=== PATIENT | male | born 1940 | race Caucasian/White ===

== ENCOUNTER 2018-11-03 11:30 | Observation (INO) | payer OTHER ==
--- OUTSIDE RECORDS SUMMARY | 2018-11-03 11:32 | XMS REPORT | Continuity of Care Document ---
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 Allergies, Adverse Reactions, Alerts Substance Category Reaction Severity Reaction Status Date Comments Source type Reported Immunizations Immunization Date Given Site Status Last Updated Comments Source Results Order Results Value Reference Date Interpretation Comments Source Name Range CHEM eGFR 74 08/09 Result Comment: The eGFR is calculated using the CKD -EPI formula. In most young, healthy individuals the eGFR will be >90 mL/min/ 1.73m2. The eGFR declines with age. An eGFR of 60-89 may be normal in PANEL mL/min/1.73m /2015 some populations, particularly the elderly, for whom the CKD-EPI formula has not been extensively validated. Use of the eGFR is not recommended in the following populations: Greater 2 Heights Individuals with unstable creatinine concentrations, including patients and those with serious co-morbid conditions. Patients with extremes in muscle mass or diet. The data above are obtained from the National Kidney Disease Education Program (NKDEP) which additionally recommends that when the eGFR is used in patients with extremes of body mass index for purposes of drug dosing, the eGFR should be multiplied by the estimated BMI. CHEM POC 1.0 mg/dL 0.5 - 1.4 08/09 PANEL Creatinine /2015 [facility] Abdomen/P Abdomen/Pel CT ABDOMEN AND PELVIS WITH AND WITHOUT CONTRAST. - hayley vis w/wo IV /2016 - Greater w/wo IV contrast CT [place] contrast CT INDICATION: Hematuria, dysuria. Read by: Twin Espinosa MD Dictated Date/time: 08/09/15 07:30 Electronically Signed by: Twin Espinosa MD 08/09/15 07:39 FINAL REPORT Axial images with sagittal and coronal reconstructions were obtained following intestinal contrast and prior to and following nonionic venous contrast as requested, Omnipaque 100 cc. The lung bases are clear. There is fatty infiltration of the liver. A small enhancing right lobe hepatic lesion is consistent with hemangioma. The gallbladder and common duct and spleen appear normal. No renal mass, calculus, hydronephrosis or perinephric stranding is noted. There is a tiny right renal cortical cyst and there are small left parapelvic cysts. The adrenals and pancreas appear normal. There is slight circumferential mural thickening of the distal esophagus and there is a possible small hiatal hernia. Extensive diverticular changes involve the sigmoid and there is mild constipation. There is circumferential mural thickening of the undistended urinary bladder. The prostate is not enlarged. No adenopathy or ascites is seen. Minor atherosclerosis and moderate spondylosis are noted. IMPRESSION: 1. Small volume bladder wall thickening. 2. No upper urinary tract pathology. 3. Fatty liver with probable small right lobe hemangioma. 4. Mural thickening of the distal esophagus possible small hiatal hernia. 5. Sigmoid diverticulosis and constipation. SL: 12 Brain Brain w/wo MR BRAIN WITHOUT AND WITH CONTRAST 05/13 - w/wo contrast /2014 - contrast MRI HISTORY: F03.90 Unspecified dementia without behavioral disturbance [facility] MRI COMPARISON: None Read by: Luciano Gupta MD Dictated Date/time: 05/13/15 15:45 Electronically Signed by: Luciano Gupta MD 05/13/15 15:47 FINAL REPORT FINDINGS: Axial T1-weighted images reveal no evidence of subacute hemorrhage. There is no evidence of intracranial mass or shift of midline structures. Axial FLAIR images show minimal periventricular an d subcortical white matter changes consistent with small vessel ischemic disease.. Axial diffusion weighted images reveal no recent infarct. Axial Gradient echo images show reveal no evidence of prior hemorrhage. Axial T2 images show normal flow-voids in the major vascular structures. There is prominence of ventricles and sulci in a fashion consistent with generalized cerebral atrophy. The paranasal sinuses and mastoid air cells are clear. Postcontrast views include axial, coronal and sagittal sequences with T1- weighting and reveal no evidence of enhancing lesion or vascular malformation. IMPRESSION: 1. Mild generalized cerebral atrophy and chronic small vessel ischemic change. 2. No definite acute abnormality identified. SL: 12 Vital Signs Vital Sign Value Date Comments Source BMI Calculated 25.88 06/24/2015 [facility] Height 167.64 cm 06/24/2015 [facility] Weight 72.727 06/24/2015 [facility] Encounters Location Location Encounter Encounter Reason Attending ADM DC Status Source Details Type Number For Provider Date Date Visit [facility] [id number] Maurice 01/01 01/31 Thony Turcios /2013 [facility] Outpatient [id number] Bryant 05/13 05/14 Thony Robles /2014 [facility] Outpatient [id number] Ty 06/24 06/25 Thony Wise /2014 [facility] Outpatient [id number] Gabriela 08/08 08/09 Thony Hook /[address] [facility] [place] [place] Outpatient [id number] GABRIELA 09/[address] [facility] EDMUND /2016 Thony Procedures Procedure Code Date Perfomer Comments Source
--- OUTSIDE RECORDS SUMMARY | 2018-11-03 11:32 | XMS REPORT ---
:1940 [facility] [address] [place] [address] [place] [id number] Care Team Providers Name Role Phone Unavailable Unavailable Unavailable Problems This patient has no known problems. Allergies, Adverse Reactions, Alerts This patient has no known allergies or adverse reactions. Medications This patient has no known medications.
[2018-11-03 12:01] LABS: Absolute Lymphocytes (CBC) 0.9 K/uL (0.7-4.9); Absolute Monocytes 0.6 K/uL (0.1-1.3); Absolute Neutrophil 3.5 K/uL (1.8-8.0); Basophils % 0.6 % (0-1.3); Eosinophils % 2.4 % (0-4.4); Hematocrit 34.2 % (39.6-49.0); Lymphocytes % 17.5 % (15.3-44.8); MPV 7.9 fL (7.6-11.3); RBC Red Blood Cell Count 3.92 M/uL (4.33-5.43)
[2018-11-03 12:03] LABS: Protime INR 1.02
[2018-11-03 12:21] LABS: ALT/SGPT 18 U/L (12-78); AST/SGOT 13 U/L (15-37); Albumin 3.8 g/dL (3.4-5.0); Alkaline Phosphatase 91 U/L (45-117); BUN Blood Urea Nitrogen 22 mg/dL (7-18); Bicarbonate 28 mmol/L (21-32); Bilirubin Direct 0.1 mg/dL (0-0.2); Bilirubin Total 0.5 mg/dL (0.2-1.0); Glucose Level 140 mg/dL (74-106); NT PRO-BNP 334 pg/mL (<450); Sodium Level 140 mmol/L (136-145); Troponin (Emerg Dept Use Only) < 0.02 ng/mL (0.0-0.045)
--- NOTE | 2018-11-03 12:48 | RAD REPORT ---
EXAM DESCRIPTION: CT - Head Brain Wo Cont - 11/03/2018 12:36 pm CLINICAL HISTORY: Syncope COMPARISON: None TECHNIQUE: Computed axial tomography of the head was obtained. IV contrast was not requested. All CT scans are performed using dose optimization technique as appropriate and may include automated exposure control or mA/KV adjustment according to patient size. FINDINGS: An intracranial bleed is not seen . The ventricles are normal in caliber. No extra-axial fluid collection is noted. Diffuse cerebral atrophy is present Fluid within the sinuses/ mastoids is not seen. IMPRESSION: No acute intracranial abnormality is seen. If patient's symptoms persist MRI of the bra in would be recommended.
--- NOTE | 2018-11-03 13:30 | RAD REPORT ---
EXAM DESCRIPTION: RAD - Chest Single View - 11/03/2018 1:20 pm CLINICAL HISTORY: syncope Chest pain. COMPARISON: No comparisons FINDINGS: Portable technique limits examination quality. The lungs are grossly clear. The heart is upper limit normal in size. No displaced fractures. IMPRESSION: No acute intrathoracic process suspected.
--- NOTE | 2018-11-03 14:51 | RAD REPORT ---
EXAM DESCRIPTION: MRI - Brain Wo Cont - 11/03/2018 2:42 pm CLINICAL HISTORY: weakness, syncope Headache, drowsiness, syncope COMPARISON: Head Brain Wo Cont dated 11/03/2018; Brain Wo Cont dated 06/07/2017 TECHNIQUE: Multi-sequence, multiplanar MR imaging of the brain was performed without contrast. FINDINGS: No intracranial hemorrhage, hydrocephalus or extra-axial fluid collections.A prominent noel bal brain atrophy pattern is seen. Periventricular T2 and FLAIR hyperintensity is noted, unchanged fr om prior study and likely chronic microvascular ischemia. No edema or shift of midline structures. No findings to suspect brain mass. DWI is negative for acute CVA. Midline structures are normally formed. Mastoid air cells and paranasal sinuses are clear. IMPRESSION: Negative for acute CVA or other acute intracranial abnormality. Prominent global brain atrophy is identified.
--- NOTE | 2018-11-03 15:17 | EDPHYS ---
Physician Documentation [facility] Name: Gabriel Castillo Age: 78 yrs Sex: Male : 1940 Arrival Date: 11/03/2018 Time: 11:33 Bed 2 Private MD: ED Physician Cachorro Astudillo HPI: 11/03 11:43 This 78 yrs old Male presents to ER via EMS with complaints of Near Syncope. jmm 11:43 The patient has experienced syncope, collapsed. Onset: The symptoms/episode jmm began/occurred acutely, at 10:30. Duration: This was a single episode. This is a 78 year old male that presents to the ED after a syncopal episode which occurred at approx 1030 am. Patient denies chest pain, denies weakness. Family states the patient is at baseline. Patient had a similar episode last year and was diagnosed with anemia and dehydration. Family states they have not administered iron supplements due to GI effects. . Historical: - Allergies: 11:42 No Known Allergies; sg - Home Meds: 11:42 hydrochlorothiazide 50 mg Oral tab 1 tab once daily [Active]; amlodipine 5 mg tab 1 tab sg once daily [Active]; lisinopril 40 mg Oral tab 1 tab once daily [Active]; donepezil 23 mg oral tab 1 tab once daily [Active]; aspirin 81 mg Oral chew 1 tab once daily [Active]; pantoprazole 40 mg oral TbEC 1 tab once daily [Active]; metformin 500 mg Oral Tb24 1 tab once daily [Active]; atorvastatin 20 mg oral tab 1 tab once daily [Active]; - PMHx: 11:42 Parkinsons; Dementia; sg - Immunization history:: Adult Immunizations up to date. - Social history:: Smoking status: Patient/guardian denies using tobacco. - Ebola Screening: : Patient negative for fever greater than or equal to 101.5 degrees Fahrenheit, and additional compatible Ebola Virus Disease symptoms Patient denies exposure to infectious person Patient denies travel to an Ebola-affected area in the 21 days before illness onset No symptoms or risks identified at this time. ROS: 11:43 Constitutional: Negative for fever, chills, and weight loss, Cardiovascular: Negative jm for chest pain, palpitations, and edema, Respiratory: Negative for shortness of breath, cough, wheezing, and pleuritic chest pain. 11:43 Neuro: Positive for syncope. 11:43 All other systems are negative. Exam: 11:43 Constitutional: This is a well developed, well nourished patient who is awake, alert, jmm and in no acute distress. Head/Face: atraumatic. Eyes: EOMI, no conjunctival erythema appreciated ENT: Moist Mucus Membranes Neck: Trachea midline, Supple Chest/axilla: Normal chest wall appearance and motion. Cardiovascular: Regular rate and rhythm. No edema appreciated Respiratory: Normal respirations, no respiratory distress appreciated Abdomen/GI: Non distended, soft Back: Normal ROM Skin: General appearance color normal 11:43 Neuro: Orientation: is normal, Mentation: is normal, Memory: is normal, Abnormal movements: resting tremor, is located in the right arm and left arm. 11:43 Psych: Behavior/mood is pleasant, cooperative. Vital Signs: 11:35 BP 115 / 66; Pulse 81 MON; Resp 14; Pulse Ox 100% on R/A; iw 12:01 BP 112 / 73; Pulse 64; Resp 15; Pulse Ox 100% on R/A; sg 14:00 BP 108 / 70; Pulse 53; Resp 16 S; Temp 97.8(TE); Pulse Ox 98% on R/A; Weight 71.21 kg; iw Height 5 ft. 6 in. (167.64 cm); Pain 0/10; 17:21 BP 100 / 62; Pulse 62; Resp 16 S; Pulse Ox 98% on R/A; sg 14:00 Body Mass Index 25.34 (71.21 kg, 167.64 cm) iw MDM: 11:43 Patient medically screened. [facility] 15:15 Data reviewed: vital signs, nurses notes. Counseling: I had a detailed discussion with [facility] the patient and/or guardian regarding: the historical points, exam findings, and any diagnostic results supporting the discharge/admit diagnosis, lab results, radiology results, the need for further work-up and treatment in the hospital. ED course: I discussed the patient with Dr. Mariee whom will discuss the patient with Dr. Brice for admission. . 04 11:43 Order name: Basic Metabolic Panel [facility] 11/03 11:43 Order name: CBC with Diff; Complete Time: 13:04 [facility] 11/03 11:43 Order name: LFT's; Complete Time: 13:04 [facility] 11/03 11:43 Order name: Magnesium; Complete Time: 13:04 [facility] 11/03 11:43 Order name: NT PRO-BNP; Complete Time: 13:04 [facility] 11/03 11:43 Order name: PT-INR; Complete Time: 13:04 [facility] 11/03 11:43 Order name: Troponin (emerg Dept Use Only); Complete Time: 13:04 [facility] 11/03 11:43 Order name: XRAY Chest (1 view); Complete Time: 13:31 [facility] 11/03 11:44 Order name: Basic Metabolic Panel; Complete Time: 13:04 [facility] 11/03 11:59 Order name: CT Head Brain wo Cont; Complete Time: 13:04 [facility] 11/03 13:20 Order name: MRI - Brain Wo Cont; Complete Time: 14:55 [facility] 11/03 16:43 Order name: US; Complete Time: 16:44 [facility] 11/03 11:43 Order name: EKG; Complete Time: 11:44 [facility] 11/03 11:43 Order name: Cardiac monitoring; Complete Time: 11:58 [facility] 11/03 11:43 Order name: EKG - Nurse/Tech; Complete Time: 14:07 [facility] 11/03 11:43 Order name: IV Saline Lock; Complete Time: 11:59 [facility] 11/03 11:43 Order name: Labs collected and sent; Complete Time: 11:59 [facility] 11/03 11:43 Order name: O2 Per Protocol; Complete Time: 11:58 [facility] 11/03 11:43 Order name: O2 Sat Monitoring; Complete Time: 11:58 [facility] 11/03 15:16 Order name: EKG - Nurse/Tech; Complete Time: 15:44 [facility] 11/03 15:24 Order name: CONS Physician Consult [facility] 11/03 15:24 Order name: Heart Healthy EDMT Administered Medications: 15:50 Drug: NS 0.9% 500 ml Route: IV; Rate: bolus; Site: right antecubital; sg 17:54 Drug: Xarelto 20 mg Route: PO; iw Disposition: 19:07 Co-signature as Attending Physician, Cachorro Astudillo MD. rn Disposition: 11/03/18 15:16 Hospitalization ordered by Lucille Brice for Observation. Preliminary diagnosis are Syncope and collapse, Unspecified atrial fibrillation, Dehydration. - Bed requested for Telemetry/MedSurg (observation). - Status is Observation. hb - Condition is Stable. - Problem is new. - Symptoms have improved. UTI on Admission? No Signatures: Dispatcher [employer] EDGavi Nunes RN Sina Schwartz, RN RN Vladimir Seaman PA PA [facility] Mary Tellez RN RN iw Nieto, Roman, MD MD rn Baxter, Heather, RN RN Corrections: (The following items were deleted from the chart) 18:00 15:16 Hospitalization Ordered by Lucille Brice MD for Observation. Preliminary dw diagnosis is Syncope and collapse; Unspecified atrial fibrillation; Dehydration. Bed requested for Telemetry/MedSurg (observation). Status is Observation. Condition is Stable. Problem is new. Symptoms have improved. UTI on Admission? No. [facility] 18:42 18:00 11/03/2018 15:16 Hospitalization Ordered by Lucille Brice MD for Observation. hb Preliminary diagnosis is Syncope and collapse; Unspecified atrial fibrillation; Dehydration. Bed requested for Telemetry/MedSurg (observation). Status is Observation. Condition is Stable. Problem is new. Symptoms have improved. UTI on Admission? No. dw
--- NOTE | 2018-11-03 15:17 | ER ---
Nurse's Notes [facility] Name: Gabriel Castillo Age: 78 yrs Sex: Male : 1940 Arrival Date: 11/03/2018 Time: 11:33 Bed 2 Private MD: Diagnosis: Syncope and collapse;Unspecified atrial fibrillation;Dehydration Presentation: 11/03 11:33 Presenting complaint: EMS states: pt was at a day stay respite center, when staff sg members saw him slump forward in a chair while maintaining an upright position, pt appeared unresponsive with eyes opened, no LOC no Trauma, no falls, no hx of seizure like activity. 11:33 Method Of Arrival: EMS: [facility] iw 11:33 Acuity: DAVID 3 iw 11:35 Transition of care: patient was not received from another setting of care. Onset of sg symptoms was November 03, 2018. Risk Assessment: Do you want to hurt yourself or someone else? Patient reports no desire to harm self or others. Initial Sepsis Screen: Does the patient meet any 2 criteria? No. Patient's initial sepsis screen is negative. Does the patient have a suspected source of infection? No. Patient's initial sepsis screen is negative. Care prior to arrival: IV initiated. 22 GA, in the right antecubital area, Glucose check: 160. Historical: - Allergies: 11:42 No Known Allergies; sg - Home Meds: 11:42 hydrochlorothiazide 50 mg Oral tab 1 tab once daily [Active]; amlodipine 5 mg tab 1 tab sg once daily [Active]; lisinopril 40 mg Oral tab 1 tab once daily [Active]; donepezil 23 mg oral tab 1 tab once daily [Active]; aspirin 81 mg Oral chew 1 tab once daily [Active]; pantoprazole 40 mg oral TbEC 1 tab once daily [Active]; metformin 500 mg Oral Tb24 1 tab once daily [Active]; atorvastatin 20 mg oral tab 1 tab once daily [Active]; - PMHx: 11:42 Parkinsons; Dementia; sg - Immunization history:: Adult Immunizations up to date. - Social history:: Smoking status: Patient/guardian denies using tobacco. - Ebola Screening: : Patient negative for fever greater than or equal to 101.5 degrees Fahrenheit, and additional compatible Ebola Virus Disease symptoms Patient denies exposure to infectious person Patient denies travel to an Ebola-affected area in the 21 days before illness onset No symptoms or risks identified at this time. Screenin:45 Abuse screen: Denies threats or abuse. Denies injuries from another. Nutritional sg screening: No deficits noted. Tuberculosis screening: No symptoms or risk factors identified. Fall Risk No fall in past 12 months (0 pts). Secondary diagnosis (15 points) dementia, Gait- Impaired (20 pts.). Mental Status- Overestimates/Forgets Limitations (15 pts.). Total Garcia Fall Scale indicates High Risk Score (45 or more points). Fall prevention measures have been instituted. Side Rails Up X 2 Frequent Obs/Assessments Occuring Family Present and informed to notify staff if the need to leave the bedside. Assessment: 11:43 General: Appears in no apparent distress. comfortable, well groomed, well developed, sg well nourished, Behavior is calm, cooperative, appropriate for age. Pain: Denies pain. Neuro: Level of Consciousness is awake, alert, obeys commands, Oriented to person, Speech Pathology Assistant are equal bilaterally Speech is normal, Facial symmetry appears normal, Pupils are constricted. Cardiovascular: Capillary refill is sluggish in bilateral fingers Chest pain is denied. Respiratory: Airway is patent Respiratory effort is even, unlabored, Respiratory pattern is regular, symmetrical. GI: Abdomen is round non-distended. : No signs and/or symptoms were reported regarding the genitourinary system. EENT: No signs and/or symptoms were reported regarding the EENT system. Derm: Skin is intact, is fragile, is thin, Skin is dry, Skin is dusky, Skin temperature is cool. Musculoskeletal: Circulation, motion, and sensation intact. Range of motion: intact in all extremities. 13:00 Reassessment: Patient appears in no apparent distress at this time. Patient and/or sg family updated on plan of care and expected duration. Pain level reassessed. pt family at bedside at this time, awaiting results, awaiting new orders for CT/MRI, pt family stated undertsanding. 14:00 Reassessment: Patient appears in no apparent distress at this time. Patient and/or sg family updated on plan of care and expected duration. Pain level reassessed. awaiting results for radiology, pt family stated understanding Patient states symptoms have not improved. 15:00 Reassessment: Patient appears in no apparent distress at this time. Patient and/or sg family updated on plan of care and expected duration. Pain level reassessed. pt family at bedside, no new orders received at this time, pt has not provided a urine specimen, pt brief remains clean and dry. 15:10 Reassessment: Patient appears in no apparent distress at this time. bedside monitor sg indicates a EKG reading of 35 bpm, with pause, Thomas RICHMOND notified, a repeat EKG has been ordered, awaiting EKG at this time. 16:00 Reassessment: Patient appears in no apparent distress at this time. Patient and/or sg family updated on plan of care and expected duration. Pain level reassessed. awaiting a bed assignment at this time,pt family at bedside, no new orders received at this time, pt has not provided a urine specimen, pt brief remains clean and dry. 17:00 Reassessment: pt family at bedside, no new orders received at this time, pt has not sg provided a urine specimen, pt brief remains clean and dry. 18:00 Reassessment: Patient appears in no apparent distress at this time. Patient and/or sg family updated on plan of care and expected duration. Pain level reassessed. pt family remains at bedside, attempt to call report to Bonita OLSEN for room 419. Vital Signs: 11:35 BP 115 / 66; Pulse 81 MON; Resp 14; Pulse Ox 100% on R/A; iw 12:01 BP 112 / 73; Pulse 64; Resp 15; Pulse Ox 100% on R/A; sg 14:00 BP 108 / 70; Pulse 53; Resp 16 S; Temp 97.8(TE); Pulse Ox 98% on R/A; Weight 71.21 kg; iw Height 5 ft. 6 in. (167.64 cm); Pain 0/10; 17:21 BP 100 / 62; Pulse 62; Resp 16 S; Pulse Ox 98% on R/A; sg 14:00 Body Mass Index 25.34 (71.21 kg, 167.64 cm) ED Course: 11:33 Patient arrived in ED. iw 11:33 Vladimir Robison PA is PHCP. [facility] 11:33 Cachorro Astudillo MD is Attending Physician. [facility] 11:35 Triage completed. iw 11:37 Sina Yanez, PRETTY is Primary Nurse. sg 11:37 Arm band placed on. sg 11:43 No provider procedures requiring assistance completed. sg 11:43 Maintain EMS IV. Dressing intact. Site clean \T\ dry. Gauge \T\ site: 22 G RAC. IV is sg patent, is intact, with fluids infusing freely, with good blood return. 11:45 Patient has correct armband on for positive identification. Bed in low position. Call sg light in reach. Side rails up X2. Pulse ox on. NIBP on. 11:54 EKG done, by manufacturing technology analyst. reviewed by Vladimir RICHMOND. sm3 12:35 CT Head Brain wo Cont In Process Unspecified. EDMS 13:19 XRAY Chest (1 view) In Process Unspecified. EDMS 14:27 Patient moved to MRI via wheelchair. em2 14:43 MRI - Brain Wo Cont In Process Unspecified. EDMS 14:53 MRI completed. Patient tolerated well. Patient moved back from MRI. em2 15:16 Lucille Brice MD is Hospitalizing Provider. [facility] 15:31 Repeat ekg was done. 3 18:31 Patient admitted, IV remains in place. intact, No redness/swelling at site. sg Administered Medications: 15:50 Drug: NS 0.9% 500 ml Route: IV; Rate: bolus; Site: right antecubital; sg 17:54 Drug: Xarelto 20 mg Route: PO; iw Outcome: 15:16 Decision to Hospitalize by Provider. [facility] 18:31 Admitted to Tele accompanied by tech, family with patient, via stretcher, room 419, sg with chart, Report called to Bonita OLSEN 18:31 Condition: stable 18:31 Discharge instructions given to family, Instructed on the need for admit, Demonstrated understanding of instructions. 18:42 Patient left the ED. hb Signatures: Dispatcher [employer] EDMS Sina Yanez RN RN sg Mickail, Joel, PA PA jmm Williams, Irene, RN RN Charles Miller em2 Leeanna Tidwell RN RN Divine Miller sm3 Corrections: (The following items were deleted from the chart) 12:01 11:33 Presenting complaint: EMS states: pt was at a day stay respite center, when staff sg members saw him slump forward in a chair while maintaining an upright position, pt appeared unresponsive with eyes opened, no LOC no Trauma, no falls, no hx of seizure like activity iw 14:02 14:00 BP 108 / 70; Pulse 53bpm; Resp 16bpm; Spontaneous; Pulse Ox 98% RA; Pain 0/10; iw iw
[2018-11-03] MEDS ORDERED: NA CHLORIDE 0.9% 500 ML ONE (16:05)
--- NOTE | 2018-11-03 16:43 | RAD REPORT ---
EXAM DESCRIPTION: USCarotid Artery Bilateral11/03/2018 4:33 pm CLINICAL HISTORY: Syncope COMPARISON: None FINDINGS: The velocity of the right internal carotid artery equals 54 cm/sec. The right ICA/CCA rati o 0.7 The velocity of the left internal carotid artery equals 61 cm/sec. The left ICA/CCA ratio 0.9 Mild plaque is present within the carotid arteries. The vertebral arteries demonstrate antegrade flow IMPRESSION: Mild plaque within the carotid arteries without evidence of a hemodynamically significan t stenosis NASCET criteria used. Mild 0-49% stenosis Moderate 50-69% stenosis Severe 70-99% stenosis
--- NOTE | 2018-11-03 17:15 | EKG ---
Test Date: 2018-11-03 Test Time: 15:27:08 Administrative Services Coordinator: BUSHRA MEASUREMENT RESULTS: Intervals: Rate: 61 TX: QRSD: 86 QT: 426 QTc: 428 [place]: P: TX: QRS: -15 T: -1 INTERPRETIVE STATEMENTS: Atrial fibrillation Abnormal ECG Compared to ECG 11/03/2018 11:50:32 No significant changes Electronically Signed On 11-03-18 17:14:37 CDT by Claudio Claudio
--- NOTE | 2018-11-03 17:15 | EKG ---
Test Date: 2018-11-03 Test Time: 11:50:32 Data Integration Architect: ANEL MEASUREMENT RESULTS: Intervals: Rate: 70 IL: QRSD: 82 QT: 420 QTc: 453 [place]: P: IL: QRS: -14 T: 2 INTERPRETIVE STATEMENTS: Atrial fibrillation Abnormal ECG No previous ECG available for comparison Electronically Signed On 11-03-18 17:13:28 CDT by Claudio Claudio
[2018-11-03] MEDS ORDERED: RIVAROXABAN 20 MG TABLET PO ONE (18:00)
[2018-11-03] MEDS ORDERED: ONDANSETRON 4 MG/2 ML VIAL IV PRN (19:39)
--- NOTE | 2018-11-03 22:54 | CON ---
History Of Present Illness: Mr. Castillo was sent from the Alzheimer's unit to the hospital. He slump ed over and he had tonic-clonic activity, tongue-biting, confusion and the people's witnessed this we re quite certain that this is seizure. He had a similar episode in around first of the year and was seen in [place] ER. Apparently, he has had atrial fibrillation come and go, but he is not on any an ticoagulants. Mr. Castillo has very severe dementia. A brain MRI shows atrophy, but no strokes. Elec trocardiograms show atrial fib. A carotid artery ultrasound shows mild plaque with no significant st enosis. Medications: We do not have a list of his outpatient medications. We think they may include amlodip ine, hydrochlorothiazide, lisinopril, donepezil, aspirin, Protonix, metformin, and atorvastatin. Past Medical History: We understand he has a history of Parkinson's disease and dementia. Physical Examination: General: He is noncommunicative. He makes eye contact and cannot answer any questions or seemingly understand. HEART: Irregularly irregular that is going about 70 beats per minute. LUNGS: Clear. ABDOMEN: Soft. EXTREMITIES: Distal pulses are normal. Impression: The patient probably had a seizure. I am not sure if the focus was an old stroke or not . MRI does not show it. He is certainly at risk for having strokes with atrial fib and no anticoagu lation. I would recommend that we anticoagulate him. I would not recommend we try and revert his rh ythm to sinus and keep the rate controlled. It seems to be controlled without any major effort and Marquez Lo decide whether his spell might have been a seizure or something else altogether. We will mo nitor his heart rhythm and see if gets bradycardic sometimes, it could be when he switches from atria l fibrillation to sinus rhythm. He has pauses that make him fall. Thank you very much for your kind referral of Mr. Castillo. I will follow him with you. CHIQUITA/SANDRA Voice ID: [id number] Report ID: [id number]
[2018-11-03 23:06] VITALS: BMI 25.3
[2018-11-04 06:12] LABS: Absolute Lymphocytes (CBC) 1.2 K/uL (0.7-4.9); Absolute Monocytes 0.6 K/uL (0.1-1.3); Absolute Neutrophil 2.9 K/uL (1.8-8.0); Basophils % 0.7 % (0-1.3); Eosinophils % 2.9 % (0-4.4); Hematocrit 31.5 % (39.6-49.0); Lymphocytes % 24.2 % (15.3-44.8); MPV 7.9 fL (7.6-11.3); RBC Red Blood Cell Count 3.66 M/uL (4.33-5.43)
[2018-11-04 06:28] LABS: Albumin 3.4 g/dL (3.4-5.0); Bilirubin Total 0.5 mg/dL (0.2-1.0); Magnesium 2.1 mg/dL (1.8-2.4); Phosphorus 3.2 mg/dL (2.5-4.9); Potassium 3.8 mmol/L (3.5-5.1); Protein, Total 6.2 g/dL (6.4-8.2)
[2018-11-04] MEDS ORDERED: POTASSIUM 25 MEQ EFFERV TAB PO ONE (07:23)
[2018-11-04] MEDS ORDERED: PNEUMOCOCCAL VACCINE 0.5 ML IMVAC ONE (08:00)
--- NOTE | 2018-11-04 08:08 | P.HP ---
Certification for Inpatient Patient admitted to: Observation With expected LOS: <2 Midnights Patient will require the following post-hospital care: None Practitioner: I am a practitioner with admitting privileges, knowledge of patient current condition, hospital course, and medical plan of care. Services: Services provided to patient in accordance with Admission requirements found in Title 42 Section 412.3 of the Code of Federal Regulations Patient History Date of Service: 11/03/18 History of Present Illness: The 78-year-old gentleman who appear to have it generalized tonic clonic seizure. This is the 2nd event he had this past year according to his . In the emergency room he was found to have atrial fibrillation. Concern initially was that he had a stroke and an MRI was performed. This came back negative. He lives in an Alzheimer's unit because of advanced Alzheimer's dementia. Patient tends to sleep quite a bit according to his . Will get an EEG as well as evaluation by his neurologist, Dr. Lo. Anticipate discharge back to the Alzheimer's unit in the next 24-48 hr. Allergies No Known Allergies Allergy (Unverified 11/03/18 15:51) Home Medications: Amlodipine Besylate 5 mg PO DAILY 11/03/18 Aspirin 81 mg PO DAILY 11/03/18 Atorvastatin Calcium [Lipitor*] 20 mg PO BEDTIME 11/03/18 Donepezil HCl 10 mg PO BID 11/03/18 Lisinopril 40 mg PO DAILY 11/03/18 Memantine HCl 10 mg PO BID 11/03/18 Metformin HCl 500 mg PO BID 11/03/18 PARoxetine HCl [Paxil*] 10 mg PO DAILY 11/03/18 Pantoprazole Sodium 40 mg PO DAILY 11/03/18 Tamsulosin HCl 0.4 mg PO DAILY 11/03/18 glipiZIDE [Glucotrol*] 5 mg PO DAILY 11/03/18 hydroCHLOROthiazide [Hydrochlorothiazide] 50 mg PO DAILY 11/03/18 - Past Medical/Surgical History Has patient received pneumonia vaccine in the past: No Diabetic: Yes -: HTN -: dementia -: alzheimers -: hyperlipidemia -: GERD -: BPH -: prostate ca Past Surgical History: Unable to obtain - Family History Mother History Unknown: Yes Notes: in car accident when patient was young Father History Unknown: Yes Notes: in car accident when patient was young Brother History Unknown: Yes - Social History Smoking Status: Former smoker Alcohol use: Yes CD- Drugs: No Caffeine use: Yes Place of Residence: Home Review of Systems 10-point ROS is otherwise unremarkable Physical Examination - Vital Signs Temperature: 98.0 F Blood Pressure: 110/61 Pulse: 70 Respirations: 16 Pulse Ox (%): 98 - Physical Exam General: Alert, In no apparent distress, Oriented x3 HEENT: Atraumatic, PERRLA, Mucous membr. moist/pink, EOMI, Sclerae nonicteric Neck: Supple, 2+ carotid pulse no bruit, No LAD, Without JVD or thyroid abnormality Respiratory: Clear to auscultation bilaterally, Normal air movement Cardiovascular: Regular rate/rhythm, Normal S1 S2, No murmurs Gastrointestinal: Normal bowel sounds, Soft and benign, Non-distended, No tenderness Musculoskeletal: No clubbing, No swelling, No tenderness Integumentary: No rashes Neurological: Normal gait, Normal speech, Normal strength at 5/5 x4 extr, Normal tone, Sensation intact, Cranial nerves 3-12 intact, Normal affect Lymphatics: No axilla or inguinal lymphadenopathy - Studies Laboratory Data (last 24 hrs) 11/03/18 11:36: PT 12.0, INR 1.02 11/03/18 11:36: WBC 5.1, Hgb 11.4 L, Hct 34.2 L, Plt Count 156 11/03/18 11:36: Sodium 140, Potassium 4.0, BUN 22 H, Creatinine 1.21, Glucose 140 H, Magnesium 2.0, Total Bilirubin 0.5, AST 13 L, ALT 18, Alkaline Phosphatase 91 Assessment & Plan - Problems (Diagnosis) (1) Alzheimer's dementia Current Visit: Yes Status: Acute (2) Generalized tonic-clonic seizure Current Visit: Yes Status: Acute (3) Atrial fibrillation Current Visit: Yes Status: Acute - Plan Plan: 1. EEG and neurology consultation 2. Start Keppra 3. Appreciate Cardiology input for atrial fibrillation recommendation. Continue anti coagulation 4. GI and DVT prophylaxis Discharge Plan: Intermediate Plan to discharge in: Greater than 2 days - Advance Directives Does patient have a Living Will: No Does patient have a Durable POA for Healthcare: No - Code Status/Comfort Care Code Status Assessed: Yes Code Status: Full Code Critical Care: No Time Spent Managing PTS Care (In Minutes): 40
[2018-11-04] MEDS ORDERED: levETIRAcetam 500 MG TAB PO SCH (09:00)
--- NOTE | 2018-11-04 14:04 | P.PN ---
Subjective Date of Service: 11/04/18 Subjective: Tolerating diet, Improving, Working w/ PT, Doing well, Other (No Seizure activity since last night. Denies CP, SOB or any other c/o) Review of Systems 10-point ROS is otherwise unremarkable Physical Examination - Vital Signs Temperature: 98.0 F Blood Pressure: 110/61 Pulse: 79 Respirations: 18 Pulse Ox (%): 98 - Physical Exam General: Alert, In no apparent distress, Other (Pill roiling Tremor Noted ) Respiratory: Normal air movement, Expiratory wheezes Cardiovascular: Regular rate/rhythm, Normal S1 S2 Gastrointestinal: Normal bowel sounds, No tenderness Musculoskeletal: No tenderness Integumentary: No rashes Neurological: Normal speech, Abnormal tone, Abnormal affect, Dementia Lymphatics: No axilla or inguinal lymphadenopathy - Studies Medications List Reviewed: Yes Assessment And Plan - Current Problems (Diagnosis) (1) Generalized tonic-clonic seizure Current Visit: Yes Status: Acute Plan: Pt presenting with Syncopal episode, most likely Seizure like activity -Currently started on Keppra 500mg Daily -Neurology consulted. awaiting reccs -Brain MRI, Carotid Doppler and Head CT negative -EEG pending at this time -F.u with Reccs (2) Atrial fibrillation Current Visit: Yes Status: Acute Plan: New onset Atrial Fibrillation -Cardiology consulted. appreciated Reccs -Anticoagulation with Xarelto -No Antiarrhythmics at this time recc (3) Alzheimer's dementia Current Visit: Yes Status: Chronic Qualifiers: Alzheimer's disease onset: late-onset Dementia behavioral disturbance: without behavioral disturbance Qualified Code(s): G30.1 - Alzheimer's disease with late onset; F02.80 - Dementia in other diseases classified elsewhere without behavioral disturbance (4) HTN (hypertension) Current Visit: Yes Status: Chronic Qualifiers: Hypertension type: essential hypertension Qualified Code(s): I10 - Essential (primary) hypertension (5) Diabetes Current Visit: Yes Status: Chronic Qualifiers: Diabetes mellitus type: type 2 Diabetes mellitus halfway insulin use: without buttermilk drier operator use Diabetes mellitus complication status: without complication Qualified Code(s): E11.9 - Type 2 diabetes mellitus without complications (6) Hyperlipidemia Current Visit: Yes Status: Chronic Qualifiers: Hyperlipidemia type: mixed hyperlipidemia Qualified Code(s): E78.2 - Mixed hyperlipidemia - Plan Pending clinical Improvement. Awaiting EEG and Neurology consultation at this time. Continue with Keprra for now Discharge Plan: Home Plan to discharge in: Greater than 2 days - Code Status/Comfort Care Code Status Assessed: Yes Critical Care: No
[2018-11-04] MEDS ORDERED: RIVAROXABAN 20 MG TABLET PO SCH (17:00)
[2018-11-04] MEDS: levETIRAcetam 500 MG/5 ML OSYR PO SCH ×2 (20:37→21:00)
[2018-11-04 20:38] VITALS: BP 90/60; TEMP 98
[2018-11-04] MEDS ORDERED: DONEPEZIL HCL 5 MG TAB PO SCH (21:00)
[2018-11-04] MEDS ORDERED: HOME MED 1 EA UNK (Donepezil Hcl [Donepezil Hcl] 10 MG) PO SCH (21:00)
[2018-11-04] MEDS ORDERED: levETIRAcetam 500 MG/5 ML OSYR PO SCH (21:00)
[2018-11-04] MEDS ORDERED: MEMANTINE HCL 10 MG TABLET PO SCH (21:00)
[2018-11-04] MEDS ORDERED: ATORVASTATIN 20 MG TAB PO SCH (21:00)
[2018-11-04 21:50] VITALS: O2SAT 98
--- NOTE | 2018-11-05 02:25 | CON ---
Date of Consultation: 11/04/2018 Reason: Possible seizure. History Of Present Illness: A 78-year-old gentleman with advanced Alzheimer's disease. He actually lives with his . He was at a gathering place, which is a local organization for patients with de mentia. It was noticed that he slumped over and had some twitching and jerking. The does not r eally describe tonic or colonic activity. He was confused, but he is very confused at baseline, brou ght to the emergency department, was in atrial fibrillation, which may be chronic. He was admitted t o the [facility] given the atrial fibrillation and the possible seizure. Brain MRI did not demonstrate a new stroke. Doppler did not demonstrate any stenosis. EEG did not actually demonstrate any epile ptiform abnormalities. Several episodes of jerking were not associated with any changes in the EEG. EKG still demonstrates Afib. He is on Xarelto and Keppra has been added to his regimen as well. Co nsultation was requested. Past Medical History: Advanced Alzheimer's disease, hypertension, hyperlipidemia, depression. Medications: Norvasc, aspirin, Lipitor, Aricept, Keppra 500 twice daily, lisinopril, Namenda 10 twic e daily, Paxil has been added by his primary care physician, Dr. Atkinson. He is on Xarelto 20, Flomax. Allergies: NONE. Social History: Drinks on occasion. Does not smoke. Requires assistance with all activities of hnana ly living. Family History: Noncontributory. Review of Systems: General: Chronically ill. Eyes: Negative. Ears, Nose, and Throat: No dysphagia. Cardiovascular: Atrial fibrillation, hypertension. Pulmonary: Negative. GI: Negative. : Negative. Musculoskeletal: Negative. Neurologic: As noted. Psychiatric: Negative. Endocrine: Negative. Hematologic: On Xarelto. Physical Examination: Vital Signs: 97.9, 56, 18, 91/51. General: He is an elderly gentleman, lying in bed, arousable, confused, difficulty even following si mple commands or completing a sentence. Neurologic: Pupils reactive. Ocular motion full. Noriega full. Face symmetric. Tongue midline. S oft palate elevates bilaterally. Extremity strength greater than 4+ throughout. He has resting trem or bilaterally, right greater than left, with cogwheeling and rigidity. Sensation intact to painful stimuli. Reflexes 1/4. Toes are downgoing. Cerebellar exam demonstrates no ataxia. Gait not teste d. Pertinent Laboratory Data: As noted. EKG, QTc 428. Impression: Syncope episodes not highly convincing for seizure, although he has had 2 events this ye ar and could potentially be related to some type of bradyarrhythmia as well. Plan: I would decrease the Keppra to 500 and let him go home with his . He can follow up in the clinic in 1-2 weeks. Thank you for the consult. LE Voice ID: [id number] Report ID: [id number]
[2018-11-05] MEDS ORDERED: PANTOPRAZOLE 40MG TABLET PO SCH (07:30)
[2018-11-05] MEDS ORDERED: HOME MED 1 EA UNK (Lisinopril [Lisinopril] 40 MG) PO SCH (09:00)
[2018-11-05] MEDS ORDERED: hydroCHLOROthiazide 25 MG TAB PO SCH (09:00)
[2018-11-05] MEDS ORDERED: LISINOPRIL 20 MG TAB PO SCH (09:00)
[2018-11-05] MEDS ORDERED: TAMSULOSIN 0.4 MG SR CAP PO SCH (09:00)
[2018-11-05] MEDS ORDERED: ASPIRIN 81 MG CHEWABLE TABLET PO SCH (09:00)
[2018-11-05] MEDS ORDERED: AMLODIPINE 5 MG TAB PO SCH (09:00)
[2018-11-05] MEDS ORDERED: PARoxetine HCl 10 MG TAB PO SCH (09:00)
[2018-11-05] MEDS ORDERED: HYDROCHLOROTHIAZIDE 50 MG PO SCH (09:00)
--- NOTE | 2018-11-07 08:34 | ECHO ---
HEIGHT: 5 ft 6 in WEIGHT: 157 lb 0 oz DATE OF STUDY: 11/04/[address]: Lucille Brice MD 2-DIMENSIONAL: YES M.MODE: YES DOPPLER: YES COLOR FLOW: YES TDS: NO PORTABLE: NO DEFINITY: NO BUBBLE STUDY: NO DIAGNOSIS: SYNCOPAL EPISODE CARDIAC HISTORY: CATHERIZATION: NO SURGERY: NO PROSTHETIC VALVE: NO PACEMAKER: NO MEASUREMENTS (cm) DIASTOLIC (NORMALS) SYSTOLIC (NORMALS) IVSd 1.0 (0.6-1.2) LA Diam 4.1 (1.9-4.0) LVEF 73% LVIDd 4.8 (3.5-5.7) LVIDs 2.8 (2.0-3.5) %FS 42% LVPWd 1.0 (0.6-1.2) Ao Diam 3.3 (2.0-3.7) 2 DIMENSIONAL ASSESSMENT: RIGHT ATRIUM: DILATED LEFT ATRIUM: DILATED RIGHT VENTRICLE: DILATED LEFT VENTRICLE: NORMAL TRICUSPID VALVE: NORMAL MITRAL VALVE: NORMAL PULMONIC VALVE: NORMAL AORTIC VALVE: NORMAL PERICARDIAL EFFUSION: NONE AORTIC ROOT: NORMAL LEFT VENTRICULAR WALL MOTION: NORMAL DOPPLER/COLOR FLOW: MILD TO MODERATE AORTIC AND TRICUSPID REGURGITATION. COMMENTS: MILD TO MODERATE AORTIC AND TRICUSPID REGURGITATION. NORMAL LEFT VENTRICULAR EJECTION FRACTION. MILD RIGHT ATRIAL ENLARGEMENT AND RIGHT VENTRICULAR ENLARGEMENT. TECHNOLOGIST: Kya RIZVI
--- NOTE | 2018-11-09 08:53 | EEG ---
CHART: [id number] TEST ID#: [id number] DATE OF STUDY: 11/04/2018 THE EEG WAS RECORDED PORTABLE IN THE PATIENTS ROOM ON A 17 CHANNEL MACHINE. ELECTRODES WERE APPLIED IN THE USUAL MANNER USING THE INTERNATIONAL 10-20 SYSTEM. THE WAKING BACKGROUND RHYTHM IN THIS RECORD CONSISTS OF POORLY DEVELOPED AND POORLY ORGANIZED WAVES OF UP TO 8 HZ., MAXIMAL IN THE POSTERIOR HEAD REGIONS WHICH ATTENUATE NORMALLY WITH EYE OPENING. ADMIXED AND SUPERIMPOSED SLOW WAVES OF 4-6 HZ ARE NOTED IN A SHIFTING DISTRIBUTION. SEVERAL JERKS ARE NOT ASSOCIATED WITH ANY SEGMENT IN THE ONGOING ELECTROENCEPHALOGRAM RECORD. THERE ARE NO FOCAL OR LATERALIZING FEATURES. NO EPILEPTIFORM ACTIVITY APPEARS. SLEEP DID NOT OCCUR. HYPERVENTILATION WAS NOT PERFORMED. PHOTIC STIMULATION PRODUCED POOR DRIVING BILATERALLY. IMPRESSION: ABNORMAL EEG BECAUSE OF GENERALIZED AND EXCRSSIVE SLOWING OF THE BACKGROUND. THE ABOVE SUGGESTS DIFFUSE CEREBRAL DYSFUNCTION.
== END 2018-11-04 22:35 | disposition home or self-care (01) ==
LOC: ER 11:30 → ERHOLD 15:24 → 4TH 18:36
PROVIDERS: ADMIT Family Medicine; ATTEND Hospitalist
DX: G40.89 Other seizures (principal); G30.9 Alzheimer's disease, unspecified; F02.81 Dementia in other diseases classified elsewhere, unspecified severity, with behavioral disturbance; I48.91 Unspecified atrial fibrillation; C61 Malignant neoplasm of prostate; E78.5 Hyperlipidemia, unspecified; K21.9 Gastro-esophageal reflux disease without esophagitis; Z87.891 Personal history of nicotine dependence
CPT/HCPCS: 93005 ×2; 93306; 95819; 85025 ×2; 80048; 36415; 83735 ×2; 84100; 85610; 82962 ×4; 80076; 84484; 80053; 83880; 70450; 71045; 93880; 70551; 97165; 99285; G0378 ×2; 90670

== ENCOUNTER 2019-07-28 17:00 | Inpatient (IN) | payer OTHER ==
--- OUTSIDE RECORDS SUMMARY | 2019-07-28 17:02 | XMS REPORT ---
:1940 [facility] Address [address] [place] [address] [place] [id number] Care Team Providers Name Role Phone Unavailable Unavailable Unavailable Problems This patient has no known problems. Allergies, Adverse Reactions, Alerts This patient has no known allergies or adverse reactions. Medications This patient has no known medications.
[2019-07-28] MEDS ORDERED: NA CHLORIDE 0.9% 1,000 ML ONE ×2 (18:43→23:28)
--- NOTE | 2019-07-28 19:04 | RAD REPORT ---
EXAM DESCRIPTION: Joe Single View07/28/2019 6:53 pm CLINICAL HISTORY: cough COMPARISON: none FINDINGS: The lungs appear clear of acute infiltrate. The heart is borderline enlarged IMPRESSION: No acute abnormalities displayed
--- NOTE | 2019-07-28 19:07 | RAD REPORT ---
EXAM DESCRIPTION: CT - Head Brain Wo Cont - 07/28/2019 6:55 pm CLINICAL HISTORY: Alteration of awareness/confusion COMPARISON: October 2018 TECHNIQUE: Computed axial tomography of the head was obtained. IV contrast was not requested. All CT scans are performed using dose optimization technique as appropriate and may include automated exposure control or mA/KV adjustment according to patient size. FINDINGS: An intracranial bleed is not seen . The ventricles are normal in caliber. No extra-axial fluid collection is noted. Diffuse cerebral atrophy. Fluid within the sinuses/ mastoids is not seen. IMPRESSION: No acute intracranial abnormality is seen.
[2019-07-28 20:20] LABS: Absolute Lymphocytes (CBC) 0.3 K/uL (0.7-4.9); Basophils % 0.2 % (0-1.3); Hematocrit 24.6 % (39.6-49.0); Lymphocytes % 7.9 % (15.3-44.8); MPV 7.5 fL (7.6-11.3); RBC Red Blood Cell Count 2.94 M/uL (4.33-5.43)
[2019-07-28 20:26] LABS: Protime INR 1.15
[2019-07-28 20:39] LABS: Urine Appearance CLOUDY; Urine Bilirubin NEGATIVE (NEG); Urine Blood 3+ (NEG); Urine Color DK YELLOW; Urine Glucose NEGATIVE (NEG); Urine Protein 1+ (NEG); Urine pH 6.5 (5.0-7.0)
[2019-07-28 20:42] LABS: ALT/SGPT 19 U/L (12-78); AST/SGOT 12 U/L (15-37); Albumin 3.3 g/dL (3.4-5.0); Alkaline Phosphatase 102 U/L (45-117); BUN Blood Urea Nitrogen 19 mg/dL (7-18); Bicarbonate 27 mmol/L (21-32); Bilirubin Direct 0.2 mg/dL (0-0.2); Bilirubin Total 0.7 mg/dL (0.2-1.0); CKMB Creatine Kinase MB < 1.0 ng/mL (0.3-3.6); Creatine Phosphokinase 123 U/L (39-308); Glucose Level 99 mg/dL (74-106); Lipase 143 U/L (73-393); Potassium 3.9 mmol/L (3.5-5.1); Protein, Total 6.5 g/dL (6.4-8.2); Sodium Level 140 mmol/L (136-145); Troponin (Emerg Dept Use Only) < 0.02 ng/mL (0.0-0.045)
[2019-07-28 20:43] LABS: Urine White Blood Cell Casts OK
[2019-07-28 20:44] LABS: Blood Morphology Comment NOT SEEN (NOT SEEN); Platelet Estimate DECR
[2019-07-28] MEDS ORDERED: ACETAMINOPHEN 650MG/RECT SUPP PR ONE (20:54)
[2019-07-28] MEDS ORDERED: ACETAMINOPHEN 325 MG/SUPP PR ONE (20:55)
[2019-07-28 20:57] LABS: Urine RBC TNTC /HPF (NONE SEEN)
[2019-07-28 20:58] LABS: Urine Amorphous Sediment 2+ /HPF (NONE SEEN); Urine Bacteria 20-50 /HPF (NONE SEEN); Urine Culture Reflex Order REFLEXED
[2019-07-28 20:59] LABS: Urine Coarse Granular Casts 0-5 /LPF (NONE SEEN); Urine Mucus 4+ /HPF (NONE SEEN)
[2019-07-28] MEDS ORDERED: DIPHENHYDRAMINE 50 MG/ML VIAL ONE (22:29)
--- NOTE | 2019-07-28 22:29 | ER ---
Nurse's Notes [facility] Name: Gabriel Castillo Age: 79 yrs Sex: Male : 1940 Arrival Date: 07/28/2019 Time: 17:02 Bed 7 Private MD: Twin Atkinson E Diagnosis: Urinary tract infection, site not specified;Altered mental status, unspecified;Fever, unspecified Presentation: 07/28 17:11 Presenting complaint: states: Cough and fever that began this morning. Transition ss of care: patient was not received from another setting of care. Onset of symptoms was July 28, 2019. Risk Assessment: Do you want to hurt yourself or someone else? Patient reports no desire to harm self or others. Initial Sepsis Screen: Does the patient meet any 2 criteria? Altered Mental Status. Does the patient have a suspected source of infection? No. Patient's initial sepsis screen is negative. Care prior to arrival: None. 17:11 Method Of Arrival: Wheelchair ss 17:11 Acuity: DAVID 3 ss Triage Assessment: 17:15 General: Appears in no apparent distress. uncomfortable, Behavior is cooperative, bp appropriate for age, anxious. Pain: Denies pain. EENT: No deficits noted. Neuro: Level of Consciousness is awake, alert, PT TREMULOUS. Cardiovascular: No deficits noted. Respiratory: No deficits noted. GI: No signs and/or symptoms were reported involving the gastrointestinal system. : No signs and/or symptoms were reported regarding the genitourinary system. Derm: No deficits noted. Musculoskeletal: No deficits noted. Historical: - Allergies: 17:12 No Known Allergies; ss - PMHx: 17:12 Dementia; Parkinsons; High Cholesterol; Hypertension; tremors; Diabetes - NIDDM; ss - Immunization history:: Adult Immunizations up to date. - Social history:: Smoking status: Patient/guardian denies using tobacco. - Ebola Screening: : Patient denies exposure to infectious person Patient denies travel to an Ebola-affected area in the 21 days before illness onset. Screenin:22 Abuse screen: Denies threats or abuse. Denies injuries from another. Nutritional bp screening: No deficits noted. Tuberculosis screening: No symptoms or risk factors identified. Fall Risk No fall in past 12 months (0 pts). Secondary diagnosis (15 points) PARKINSON'S. Assessment: 17:15 General: SEE TRIAGE NOTE. bp 18:09 Reassessment: PT PENDING EVAL, VS STABLE. bp 18:40 Reassessment: XRAY AT B/S. bp 18:49 Reassessment: PT TO CT. bp 22:00 General: Appears in no apparent distress. Behavior is calm. Pain: Unable to use pain vc scale. Patient is disoriented. Patient is unresponsive. Neuro: Level of Consciousness is awake, confused, Oriented to person. Cardiovascular: Capillary refill < 3 seconds. Respiratory: Airway is patent Respiratory effort is even. GI: Abd is soft and non tender. : Urine is cloudy, orange in color. EENT: No deficits noted. Derm: scratches noted to scrotum and buttocks. Musculoskeletal: Range of motion: limited in all extremities. 22:12 Reassessment: Patient to CT via stretcher. vc 22:25 Reassessment: Patient back from CT, manometer technician states patient looks like he is breaking vc out with hives, provider notified, new orders as follows, Benadryl 25 mg IVP times one dose now. VORB. 23:00 Reassessment: Patient and/or family updated on plan of care and expected duration. Pain vc level reassessed. 07/29 00:00 Reassessment: Patient is laying with his eyes closed. No grimacing or moaning. Family vc no longer at bedside. 00:48 Reassessment: Attempted to call report to 4th floor, will try back. vc 01:19 Reassessment: Report given to PRETTY Ybarra. vc Vital Signs: 07/28 17:12 BP 114 / 50; Pulse 86; Resp 20; Temp 100.2(TE); Pulse Ox 98% ; Weight 64.86 kg; Height ss 5 ft. 6 in. (167.64 cm); 18:09 BP 106 / 54; Pulse 68; Resp 15; Pulse Ox 97% ; bp 18:48 BP 109 / 55; Pulse 80; Resp 19; Pulse Ox 100% ; bp 19:30 BP 117 / 50; Pulse 69; Resp 18; Pulse Ox 100% on R/A; vc 20:30 BP 110 / 51; Pulse 88; Resp 17; Temp 102.2(A); Pulse Ox 100% on R/A; vc 20:38 Temp 102.2(A); aj1 21:30 BP 112 / 54; Pulse 72; Resp 15; Pulse Ox 100% on R/A; vc 22:00 BP ??? / 0; vc 22:30 BP 101 / 57; Pulse 61; Resp 18; Pulse Ox 99% on R/A; vc 22:37 Temp 100.7(A); vc 07/29 00:15 BP 101 / 50; Pulse 61; Resp 16; Pulse Ox 99% on R/A; vc 01:00 BP 91 / 59; Pulse 65; Resp 18; Pulse Ox 98% on R/A; vc 07/28 17:12 Body Mass Index 23.08 (64.86 kg, 167.64 cm) ss ED Course: 07/28 17:02 Patient arrived in ED. mr 17:02 Twin Atkinson MD is Private Physician. mr 17:11 Triage completed. ss 17:12 Arm band placed on right wrist. ss 17:14 Mounika Wilkerson, RN is Primary Nurse. ph 17:22 Patient has correct armband on for positive identification. Bed in low position. Call bp light in reach. Side rails up X2. 17:32 EKG done, by ED staff. jb1 18:03 Portillo Lamar NP is PHCP. pm1 18:03 Genaro Briggs MD is Attending Physician. pm1 18:49 Nish Dimas, PRETTY is Primary Nurse. bp 18:59 CT Head Brain wo Cont In Process Unspecified. EDMS 18:59 Chest Single View XRAY In Process Unspecified. EDMS 20:30 Missed attempt(s): 20 gauge Bleeding controlled, band aid applied, catheter tip intact. oe 21:20 Radiology exam delayed due to IV insertion attempt and/or patient not having vm2 appropriate IV at this time. 21:56 Inserted saline lock: 20 gauge in right forearm, using aseptic technique. oe 22:28 China Nunez MD is Hospitalizing Provider. pm1 22:35 CT Abd/Pelvis - IV Contrast Only In Process Unspecified. EDMS 07/29 01:03 Patient admitted, IV remains in place. vc 01:03 No provider procedures requiring assistance completed. vc Administered Medications: 07/28 20:30 Drug: NS 0.9% 1000 ml Route: IV; Rate: 1000 ml; Site: left forearm; vc 22:00 Follow up: Response: No adverse reaction; IV Status: Completed infusion vc 20:50 CANCELLED (Physician Discretion): Tylenol 1000 mg PO once pm1 20:58 Drug: Tylenol Suppository 325 mg {Note: temp 102.2.} Route: [place]; vc 22:00 Follow up: BP ??? / 0; Response: No adverse reaction; Temperature is decreased vc 20:59 Drug: Tylenol Suppository 650 mg Route: [place]; vc 22:00 Follow up: Response: No adverse reaction; Temperature is decreased vc 22:25 Drug: Benadryl 25 mg Route: IVP; Site: right forearm; vc 23:47 Follow up: Response: No adverse reaction; Marked relief of symptoms vc 23:00 Drug: NS 0.9% 1000 ml Route: IV; Rate: 100 ml/hr; Site: right forearm; vc 23:25 Drug: Rocephin 1 grams Route: IV; Rate: calculated rate; Site: right forearm; vc 23:48 Follow up: Response: No adverse reaction vc 23:49 Follow up: Response: No adverse reaction; IV Status: Completed infusion vc Outcome: 22:28 Decision to Hospitalize by Provider. pm1 07/29 01:03 Admitted to Tele vc Condition: good Instructed on the need for admit. 01:42 Patient left the ED. fc Signatures: Dispatcher [employer] EDGabe Negro jb1 Flaquita Diaz RN RN 1 Sheila Barton mr RenaldoJesusita RN RN Roseline Ruelas RN RN Mounika Wilkerson RN RN Portillo Lamar, THALIA SCRAP DROP OPERATOR 1 Navin Bowling [facility] Nish Dimas RN RN bp Calcote, Vanessa, RN RN vc Corrections: (The following items were deleted from the chart) 07/28 18:50 18:49 Reassessment: XRAY AT B/S bp bp
--- NOTE | 2019-07-28 22:30 | EDPHYS ---
Physician Documentation [facility] Name: Gabriel Castillo Age: 79 yrs Sex: Male : 1940 Arrival Date: 07/28/2019 Time: 17:02 Bed 7 Private MD: Twin Atkinson E ED Physician Genaro Briggs HPI: 07/28 19:43 This 79 yrs old Male presents to ER via Wheelchair with complaints of Fever, pm1 Altered Mental Status. 19:43 The patient reports fever, not measured (subjective). Onset: The symptoms/episode pm1 began/occurred around noon, lunch time. Modifying factors: there are no obvious modifying factors. Associated signs and symptoms: Pertinent positives: cough, that is dry, Pertinent negatives: diarrhea, vomiting. Severity of symptoms: in the emergency department the symptoms are unchanged. The patient has not experienced similar symptoms in the past. Patient with a history of dementia and Parkinson's disease. Onset of cough and subjective fever this AM. Around lunch time, noon, the patient started acting more altered than his baseline dementia per family. Historical: - Allergies: 17:12 No Known Allergies; ss - PMHx: 17:12 Dementia; Parkinsons; High Cholesterol; Hypertension; tremors; Diabetes - NIDDM; ss - Immunization history:: Adult Immunizations up to date. - Social history:: Smoking status: Patient/guardian denies using tobacco. - Ebola Screening: : Patient denies exposure to infectious person Patient denies travel to an Ebola-affected area in the 21 days before illness onset. ROS: 21:11 Eyes: Negative for injury, pain, redness, and discharge, ENT: Negative for injury, pm1 pain, and discharge, Neck: Negative for injury, pain, and swelling, Cardiovascular: Negative for chest pain, palpitations, and edema. 21:11 Abdomen/GI: Negative for abdominal pain, nausea, vomiting, diarrhea, and constipation, Back: Negative for injury and pain, MS/Extremity: Negative for injury and deformity, Skin: Negative for injury, rash, and discoloration. 21:11 Constitutional: Positive for fever, poor PO intake. 21:11 Respiratory: Positive for cough, Negative for wheezing. 21:11 Neuro: Positive for altered mental status, baseline tremor. 21:11 Unable to obtain ROS due to altered mental status, baseline dementia, history obtained from family. Exam: 21:11 Head/Face: Normocephalic, atraumatic. Eyes: Pupils equal round and reactive to light, pm1 extra-ocular motions intact. Lids and lashes normal. Conjunctiva and sclera are non-icteric and not injected. Cornea within normal limits. Periorbital areas with no swelling, redness, or edema. ENT: Nares patent. No nasal discharge, no septal abnormalities noted. Tympanic membranes are normal and external auditory canals are clear. Oropharynx with no redness, swelling, or masses, exudates, or evidence of obstruction, uvula midline. Mucous membranes moist. Neck: Trachea midline, no thyromegaly or masses palpated, and no cervical lymphadenopathy. Supple, full range of motion without nuchal rigidity, or vertebral point tenderness. No Meningismus. Chest/axilla: Normal chest wall appearance and motion. Nontender with no deformity. No lesions are appreciated. Cardiovascular: Regular rate and rhythm with a normal S1 and S2. No gallops, murmurs, or rubs. Normal PMI, no JVD. No pulse deficits. Respiratory: Lungs have equal breath sounds bilaterally, clear to auscultation and percussion. No rales, rhonchi or wheezes noted. No increased work of breathing, no retractions or nasal flaring. Abdomen/GI: Soft, non-tender, with normal bowel sounds. No distension or tympany. No guarding or rebound. No evidence of tenderness throughout. Back: No spinal tenderness. No costovertebral tenderness. Full range of motion. Skin: Warm, dry with normal turgor. Normal color with no rashes, no lesions, and no evidence of cellulitis. MS/ Extremity: Pulses equal, no cyanosis. Neurovascular intact. Full, normal range of motion. 21:11 Constitutional: The patient appears awake, non-diaphoretic, non-toxic, well developed, well hydrated, well groomed, well nourished. 21:11 Neuro: Orientation: unable to test, the patient has a history of dementia, Motor: moves all fours. Vital Signs: 17:12 BP 114 / 50; Pulse 86; Resp 20; Temp 100.2(TE); Pulse Ox 98% ; Weight 64.86 kg; Height ss 5 ft. 6 in. (167.64 cm); 18:09 BP 106 / 54; Pulse 68; Resp 15; Pulse Ox 97% ; bp 18:48 BP 109 / 55; Pulse 80; Resp 19; Pulse Ox 100% ; bp 19:30 BP 117 / 50; Pulse 69; Resp 18; Pulse Ox 100% on R/A; vc 20:30 BP 110 / 51; Pulse 88; Resp 17; Temp 102.2(A); Pulse Ox 100% on R/A; vc 20:38 Temp 102.2(A); aj1 21:30 BP 112 / 54; Pulse 72; Resp 15; Pulse Ox 100% on R/A; vc 22:00 BP ??? / 0; vc 22:30 BP 101 / 57; Pulse 61; Resp 18; Pulse Ox 99% on R/A; vc 22:37 Temp 100.7(A); vc 07/29 00:15 BP 101 / 50; Pulse 61; Resp 16; Pulse Ox 99% on R/A; vc 01:00 BP 91 / 59; Pulse 65; Resp 18; Pulse Ox 98% on R/A; vc 07/28 17:12 Body Mass Index 23.08 (64.86 kg, 167.64 cm) ss MDM: 07/28 18:15 Patient medically screened. pm1 21:14 Data reviewed: vital signs. Data interpreted: Pulse oximetry: on room air is 100 %. pm1 Interpretation: normal. Counseling: I had a detailed discussion with the patient and/or guardian regarding: the historical points, exam findings, and any diagnostic results supporting the discharge/admit diagnosis, lab results, radiology results, the need for further work-up and treatment in the hospital. 07/28 18:35 Order name: Flu; Complete Time: 20:40 pm1 07/28 18:35 Order name: Basic Metabolic Panel; Complete Time: 20:46 pm1 07/28 18:35 Order name: Blood Culture Adult (2) pm1 07/28 18:35 Order name: CBC with Diff; Complete Time: 20:46 pm1 07/28 18:35 Order name: Ckmb; Complete Time: 20:46 pm1 07/28 18:35 Order name: CPK; Complete Time: 20:46 pm1 07/28 18:35 Order name: Lactate; Complete Time: 20:40 pm1 07/28 18:35 Order name: LFT's; Complete Time: 20:46 pm1 07/28 18:35 Order name: Lipase; Complete Time: 20:46 pm1 07/28 18:35 Order name: Procalcitonin; Complete Time: 20:59 pm1 07/28 18:35 Order name: Protime (+inr); Complete Time: 20:34 pm1 07/28 18:35 Order name: Ptt, Activated; Complete Time: 20:34 pm1 07/28 18:35 Order name: Troponin (emerg Dept Use Only); Complete Time: 20:46 pm1 07/28 18:35 Order name: CT Head Brain wo Cont; Complete Time: 19:25 pm1 07/28 18:35 Order name: Chest Single View XRAY; Complete Time: 19:25 pm1 07/28 18:35 Order name: Strep; Complete Time: 20:40 pm1 07/28 20:33 Order name: Urinalysis W/Microscopic; Complete Time: 21:03 EDMS 07/28 20:44 Order name: CBC Smear Scan; Complete Time: 20:46 EDMS 07/28 20:47 Order name: Throat Culture EDMS 07/28 21:00 Order name: Urine Culture EDMS 07/28 21:06 Order name: CT Abd/Pelvis - IV Contrast Only pm1 07/28 18:35 Order name: Accucheck; Complete Time: 22:29 pm1 07/28 18:35 Order name: Cardiac monitoring; Complete Time: 18:36 pm07/28 18:35 Order name: EKG - Nurse/Tech; Complete Time: 18:36 pm07/28 18:35 Order name: IV Saline Lock - Large Bore; Complete Time: 20:13 pm07/28 18:35 Order name: Labs collected and sent; Complete Time: 20:13 pm07/28 18:35 Order name: O2 Per Protocol; Complete Time: 18:36 pm07/28 18:35 Order name: O2 Sat Monitoring; Complete Time: 18:36 pm07/28 18:35 Order name: Urine Dipstick-Ancillary (obtain specimen); Complete Time: 22:29 pm1 07/28 18:35 Order name: Straight Cath - Urine; Complete Time: 20:23 pm1 Administered Medications: 20:30 Drug: NS 0.9% 1000 ml Route: IV; Rate: 1000 ml; Site: left forearm; vc 22:00 Follow up: Response: No adverse reaction; IV Status: Completed infusion vc 20:50 CANCELLED (Physician Discretion): Tylenol 1000 mg PO once pm1 20:58 Drug: Tylenol Suppository 325 mg {Note: temp 102.2.} Route: [place]; vc 22:00 Follow up: BP ??? / 0; Response: No adverse reaction; Temperature is decreased vc 20:59 Drug: Tylenol Suppository 650 mg Route: [place]; vc 22:00 Follow up: Response: No adverse reaction; Temperature is decreased vc 22:25 Drug: Benadryl 25 mg Route: IVP; Site: right forearm; vc 23:47 Follow up: Response: No adverse reaction; Marked relief of symptoms vc 23:00 Drug: NS 0.9% 1000 ml Route: IV; Rate: 100 ml/hr; Site: right forearm; vc 23:25 Drug: Rocephin 1 grams Route: IV; Rate: calculated rate; Site: right forearm; vc 23:48 Follow up: Response: No adverse reaction vc 23:49 Follow up: Response: No adverse reaction; IV Status: Completed infusion vc Disposition: 07/28/19 22:28 Hospitalization ordered by China Nunez for Inpatient Admission. Preliminary diagnosis are Urinary tract infection, site not specified, Altered mental status, unspecified, Fever, unspecified. - Bed requested for Telemetry/MedSurg (Inpatient). - Status is Inpatient Admission. fc - Condition is Stable. - Problem is new. - Symptoms have improved. UTI on Admission? Yes Addendum: 07/31/2019 06:46 Co-signature as Attending Physician, Genaro Briggs MD I agree with the assessment and k dr plan of care. Signatures: Dispatcher [employer] EDMS Genaro Briggs MD MD [facility] Jesusita Macario RN RN fc Smirch, Shelby, RN RN ss Portillo Lamar NP OIL SPRAYER pm1 Janet Mittal RN RN vc Corrections: (The following items were deleted from the chart) 07/28 20:33 18:37 UA MICROSCOPIC+U.LAB.BRZ ordered. EDMS EDMS 20:33 20:24 URINALYSIS+U.LAB.BRZ ordered. EDMS EDMS 20:50 20:41 Tylenol 1000 mg PO once ordered. pm1 pm1 07/29 00:21 07/28 22:28 Hospitalization Ordered by China Nunez MD for Inpatient Admission. fc Preliminary diagnosis is Urinary tract infection, site not specified; Altered mental status, unspecified; Fever, unspecified. Bed requested for Telemetry/MedSurg (Inpatient). Status is Inpatient Admission. Condition is Stable. Problem is new. Symptoms have improved. UTI on Admission? Yes. pm1 07/29 01:42 00:21 07/28/2019 22:28 Hospitalization Ordered by China Nunez MD for Inpatient fc Admission. Preliminary diagnosis is Urinary tract infection, site not specified; Altered mental status, unspecified; Fever, unspecified. Bed requested for Telemetry/MedSurg (Inpatient). Status is Inpatient Admission. Condition is Stable. Problem is new. Symptoms have improved. UTI on Admission? Yes. fc
[2019-07-28] MEDS ORDERED: CEFTRIAXONE/SWI 1gm 1 GM/10 ML SYR ONE (23:28)
[2019-07-29] MEDS ORDERED: MORPHINE 2 MG/ML SYR IV PRN (00:13)
[2019-07-29] MEDS ORDERED: ONDANSETRON 4 MG/2 ML VIAL IV PRN (00:13)
[2019-07-29] MEDS: NA CHLORIDE 0.9% 1,000 ML IV SCH ×3 (01:58→21:21)
[2019-07-29 02:03] VITALS: BMI 25.7
[2019-07-29 06:20] LABS: Absolute Lymphocytes (CBC) 0.5 K/uL (0.7-4.9); Basophils % 0.3 % (0-1.3); Hematocrit 24.3 % (39.6-49.0); Lymphocytes % 13.8 % (15.3-44.8); MPV 7.6 fL (7.6-11.3); RBC Red Blood Cell Count 2.89 M/uL (4.33-5.43)
--- NOTE | 2019-07-29 07:38 | P.HP ---
Certification for Inpatient Patient admitted to: Observation With expected LOS: <2 Midnights Patient will require the following post-hospital care: None Practitioner: I am a practitioner with admitting privileges, knowledge of patient current condition, hospital course, and medical plan of care. Services: Services provided to patient in accordance with Admission requirements found in Title 42 Section 412.3 of the Code of Federal Regulations Patient History Date of Service: 07/29/19 Reason for admission: UTI and toxic encephalopathy History of Present Illness: Patient is a 79-year-old gentleman who came to the hospital with confusion. Patient has a history of dementia and Parkinson's disease. Patient also has prior prostate cancer history. Patient was not acting like himself. According to the he has been congested and running fevers. He was more confused than he normally is. He able to interact with them someone appropriately, but today this was not happening so she brought him into the hospital. In the ER, he was found have a UTI. Patient is admitted for observation. Allergies iodine Allergy (Verified 07/29/19 02:15) Hives/Rash Home Medications: Amlodipine Besylate 5 mg PO DAILY 11/03/18 Aspirin 81 mg PO DAILY 11/03/18 Atorvastatin Calcium [Lipitor*] 20 mg PO BEDTIME 11/03/18 Donepezil HCl 10 mg PO BID 11/03/18 Memantine HCl 10 mg PO BID 11/03/18 Metformin HCl 500 mg PO DAILY 11/03/18 PARoxetine HCl [Paxil*] 10 mg PO DAILY 11/03/18 Pantoprazole Sodium 40 mg PO DAILY 11/03/18 Tamsulosin HCl 0.4 mg PO DAILY 11/03/18 glipiZIDE [Glucotrol*] 5 mg PO DAILY 11/03/18 hydroCHLOROthiazide [Hydrochlorothiazide] 50 mg PO DAILY 11/03/18 lisinopriL [Lisinopril] 40 mg PO DAILY 11/03/18 - Past Medical/Surgical History Diabetic: Yes -: HTN -: dementia -: alzheimers -: hyperlipidemia -: GERD -: BPH -: prostate ca Past Surgical History: Unable to obtain - Family History Mother Notes: in car accident when patient was young Father Notes: in car accident when patient was young - Social History Smoking Status: Never smoker Alcohol use: Yes CD- Drugs: No Caffeine use: Yes Place of Residence: Home Review of Systems 10-point ROS is otherwise unremarkable Physical Examination - Vital Signs Temperature: 99.2 F Blood Pressure: 125/66 Pulse: 61 Respirations: 17 Pulse Ox (%): 97 - Physical Exam General: Demented HEENT: Atraumatic, Normocephalic Neck: Supple, 2+ carotid pulse no bruit, JVD not distended, No Thyromegaly Respiratory: Clear to auscultation bilaterally, Normal air movement Cardiovascular: Regular rate/rhythm, Normal S1 S2 Gastrointestinal: Soft and benign, Non-distended, No tenderness, No masses, No rebound, No guarding - Studies Laboratory Data (last 24 hrs) 07/28/19 19:59: PT 13.5 H, INR 1.15, APTT 25.8 07/28/19 19:59: WBC 3.4 L, Hgb 8.1 L, Hct 24.6 L, Plt Count 119 L 07/28/19 19:59: Sodium 140, Potassium 3.9, BUN 19 H, Creatinine 1.46 H, Glucose 99, Total Bilirubin 0.7, AST 12 L, ALT 19, Alkaline Phosphatase 102, Lipase 143 Microbiology Data (last 24 hrs): 07/28/19 19:54 Nasopharnyx Influenza Type A Antigen Screen - Final 07/28/19 19:54 Nasopharnyx Influenza Type B Antigen Screen - Final 07/28/19 19:54 Throat Group A Streptococcus Rapid Screen - Final Assessment & Plan - Problems (Diagnosis) (1) UTI (urinary tract infection) Current Visit: Yes Status: Acute (2) Toxic encephalopathy Current Visit: Yes Status: Acute (3) Atrial fibrillation Current Visit: No Status: Acute (4) Generalized tonic-clonic seizure Current Visit: No Status: Acute (5) Alzheimer's dementia Current Visit: No Status: Chronic Qualifiers: (6) Diabetes Current Visit: No Status: Chronic Qualifiers: (7) HTN (hypertension) Current Visit: No Status: Chronic Qualifiers: Hypertension type: essential hypertension (8) Hyperlipidemia Current Visit: No Status: Chronic Qualifiers: - Plan Plan: 1. IV antibiotics and IV hydration 2. Monitor neuro status 3. Monitor electrolytes and hemodynamics 4. Pain control 5. Continue with medication for dementia 6. GI and DVT prophylaxis Discharge Plan: Home Plan to discharge in: 48 Hours - Advance Directives Does patient have a Living Will: No Does patient have a Durable POA for Healthcare: No - Code Status/Comfort Care Code Status Assessed: Yes Code Status: Full Code Critical Care: No Time Spent Managing PTS Care (In Minutes): 45
[2019-07-29] MEDS: ACETAMINOPHEN 500 MG TAB PO PRN (09:00)
[2019-07-29] MEDS: CEFTRIAXONE/SWI 1gm 1 GM/10 ML SYR IV SCH ×2 (09:00→21:42)
[2019-07-29] MEDS: MEMANTINE HCL 10 MG TABLET PO SCH ×2 (09:01→21:53)
[2019-07-29] MEDS: PARoxetine HCl 10 MG TAB PO SCH (09:01)
[2019-07-29] MEDS: ASPIRIN 81 MG CHEWABLE TABLET PO SCH (09:01)
[2019-07-29] MEDS: DONEPEZIL HCL 5 MG TAB PO SCH ×2 (09:02→21:53)
[2019-07-29] MEDS: TAMSULOSIN 0.4 MG SR CAP PO SCH (09:04)
--- NOTE | 2019-07-29 14:52 | EKG ---
Test Date: 2019-07-28 Test Time: 17:21:24 Logging Shovel Operator: PURVI MEASUREMENT RESULTS: Intervals: Rate: 71 [place]: 170 QRSD: 80 QT: 408 QTc: 443 [place]: P: 69 [place]: 170 QRS: 13 T: 31 INTERPRETIVE STATEMENTS: Normal sinus rhythm Normal ECG Compared to ECG 11/03/2018 15:27:08 Atrial fibrillation no longer present Electronically Signed On 07-29-19 14:50:25 CERTIFIED MASTER SAFE TECHNICIAN by Maxwell Meza
[2019-07-29] MEDS ORDERED: VANCOMYCIN 1 GM in NA CHLORIDE 0.9% 250 ML IVPB SCH (16:00)
[2019-07-29] MEDS ORDERED: ACETAMINOPHEN 650MG/RECT SUPP PR ONE (16:23)
[2019-07-29] MEDS: ALBUTEROL 2.5 MG/3 ML NEB SOL NEB SCH ×2 (16:30→21:58)
[2019-07-29] MEDS: VANCOMYCIN 1.25 GM in NA CHLORIDE 0.9% 250 ML IVPB SCH (16:30)
[2019-07-29] MEDS: IPRATROPIUM BROM 0.5MG/2.5ML NEB SCH ×2 (16:30→21:58)
[2019-07-29] MEDS: ATORVASTATIN 20 MG TAB PO SCH (21:42)
[2019-07-29] MEDS: levETIRAcetam 500 MG TAB PO SCH (21:53)
[2019-07-30] MEDS: ALBUTEROL 2.5 MG/3 ML NEB SOL NEB SCH ×4 (03:00→19:35)
[2019-07-30] MEDS: IPRATROPIUM BROM 0.5MG/2.5ML NEB SCH ×4 (03:00→19:35)
[2019-07-30 06:34] LABS: Absolute Lymphocytes (CBC) 0.1 K/uL (0.7-4.9); Basophils % 0.1 % (0-1.3); Lymphocytes % 3.5 % (15.3-44.8); MPV 7.6 fL (7.6-11.3); RBC Red Blood Cell Count 2.84 M/uL (4.33-5.43)
[2019-07-30 06:54] LABS: Albumin 2.7 g/dL (3.4-5.0); Bilirubin Total 0.5 mg/dL (0.2-1.0); Potassium 3.7 mmol/L (3.5-5.1); Protein, Total 5.7 g/dL (6.4-8.2)
[2019-07-30] MEDS: NA CHLORIDE 0.9% 1,000 ML IV SCH ×2 (07:00→14:33)
[2019-07-30 07:42] LABS: Blood Morphology Comment NOT SEEN (NOT SEEN); Platelet Estimate ADEQ; Urine White Blood Cell Casts OK
[2019-07-30] MEDS: ACETAMINOPHEN 500 MG TAB PO PRN (07:45)
[2019-07-30] MEDS ORDERED: HYDROCHLOROTHIAZIDE 50 MG PO SCH (09:00)
[2019-07-30] MEDS ORDERED: HOME MED 1 EA UNK (Lisinopril [Lisinopril] 40 MG) PO SCH (09:00)
[2019-07-30] MEDS ORDERED: lisinopriL 20 MG TAB PO SCH (09:00)
[2019-07-30] MEDS: CEFTRIAXONE/SWI 1gm 1 GM/10 ML SYR IV SCH ×2 (09:18→21:49)
[2019-07-30] MEDS: TAMSULOSIN 0.4 MG SR CAP PO SCH (09:20)
[2019-07-30] MEDS: ASPIRIN 81 MG CHEWABLE TABLET PO SCH (09:20)
[2019-07-30] MEDS: PARoxetine HCl 10 MG TAB PO SCH (09:20)
[2019-07-30] MEDS: DONEPEZIL HCL 5 MG TAB PO SCH ×2 (09:21→21:49)
[2019-07-30] MEDS: AMLODIPINE 5 MG TAB PO SCH (09:21)
[2019-07-30] MEDS: MEMANTINE HCL 10 MG TABLET PO SCH ×2 (09:21→21:49)
[2019-07-30] MEDS: hydroCHLOROthiazide 25 MG TAB PO SCH (09:24)
[2019-07-30] MEDS: glipiZIDE 5 MG TAB PO SCH (09:27)
--- NOTE | 2019-07-30 11:39 | RAD REPORT ---
EXAM DESCRIPTION: RAD - Chest Single View - 07/29/2019 10:48 pm CLINICAL HISTORY: shortness of breath, O2 support Chest pain. COMPARISON: Chest Single View dated 07/28/2019; Chest Single View dated 11/03/2018 FINDINGS: Portable technique limits examination quality. Mild interstitial pulmonary edema is seen. The heart is mildly enlarged in size. No displaced fractur es. IMPRESSION: Mild CHF versus volume overload pattern.
[2019-07-30] MEDS ORDERED: PIPER/TAZO/NS 3.375gm 3.375 GM/100 ML BAG IVPB SCH (13:00)
--- NOTE | 2019-07-30 13:01 | PN ---
History Of Present Illness: Currently, patient lying in bed. He continued to be shaky due to his Parkinson's. He had low-grade temperature this morning. at the bedside. She decided to change his code status to a do not resuscitate. Review of Systems: Otherwise unobtainable from the patient. Physical Examination: Vital Signs: Currently, blood pressure is 115/53, respiratory rate 22, pulse 89 , temperature 101.8. General: Patient is alert but confused. Does not look in any distress. He is with significant tremor. HEENT: Atraumatic, normocephalic. PERRLA. Oral mucosa is moist. Neck: Supple. No JVD. No bruits. Chest: Clear to auscultation. Good air entry. Heart: Regular rate and rhythm. S1, S2 normal. No gallop or murmur. Abdomen: Soft, nontender. No masses. No hepatosplenomegaly. Positive bowel sounds. Extremities: No clubbing, no cyanosis, or edema. Neuro: Deferred. Patient is not able to follow commands. He has significant tremor. Laboratory Data: CBC showed normal except white blood cells 3.5, hemoglobin 7.8 , platelets at 115, left shift, neutrophil of 87.2. Chemistry was normal except for chloride 108, BUN of 19, GFR of 54, calcium 7.7, lactic acid 2.6, Precal at 2.88. Chest x-ray repeated today is pending. Assessment And Plan: 1. A 79-year-old with bacteremia. Blood culture showed gram-positive cocci in clusters, 1/2 bottles. Patient already covered with vancomycin yesterday. He continue to have a low-grade temperature. If he spikes again, I will probably add Zosyn to his antibiotic. He is also on ceftriaxone. Againone of blood cultures only grew G+ cocci, so there is a possibility this is contamination, but at the same time, I am worried because the patient continued to have fever as well as he had elevated lactic acid as well as procalcitonin, so if he spikes fever this afternoon, I will add Zosyn to his antibiotic. 2. Urosepsis. Urine culture showed klebsiella, which is sensitive to ceftriaxone. Continue patient on ceftriaxone as before. 3. Renal insufficiency, much better today. Continue IV fluids. 4. Anemia. We will check stool occult blood. I will check the iron profile. I will repeat H and H at noon. If continued to go down, will transfuse the patient 1 unit of blood. 5. Parkinson disease, stable. 6. Dementia, severe at baseline. Patient on Namenda as well as Aricept. 7. BPH. Patient on Flomax. 8. Diabetes mellitus. Continue glipizide. Glucose in the range of 99 to 136. 9. Hypertension. Patient on lisinopril, well controlled. 10. Deep vein thrombosis prophylaxis. I will start him on Lovenox. 11. Code status changed to DNR, DNI. Patient has severe dementia. MT/MODL Voice ID: [id number] Report ID: [id number] CRISSY
[2019-07-30] MEDS: PIPER/TAZO/NS 3.375gm 3.375 GM/100 ML BAG IVPB SCH ×2 (14:33→15:54)
[2019-07-30] MEDS ORDERED: ENOXAPARIN 30 MG/0.3 ML SQ SCH (17:00)
[2019-07-30] MEDS ORDERED: NA CHLORIDE 0.9% 250 ML ONE ×2 (17:13→22:37)
[2019-07-30] MEDS ORDERED: ALBUMIN HUMAN 25% 100 ML IV ONE (19:41)
--- NOTE | 2019-07-30 21:27 | RAD REPORT ---
EXAM DESCRIPTION: RAD - Chest Single View - 07/30/2019 9:22 pm CLINICAL HISTORY: crackles Chest pain. COMPARISON: Chest Single View dated 07/29/2019; Chest Single View dated 07/28/2019; Chest Single View da teodoro 11/03/2018 FINDINGS: Portable technique limits examination quality. Mild interstitial pulmonary edema seen. Small pleural effusions. The heart is moderately enlarged. No displaced fractures. IMPRESSION: Mild CHF.
[2019-07-30] MEDS: ATORVASTATIN 20 MG TAB PO SCH (21:49)
[2019-07-30] MEDS: levETIRAcetam 500 MG TAB PO SCH (21:49)
[2019-07-30 21:56] LABS: Ferritin 46.1 ng/mL (26-388)
[2019-07-31] MEDS: ALBUTEROL 2.5 MG/3 ML NEB SOL NEB SCH ×4 (01:53→19:30)
[2019-07-31] MEDS: IPRATROPIUM BROM 0.5MG/2.5ML NEB SCH ×4 (01:53→19:30)
[2019-07-31] MEDS: PIPER/TAZO/NS 3.375gm 3.375 GM/100 ML BAG IVPB SCH ×2 (02:40→08:00)
[2019-07-31 05:00] LABS: Absolute Lymphocytes (CBC) 0.4 K/uL (0.7-4.9); Basophils % 0.2 % (0-1.3); Hematocrit 26.2 % (39.6-49.0); Lymphocytes % 10.7 % (15.3-44.8); MPV 7.7 fL (7.6-11.3)
[2019-07-31 05:01] LABS: Protime INR 1.19
[2019-07-31 05:16] LABS: Magnesium 2.1 mg/dL (1.8-2.4); Phosphorus 2.9 mg/dL (2.5-4.9); Thyroid Stimulating Hormone 2.65 uIU/mL (0.360-3.740)
[2019-07-31] MEDS: VANCOMYCIN 1.25 GM in NA CHLORIDE 0.9% 250 ML IVPB SCH (05:30)
[2019-07-31] MEDS: TAMSULOSIN 0.4 MG SR CAP PO SCH (09:00)
[2019-07-31] MEDS: AMLODIPINE 5 MG TAB PO SCH (09:00)
[2019-07-31] MEDS: hydroCHLOROthiazide 25 MG TAB PO SCH (09:00)
[2019-07-31] MEDS: lisinopriL 20 MG TAB PO SCH (09:00)
[2019-07-31] MEDS: PARoxetine HCl 10 MG TAB PO SCH (09:57)
[2019-07-31] MEDS: DONEPEZIL HCL 5 MG TAB PO SCH ×2 (09:58→21:22)
[2019-07-31] MEDS: glipiZIDE 5 MG TAB PO SCH (09:58)
[2019-07-31] MEDS: CEFTRIAXONE/SWI 1gm 1 GM/10 ML SYR IV SCH (09:58)
[2019-07-31] MEDS: ASPIRIN 81 MG CHEWABLE TABLET PO SCH (09:58)
[2019-07-31] MEDS: MEMANTINE HCL 10 MG TABLET PO SCH ×2 (09:58→21:22)
[2019-07-31] MEDS ORDERED: KCL 20 MEQ/100 mL IVPB 20 MEQ/100 ML BAG IV SCH (10:00)
[2019-07-31] MEDS ORDERED: NA CHLORIDE 0.9% 1,000 ML IV SCH (10:00)
--- NOTE | 2019-07-31 13:00 | P.PN ---
Subjective Date of Service: 07/31/19 Primary Care Provider: PCP Chief Complaint: UTI and toxic encephalopathy Subjective: Improving Family stated that he is more responsive today. Less altered from yesterday. Patient continues to have mild hypotension. Respiratory status stable at this time. Review of Systems Eyes: Unremarkable ENT: Unremarkable Respiratory: Shortness of Breath Cardiovascular: Unremarkable Gastrointestinal: Unremarkable Musculoskeletal: Unremarkable Integumentary: Unremarkable Neurological: As per HPI Lymphatics: Unremarkable Physical Examination - Vital Signs Temperature: 98.0 F Blood Pressure: 91/45 Pulse: 69 Respirations: 18 Pulse Ox (%): 96 - Physical Exam General: Oriented x2, Cooperative, Other (Responsive to verbal stimulus) HEENT: PERRLA, Mucous membr. moist/pink, EOMI Neck: Supple, 2+ carotid pulse no bruit, JVD not distended Respiratory: Crackles/rales (In bibasilar crackles present), Rhonchi/gurgles ( Mild rhonchi bilaterally present) Cardiovascular: No edema, Normal pulses, Regular rate/rhythm, No gallops, No rubs, No murmurs Capillary refill: <2 Seconds Gastrointestinal: Normal bowel sounds, Hypoactive, Soft and benign, No ascites, No tenderness Musculoskeletal: No clubbing, No swelling, No contractures, No erythema, No tenderness, No warmth Integumentary: No rashes, No breakdown, No significant lesion, No tenderness/ swelling, No erythema, No warmth, No cyanosis Neurological: Normal speech, Normal tone, Sensation intact, Cranial nerves 3-12 intact, Dementia Lymphatics: No axilla or inguinal lymphadenopathy - Studies Microbiology Data (last 24 hrs): 07/28/19 19:34 Blood - Blood Aerobic Blood Culture - Final Staph Hominis 07/28/19 19:34 Blood - Blood Gram Stain - Final 07/28/19 19:34 Blood - Blood Anaerobic Blood Culture - Final Staphylococcus Hominis 07/28/19 19:34 Blood - Blood Gram Stain - Final 07/28/19 19:54 Throat Culture & Sensitivity - Final NORMAL UPPER RESPIRATORY ZEYNEP GROWN. 07/28/19 Unknown Clean Catch Urine [place] Count - Final >100,000 CFU/ML. 07/28/19 Unknown Clean Catch Urine - Final Klebsiella Pneumoniae Medications List Reviewed: Yes Assessment And Plan - Current Problems (Diagnosis) (1) Sepsis Current Visit: Yes Status: Acute Qualifiers: Sepsis type: sepsis due to unspecified organism Sepsis acute organ dysfunction status: with acute organ dysfunction Severe sepsis acute organ dysfunction type: encephalopathy Severe sepsis shock status: with septic shock Qualified Code(s): A41.9 - Sepsis, unspecified organism; R65.21 - Severe sepsis with septic shock; G93.40 - Encephalopathy, unspecified (2) Sepsis associated hypotension Current Visit: Yes Status: Acute (3) Toxic encephalopathy Current Visit: Yes Status: Acute (4) UTI (urinary tract infection) Current Visit: Yes Status: Acute Qualifiers: Urinary tract infection type: acute cystitis Hematuria presence: without hematuria Qualified Code(s): N30.00 - Acute cystitis without hematuria (5) Alzheimer's dementia Current Visit: No Status: Chronic Qualifiers: (6) Diabetes Current Visit: No Status: Chronic Qualifiers: - Plan Patient has mild fluid volume overload status. Will restrict oral fluids to 1500 mL per day. Will continue to monitor respiratory status. Patient is on oxygen nasal cannula at this time. Lasix and other blood pressure medicines have been held at this time due to mild hypotension. Antibiotics were adjusted secondary to sensitivity report. Electrolytes and renal function will continue to be monitored. Anemia will be monitored. Will check today at 6:00 p.m. to ensure stabilization of hemoglobin. Infectious Disease has been consulted as well. Patient was taken off of any heparin products secondary to occult blood in stool. Patient was placed on SCDs. Patient expected to be here for another 2-3 days to ensure stabilization as patient does show signs of sepsis with septic shock. Lactate will continue to be trended amongst his other labs. Discharge Plan: Home Plan to discharge in: Greater than 2 days - Code Status/Comfort Care Code Status Assessed: Yes Critical Care: No Time Spent Managing PTS Care (In Minutes): 60
[2019-07-31] MEDS: CEFAZOLIN/SWI 1gm 1 GM/10 ML SYR IV SCH ×2 (13:08→18:06)
--- NOTE | 2019-07-31 13:58 | RAD REPORT ---
EXAM DESCRIPTION: CT - Abdomen Pelvis W Contrast - 07/28/2019 11:03 pm CLINICAL HISTORY: Abdominal pain. UTI. COMPARISON: None. TECHNIQUE: CT scan of the abdomen and pelvis was performed with IV contrast. This exam was performed according to our departmental dose-optimization program, which includes automated exposure control, adjustment of the mA and/or kV according to patient size and/or use of iterative reconstruction techn ique. FINDINGS: The lung bases are clear. No pleural or pericardial effusions. There is a small hiatal her becca. The gallbladder is contracted, limiting evaluation. The liver, spleen, pancreas, adrenal glands, and kidneys are unremarkable without hydronephrosis or urinary stones. Diffuse inflammatory strandin g surrounding the urinary bladder. There are scattered colonic diverticula without surrounding inflammatory changes. No small bowel obst ruction. The appendix is normal. No intraperitoneal free fluid or free air is seen. The aorta is norm al caliber and contains atherosclerotic calcifications. No acute bony findings are seen. There is no body wall hernia. IMPRESSION: 1. Findings consistent with acute cystitis. Correlate with urinalysis. 2. No hydronephrosis or obstructing urinary stones are seen. Electronically signed by: Patrick Guillory MD 07/28/2019 10:50 PM LABORATORY TECHNOLOGY TEACHER Due to temporary technical issues with the PACS/Fluency reporting system, reports are being signed by the in house radiologist as a courtesy to ensure prompt reporting. The interpreting radiologist is f ully responsible for the content of the report.
[2019-07-31] MEDS ORDERED: KCL 10 MEQ/100 ML IVPB 10 MEQ/100 ML BAG IV ONE (17:36)
--- NOTE | 2019-07-31 18:33 | CON ---
History Of Present Illness: Patient is a 79-year-old male coming in with confusion, fever and not ab le to eat. Patient lives with his . He has significant history of dementia, Parkinson disease, and prostate cancer, for which he has received radiation therapy in the past. Patient is not a good historian as unable to communicate at this time. is by the bedside. Most of the history was ob tained through and medical records. Past Medical History: Hypertension, hypercholesteremia, dementia, Parkinson's, history of prostate c ancer, diabetes mellitus, congestive heart failure. Social History: Nonsmoker, nondrinker. Family History: Noncontributory. Medications: Vancomycin and cefazolin. See MAR for other medication. Allergies: IODINE. Review of Systems: Unable to obtain. Physical Examination: General: This is a 79-year-old male, lying in bed, in mild respiratory distress, on nasal cannula ox ygen. Vital Signs: Temperature 98, T-max of 101.8 on admission, pulse 70, respirations 18, blood pressure 91/45. HEENT: Unremarkable. Neck: Supple. Lungs: Basal crackles. Heart: S1 and S2 are regular. Abdomen: Soft, nontender. Bowel sounds present. Extremities: No edema. Laboratory Data: WBC 4, hemoglobin 8.7 post transfusion, platelets are 104. Chemistry shows sodium 104, potassium 3, chloride 106, bicarb 26, BUN 23, creatinine 1.4, GFR is 47, glucose 78. Lactic aci d 3.3, down to 1.4. Procalcitonin is 2.88. Micro data is growing Klebsiella pneumoniae in urine and Staphylococcus hominis in blood, sensitive t o cefazolin. Chest x-ray shows mild interstitial pulmonary edema with small pleural effusions with impression of c ongestive heart failure. Assessment And Plan: A 79-year-old male coming in with altered mental status with bacteremia and uri nary tract infection, currently being treated with vancomycin and cefazolin. We will recommend to co ntinue cefazolin. Repeat blood cultures to be negative and after cultures are negative, to continue antibiotic for 14 days after that. The patient with also diabetic, congestive heart failure, and brian al insufficiency. We will recommend for monitoring for pressure wounds by offloading and using wedge pillows. Also continue respiratory care. Consider transferring patient to long-term acute care. W filippo will follow the patient as needed. NF/MODL Voice ID: [id number] Report ID: [id number]
[2019-07-31] MEDS: levETIRAcetam 500 MG TAB PO SCH (21:22)
[2019-07-31] MEDS: ATORVASTATIN 20 MG TAB PO SCH (21:22)
[2019-08-01] MEDS: CEFAZOLIN/SWI 1gm 1 GM/10 ML SYR IV SCH ×3 (00:37→18:42)
[2019-08-01] MEDS: IPRATROPIUM BROM 0.5MG/2.5ML NEB SCH ×4 (01:30→20:30)
[2019-08-01] MEDS: ALBUTEROL 2.5 MG/3 ML NEB SOL NEB SCH ×4 (01:30→20:30)
[2019-08-01 04:21] LABS: Absolute Lymphocytes (CBC) 0.3 K/uL (0.7-4.9); Basophils % 0.2 % (0-1.3); Hematocrit 25.8 % (39.6-49.0); Lymphocytes % 10.6 % (15.3-44.8); MPV 7.7 fL (7.6-11.3); RBC Red Blood Cell Count 3.18 M/uL (4.33-5.43)
[2019-08-01 04:45] LABS: Potassium 3.3 mmol/L (3.5-5.1)
[2019-08-01] MEDS ORDERED: POTASSIUM 25 MEQ EFFERV TAB PO ONE (05:07)
[2019-08-01 05:16] LABS: Blood Morphology Comment NOTED (NOT SEEN); Ovalocytes 2+; Platelet Estimate DECR; Urine White Blood Cell Casts OK
[2019-08-01] MEDS: glipiZIDE 5 MG TAB PO SCH (08:00)
[2019-08-01] MEDS: lisinopriL 20 MG TAB PO SCH (09:00)
[2019-08-01] MEDS: AMLODIPINE 5 MG TAB PO SCH (09:00)
[2019-08-01] MEDS: DONEPEZIL HCL 5 MG TAB PO SCH ×2 (09:00→20:46)
[2019-08-01] MEDS: hydroCHLOROthiazide 25 MG TAB PO SCH (09:00)
--- NOTE | 2019-08-01 16:43 | EKG ---
Test Date: 2018-07-30 Test Time: 13:18:27 Fur Tinter: URSULA MEASUREMENT RESULTS: Intervals: Rate: 78 FL: QRSD: 76 QT: 390 QTc: 444 [place]: P: FL: QRS: 7 T: -7 INTERPRETIVE STATEMENTS: Atrial fibrillation Nonspecific ST and T wave abnormality, probably digitalis effect Abnormal ECG Cardioserver Error - Incorrect date on EKG This EKG was performed on 07-30-2019 No previous ECG available for comparison Electronically Signed On 08-01-19 16:41:14 SIGNALING DESIGN ENGINEER by Maxwell Meza
--- NOTE | 2019-08-01 17:23 | PN ---
Subjective: Patient is lying in bed, while getting feed by his . Denies any other problems. No new complaints. Objective: Vital Signs: Temperature 99, pulse 86, respirations 18, blood pressure 98/55. Lungs: Basal crackles. Heart: S1, S2. Regular. Abdomen: Soft, nontender. Bowel sounds present. Extremities: No edema. Laboratory Data: Reviewed. Assessment And Plan: Altered mental status, improving; bacteremia; urinary tract infection, secondar y to Klebsiella pneumoniae and Staphylococcus hominis bacteremia. Continue current antibiotic cefazo tonio. We will follow the patient as needed. NF/MODL Voice ID: [id number] Report ID: [id number]
[2019-08-01] MEDS: MEMANTINE HCL 10 MG TABLET PO SCH ×2 (18:09→20:46)
[2019-08-01] MEDS: TAMSULOSIN 0.4 MG SR CAP PO SCH (18:09)
[2019-08-01] MEDS: ASPIRIN 81 MG CHEWABLE TABLET PO SCH (18:09)
[2019-08-01] MEDS: PARoxetine HCl 10 MG TAB PO SCH (18:10)
--- NOTE | 2019-08-01 18:31 | PN ---
Date of Progress Note: 08/01/2019 Subjective: Patient was seen and examined, chart reviewed and case discussed with RN. Family at the bedside. Treatment plan explained. All questions answered. Patient is still confused, however, th at is his baseline, not eating a whole lot. Medications: List reviewed. Code Status: Full. Physical Examination: Vital Signs: Temperature 99, heart rate 86, blood pressure 98/55, respirations 18, O2 saturation 99% on 2 L via nasal cannula. General: Awake, alert, oriented to self only, elderly male, confused, somewhat ill-appearing. CV: S1, S2, irregularly irregular. Peripheral pulses present. Respiratory: Diminished breath sounds at the bases. No wheezing or stridor. No use of accessory mu scles. Gastrointestinal: Abdomen is soft, nontender, nondistended. Positive bowel sounds. Extremities: No clubbing, cyanosis, or edema. Neurologic: Nonfocal. Moves all 4 extremities. Laboratory Data: Sodium 141, potassium 3.3, chloride 108, CO2 of 26, BUN 22, creatinine 1.32, glucos e 64, lactate 1, calcium 7.7. WBC 2.8, H and H 8.7, 25.8, platelets 108, neutrophils 78%. Cultures; urine culture growing out Klebsiella pneumonia. Blood cultures growing out Staphylococcus hominis. Stool occult blood is positive. Assessment And Plan: A 79-year-old male with: 1.Sepsis secondary to urinary tract infection and bacteremia with acute organ dysfunction, encephalo saji and acute kidney injury, improving. Patient is now leukopenic. Lactate is normal. Patient is still somewhat hypotensive. 2.Sepsis associated hypotension. Continue with IV fluids, monitor. 3.Toxic encephalopathy secondary to above. Still not back to baseline. 4.Acute cystitis without hematuria secondary to Klebsiella. Continue with IV antibiotics. 5.Bacteremia secondary to Staphylococcus hominis. Continue with IV antibiotics. Appreciate Dr. Len hudson's input. 6.Alzheimer dementia. 7.Hypokalemia. We will replace and monitor. 8.Diabetes mellitus type 2 with hyperglycemia, non-insulin requiring. We will continue to monitor b lood glucose levels and continue with sliding scale insulin. 9.Acute kidney injury. Creatinine is improving. We will continue to monitor. 10.Atrial fibrillation. No previous documented history of atrial fibrillation, likely has chronic a trial fibrillation that is paroxysmal. Patient is a poor candidate for oral anticoagulation due to h is fall risk and advanced dementia. 11.Essential hypertension, currently hypotensive. Hold blood pressure medications for now. 12.Mixed hyperlipidemia. 13.History of enlarged prostate and prostate cancer. Patient continues to follow up with outpatient Urology to monitor. 14.Deep vein thrombosis prophylaxis addressed. Plan: Likely discharge in the next 24-48 hours depending on clinical response. Follow up with ID re garding antibiotic recommendations. /SANDRA Voice ID: [id number] Report ID: [id number]
[2019-08-01] MEDS: ATORVASTATIN 20 MG TAB PO SCH (20:46)
[2019-08-01] MEDS: levETIRAcetam 500 MG TAB PO SCH (20:46)
[2019-08-02] MEDS: CEFAZOLIN/SWI 1gm 1 GM/10 ML SYR IV SCH ×3 (00:05→16:40)
[2019-08-02] MEDS: ALBUTEROL 2.5 MG/3 ML NEB SOL NEB SCH ×4 (02:00→19:57)
[2019-08-02] MEDS: IPRATROPIUM BROM 0.5MG/2.5ML NEB SCH ×4 (02:00→19:57)
[2019-08-02] MEDS: glipiZIDE 5 MG TAB PO SCH (08:00)
[2019-08-02] MEDS: lisinopriL 20 MG TAB PO SCH (08:18)
[2019-08-02] MEDS: AMLODIPINE 5 MG TAB PO SCH (08:19)
[2019-08-02] MEDS: hydroCHLOROthiazide 25 MG TAB PO SCH (08:20)
[2019-08-02] MEDS: DONEPEZIL HCL 5 MG TAB PO SCH ×2 (08:20→21:55)
[2019-08-02] MEDS: MEMANTINE HCL 10 MG TABLET PO SCH ×2 (08:20→21:55)
[2019-08-02] MEDS ORDERED: NA CHLORIDE 0.9% 1,000 ML ONE (11:31)
[2019-08-02] MEDS ORDERED: propofoL 200 MG/20 ML VIAL IV ONE (11:47)
--- NOTE | 2019-08-02 13:41 | ENDO RPT ---
[address], [address] EGD PROCEDURE REPORT EXAM DATE: 08/02/2019 PATIENT NAME: Gabriel Castillo MR#: [id number] BIRTHDATE: 1940 ATTENDING: [address] STATUS: inpatient EXTENSION SPECIALIST: Jovita Barton RN and Tisha Bartholomew INDICATIONS: The patient is a 79 yr old Male here for an EGD due to anemia, hgb 7.3, heme + stool PROCEDURE PERFORMED: EGD with biopsy MEDICATIONS: Per Anesthesia. TOPICAL ANESTHETIC: none CONSENT: The patient understands the risks and benefits of the procedure and understands that these risks include, but are not limited to: sedation, allergic reaction, infection, perforation and/or bleeding. Alternative means of evaluation and treatment include, among others: physical exam, x-rays, and/or surgical intervention. The patient elects to proceed with this endoscopic procedure. DESCRIPTION OF PROCEDURE: During intra-op preparation period all mechanical medical equipment was checked for proper function. Hand hygiene and appropriate measures for infection prevention was taken. Procedure, possible complications, and alternatives including but not limited to the possibility of bleeding, perforation, tear, infection, sepsis, need for surgery, need for blood transfusion, and anesthesia related complications were explained to the patient. After the risks, benefits and alternatives of the procedure were thoroughly explained, Informed consent was verified, confirmed and timeout was successfully executed by the treatment team. The patient was placed in the left lateral position. The patient was anesthetized with topical anesthesia. Through the anesthetized oropharyngeal area, the scope was passed without any difficulty. The [id number] ([id number]) endoscope was introduced through the mouth and advanced to the third portion of the duodenum. Retroflexed views revealed a large hiatal hernia. The gastroscope was then slowly withdrawn and removed. A large hiatal hernia was found Multiple erosions were found in the body of the stomach. Multiple biopsies were obtained and sent to pathology. An ulcer was found in the body of the stomach. ADVERSE EVENTS: There were no complications. IMPRESSIONS: 1. Large hiatal hernia 2. Multiple (4) linear 4-12 mm erosions in the body of the stomach, along diaphragmatic edge of hiatal hernia -> Amos's erosions 3. 3 mm linear ulcer with dark heme in the body of the stomach, along diaphragmatic edge of hiatal hernia RECOMMENDATIONS: 1. await biopsy results 2. acid suppression therapy REPEAT EXAM: [address] eSigned: [address] 08/02/2019 1:41 PM cc: CPT CODES: ICD9 CODES: PATIENT NAME: Gabriel Castillo MR#: [id number]
[2019-08-02] MEDS: TAMSULOSIN 0.4 MG SR CAP PO SCH (16:40)
[2019-08-02] MEDS: PARoxetine HCl 10 MG TAB PO SCH (16:40)
[2019-08-02] MEDS: ASPIRIN 81 MG CHEWABLE TABLET PO SCH (16:40)
--- NOTE | 2019-08-02 19:29 | PN ---
Date of Progress Note: 08/02/2019 Subjective: The patient seen and examined. Chart reviewed and case discussed with RN. The patient went down for EGD today. at the bedside. Case discussed with Dr. Guerin and Case Management. Treatment plan explained. All questions answered. Medications: List reviewed. Physical Examination: Vital Signs: Temperature 97.1, heart rate 58, blood pressure 106/57, respirations 16, O2 97% on 2 L via nasal cannula. General: Asleep but arousable, elderly male, somewhat ill-appearing, lethargic. CV: S1, S2, irregularly irregular. Peripheral pulses present. Respiratory: Diminished breath sounds at the bases, otherwise moving air well bilateral apices. No wheezing or stridor. Gastrointestinal: Abdomen is soft, nontender, nondistended. Positive bowel sounds. Extremities: No clubbing, cyanosis, or edema. Neurologic: Nonfocal. Laboratory Data: Blood glucose levels ranging between 101 and 107. Cultures, urine culture growing out klebsiella and blood cultures growing out Staph hominis, 3/4 bottles, sensitive to cefazolin. Assessment: A 79-year-old male with. 1. Sepsis secondary to urinary tract infection and bacteremia with acute organ dysfunction. Patient was encephalopathic and has acute kidney injury. Sepsis is improving. Patient is currently leukopenic. We will repeat CBC. Lactate is normalized. Blood pressure is still somewhat on the low side. We will continue to monitor. 2. Hypotension secondary to sepsis with shock, improved with IV fluids. 3. Toxic encephalopathy secondary to above. According to , he is still not back at baseline. I explained to her that this will take some time given his baseline dementia. Patient is, however, answering questions appropriately. Appetite still not back to normal. 4. Acute cystitis without hematuria secondary to klebsiella. We will continue IV antibiotics. 5. Bacteremia secondary to Staphylococcus hominis. Continue with cefazolin. Appreciate Dr. Guerin's input. He recommends 2 weeks of IV antibiotics. 6. Hypokalemia, replace and monitor. 7. Gastric ulcer 3 mm with heme. We will start on IV PPI. Appreciate Dr. Rousseau's input. Patient had EGD today, also found to have Amos's erosions in the body of the stomach and also has large hiatal hernia. 8. Diabetes mellitus type 2 with hyperglycemia, non-insulin requiring. We will monitor blood glucose levels. Continue sliding scale insulin. 9. Acute kidney injury. Creatinine is normalized. We will continue to monitor. Avoid NSAIDs. 10. Atrial fibrillation, chronic. Poor candidate for oral anticoagulation due to fall risk, dementia, and now with heme-positive ulcers found on EGD. Patient also received blood transfusions. 11. Acute anemia secondary to blood loss, status post 2 units of PRBCs secondary to GI bleed. 12. Upper gastrointestinal bleed. Continue PPI. 13. Essential hypertension, currently hypotensive. 14. Mixed hyperlipidemia, stable. 15. History of enlarged prostate and prostate cancer. Continue follow up with Urology as an outpatient. 16. Deep venous thrombosis prophylaxis with SCDs. No chemical anticoagulation due to ulcerations and anemia, GI bleed. 17. Disposition. Refer to halfway facility for long-term IV antibiotics. Obtain PICC line. GLENN Voice ID: [id number] Report ID: [id number] CRISSY
[2019-08-02] MEDS: levETIRAcetam 500 MG TAB PO SCH (21:55)
[2019-08-02] MEDS: ATORVASTATIN 20 MG TAB PO SCH (21:55)
[2019-08-03] MEDS: ALBUTEROL 2.5 MG/3 ML NEB SOL NEB SCH ×4 (01:52→19:40)
[2019-08-03] MEDS: CEFAZOLIN/SWI 1gm 1 GM/10 ML SYR IV SCH ×3 (01:52→16:42)
[2019-08-03] MEDS: IPRATROPIUM BROM 0.5MG/2.5ML NEB SCH ×4 (01:52→19:40)
[2019-08-03 04:36] LABS: Absolute Lymphocytes (CBC) 0.6 K/uL (0.7-4.9); Basophils % 0.4 % (0-1.3); Hematocrit 28.9 % (39.6-49.0); Lymphocytes % 23.7 % (15.3-44.8); MPV 7.2 fL (7.6-11.3); RBC Red Blood Cell Count 3.48 M/uL (4.33-5.43)
[2019-08-03 04:59] LABS: Magnesium 2.3 mg/dL (1.8-2.4); Potassium 4.2 mmol/L (3.5-5.1)
[2019-08-03] MEDS: hydroCHLOROthiazide 25 MG TAB PO SCH (09:00)
[2019-08-03] MEDS: lisinopriL 20 MG TAB PO SCH ×2 (09:00)
[2019-08-03] MEDS: AMLODIPINE 5 MG TAB PO SCH ×2 (09:00)
[2019-08-03] MEDS: TAMSULOSIN 0.4 MG SR CAP PO SCH (09:46)
[2019-08-03] MEDS: PANTOPRAZOLE 40 MG INJ IVP SCH (09:46)
[2019-08-03] MEDS: PARoxetine HCl 10 MG TAB PO SCH (09:47)
[2019-08-03] MEDS: MEMANTINE HCL 10 MG TABLET PO SCH ×2 (09:47→22:48)
[2019-08-03] MEDS: DONEPEZIL HCL 5 MG TAB PO SCH ×2 (09:47→22:48)
[2019-08-03] MEDS: glipiZIDE 5 MG TAB PO SCH (09:47)
[2019-08-03] MEDS: ASPIRIN 81 MG CHEWABLE TABLET PO SCH (09:52)
--- NOTE | 2019-08-03 13:11 | P.PN ---
Subjective Date of Service: 08/03/19 Primary Care Provider: PCP Chief Complaint: UTI and toxic encephalopathy, sepsis, anemia Subjective: Improving (Eating lunch enthusiatically. He feels better.) Review of Systems Unremarkable Physical Examination - Vital Signs Temperature: 97.1 F Blood Pressure: 109/63 Pulse: 65 Respirations: 18 Pulse Ox (%): 98 - Physical Exam General: Alert, In no apparent distress, Oriented x3, Cooperative HEENT: Atraumatic, Normocephalic, PERRLA, EOMI Neck: Supple Respiratory: Normal air movement Cardiovascular: Normal pulses, Regular rate/rhythm Gastrointestinal: Soft and benign, No tenderness, No rebound, No guarding Neurological: Normal speech - Studies Medications List Reviewed: Yes Assessment And Plan - Current Problems (Diagnosis) (1) Anemia Current Visit: Yes Status: Acute (2) Sepsis associated hypotension Current Visit: Yes Status: Acute (3) Toxic encephalopathy Current Visit: Yes Status: Acute (4) UTI (urinary tract infection) Current Visit: Yes Status: Acute Qualifiers: Urinary tract infection type: acute cystitis Hematuria presence: without hematuria Qualified Code(s): N30.00 - Acute cystitis without hematuria (5) Atrial fibrillation Current Visit: No Status: Acute (6) Alzheimer's dementia Current Visit: No Status: Chronic Qualifiers: (7) Diabetes Current Visit: No Status: Chronic Qualifiers: (8) HTN (hypertension) Current Visit: No Status: Chronic Qualifiers: Hypertension type: essential hypertension (9) Hyperlipidemia Current Visit: No Status: Chronic Qualifiers: (10) Gastric erosions Current Visit: Yes Status: Acute - Plan REC: 1) continue PPI bid for 2 months and then to qAM dosing. 2) GI clinic f/u
--- NOTE | 2019-08-03 17:47 | PN ---
Date of Progress Note: 08/03/2019 Subjective: Patient is seen and examined. Chart reviewed and case discussed with RN, Dr. Rousseau, and Dr. Guerin. Patient is doing significantly better, much more awake and alert, tolerating his diet. Had endoscopy done yesterday, found to have ulcers. Medications: List reviewed. Physical Examination: Vital Signs: Temperature 97.3, heart rate 63, blood pressure 131/80, respirations 20, O2 99% on 2 L via nasal cannula. General: Awake, alert, oriented x3, not in any acute distress. Elderly male. CV: S1, S2. Irregularly irregular. Peripheral pulses present. Respiratory: Moving air well bilaterally. No wheezing or stridor. Gastrointestinal: Abdomen is soft, nontender, nondistended. Positive bowel sounds. Extremities: No clubbing, cyanosis, edema. Neurologic: Nonfocal. Laboratory Data: WBC 2.5, H and H 9.6 and 28.9, platelets 104, neutrophils 58% . Sodium 144, potassium 4.2, chloride 110, CO2 30, BUN 14, creatinine 1.05, glucose 105, calcium 8, magnesium 2.3. Urine culture, Klebsiella pneumoniae. Blood cultures, Staph hominis. Assessment: 79-year-old male with: 1. Sepsis secondary to urinary tract infection and bacteremia with acute organ dysfunction, improved, still leukopenic, improving. We will continue with IV antibiotics. 2. Hypotension secondary to sepsis with shock, improved with IV fluids. We will continue to monitor. 3. Toxic encephalopathy secondary to above, now back to baseline. 4. Acute cystitis without hematuria secondary to Klebsiella pneumonia. Continue with IV antibiotics with cefazolin. 5. Bacteremia secondary to Staphylococcus hominis. Continue cefazolin for a total of [address] Guerin's input. 6. Acute blood loss anemia, secondary to gastrointestinal bleed, status post 2 units of PRBCs. 8. Upper gastrointestinal bleed. Continue PPI 9. Gastric ulcer 3 mm with heme. Continue IV PPI. Appreciate Dr. Rousseau's input. 10. Acute kidney injury. Creatinine normalized. We will continue to monitor. No NSAIDs. 11. Diabetes mellitus type 2 with hyperglycemia, non-insulin requiring. We will continue to monitor blood glucose levels. 12. Atrial fibrillation, chronic. Poor candidate for oral anticoagulation due to dementia, ulcers, bleeding, fall risk. We will continue to monitor. Continue with rate control. 13. Large hiatal hernia. 14. Essential hypertension. Blood pressure has been on the low side. Continue to monitor. 15. Mixed hyperlipidemia, stable. 16. Enlarged prostate and history of prostate cancer. Follow up with Urology as outpatient. 17. Deep venous thrombosis prophylaxis. SCDs. No chemical anticoagulation due to bleeding ulcers. Disposition: Transfer to snf facility for long-term IV antibiotics once accepted. Awaiting PICC line placement and referral. GLENN Voice ID: [id number] Report ID: [id number] [email or web address]
[2019-08-03] MEDS: ATORVASTATIN 20 MG TAB PO SCH (22:48)
[2019-08-03] MEDS: levETIRAcetam 500 MG TAB PO SCH (22:48)
[2019-08-04] MEDS: IPRATROPIUM BROM 0.5MG/2.5ML NEB SCH ×4 (02:50→20:30)
[2019-08-04] MEDS: ALBUTEROL 2.5 MG/3 ML NEB SOL NEB SCH ×4 (02:50→20:30)
[2019-08-04] MEDS: PANTOPRAZOLE 40 MG INJ IVP SCH (09:56)
[2019-08-04] MEDS: CEFAZOLIN/SWI 1gm 1 GM/10 ML SYR IV SCH ×3 (09:56→16:27)
[2019-08-04] MEDS: AMLODIPINE 5 MG TAB PO SCH (09:57)
[2019-08-04] MEDS: MEMANTINE HCL 10 MG TABLET PO SCH ×2 (09:57→21:26)
[2019-08-04] MEDS: glipiZIDE 5 MG TAB PO SCH (09:57)
[2019-08-04] MEDS: PARoxetine HCl 10 MG TAB PO SCH (09:57)
[2019-08-04] MEDS: lisinopriL 20 MG TAB PO SCH (09:57)
[2019-08-04] MEDS: ASPIRIN 81 MG CHEWABLE TABLET PO SCH (09:58)
[2019-08-04] MEDS: hydroCHLOROthiazide 25 MG TAB PO SCH (09:58)
[2019-08-04] MEDS: TAMSULOSIN 0.4 MG SR CAP PO SCH (09:58)
[2019-08-04] MEDS: DONEPEZIL HCL 5 MG TAB PO SCH ×2 (09:58→21:26)
[2019-08-04] MEDS: SODIUM CHLORIDE 0.9% 10ML INJ IV PRN (09:59)
--- NOTE | 2019-08-04 12:28 | RAD REPORT ---
EXAM DESCRIPTION: RAD - Chest Single View - 08/04/2019 2:26 am CLINICAL HISTORY: 79 years Male, PICC Placement COMPARISON: None TECHNIQUE: Single portable x-ray view of the chest performed on 08/04/2019 2:20 AM FINDINGS: The lung volumes are low. There is patchy perihilar opacification likely reflecting vascul ar congestion. There is volume loss in the lung bases which may be due to a combination of pleural fl uid, edema and atelectasis. There is no evidence of a pneumothorax. The cardiac silhouette is mildly prominent. The mediastinal contours are normal. No acute osseous abnormality is identified. No focal soft tissue abnormalities are seen. Lines and tubes: The tip of the left upper extremity PICC line catheter projects over the region of the cavoatrial junction. IMPRESSION: 1. Patchy perihilar opacification likely reflecting vascular congestion with bilateral p leural effusions. 2. The tip of the left upper extremity PICC line catheter overlies the region of the cavoatrial junct ion. Electronically signed by: Elly Esposito DO 08/04/2019 2:37 AM REAL ESTATE OFFICE SUPERVISOR Due to temporary technical issues with the PACS/Fluency reporting system, reports are being signed by the in house radiologist as a courtesy to ensure prompt reporting. The interpreting radiologist is f ully responsible for the content of the report.
--- NOTE | 2019-08-04 15:03 | ECHO ---
HEIGHT: 5 ft 6 in WEIGHT: 159 lb 0 oz DATE OF STUDY: 08/04/[address]: Ramón Jenkins MD 2-DIMENSIONAL: YES M.MODE: YES DOPPLER: YES COLOR FLOW: YES TDS: NO PORTABLE: NO DEFINITY: NO BUBBLE STUDY: NO DIAGNOSIS: BACTEREMIA, RULE OUT VEGETATION CARDIAC HISTORY: CATHERIZATION: NO SURGERY: NO PROSTHETIC VALVE: NO PACEMAKER: NO MEASUREMENTS (cm) DIASTOLIC (NORMALS) SYSTOLIC (NORMALS) IVSd 0.9 (0.6-1.2) LA Diam 4.3 (1.9-4.0) LVEF 64% LVIDd 4.8 (3.5-5.7) LVIDs 3.1 (2.0-3.5) %FS 35% LVPWd 1.0 (0.6-1.2) Ao Diam 3.0 (2.0-3.7) 2 DIMENSIONAL ASSESSMENT: RIGHT ATRIUM: DILATED LEFT ATRIUM: DILATED RIGHT VENTRICLE: NORMAL LEFT VENTRICLE: NORMAL TRICUSPID VALVE: NORMAL MITRAL VALVE: NORMAL PULMONIC VALVE: NORMAL AORTIC VALVE: NORMAL PERICARDIAL EFFUSION: NONE AORTIC ROOT: NORMAL LEFT VENTRICULAR WALL MOTION: NORMAL DOPPLER/COLOR FLOW: MILD MITRAL AND TRICUSPID REGURGITATION. ESTIMATED RIGHT VENTRICULAR SYSTOLIC PRESSURE 45 mmHg. MILD PULMONARY HYPERTENSION. COMMENTS: NORMAL LEFT VENTRICULAR EJECTION FRACTION. DILATED LEFT AND RIGHT ATRIUM. MILD MITRAL AND TRICUSPID REGURGITATION. MILD PULMONARY HYPERTENSION. TECHNOLOGIST: Connor NICHOLS
--- NOTE | 2019-08-04 16:39 | PN ---
Subjective: Patient lying in bed. No new acute event this morning. Better today to verbal stimuli. Objective: Vital Signs: Temperature 97.8, pulse 64, respirations 18, blood pressure 120/67. Lungs: Basal crackles. Heart: S1, S2. Regular. Abdomen: Soft, nontender. Bowel sounds present. Extremities: No edema. No wounds noted on the back. Laboratory Data: WBC 2.5, hemoglobin 9.6, platelets 104. Chemistry shows sodium 144, potassium 4.2, chloride 110, bicarb 30, BUN 14, creatinine 1, glucose is 105. Urine culture from 07/28, Klebsiella pneumonia, blood cultures Staph hominis, currently being treated with cefazolin. Assessment And Plan: Pancytopenia in a 79-year-old with urinary tract infection and Staphylococcus h ominis bacteremia. Continue antibiotic cefazolin. Repeat cultures after 2 weeks. We will follow e patient as needed. NF/MODL Voice ID: [id number] Report ID: [id number]
--- NOTE | 2019-08-04 17:18 | PN ---
Date of Progress Note: 08/04/2019 Subjective: Patient seen and examined. Chart reviewed and case discussed with RN. Patient is doing significantly better, tolerating his diet. Family at the bedside. Treatment plan explained. All questions answered. Medications: Reviewed. Physical Examination: Vital Signs: Temperature 97.8, heart rate 64, blood pressure 120/67, respirations 18, O2 99% on 2 L via nasal cannula. General: Awake, alert, oriented x2, not in any acute distress, elderly male. CV: S1, S2. Irregularly irregular. Peripheral pulses present. Respiratory: Moving air well bilaterally. No wheezing or stridor. Gastrointestinal: Abdomen is soft, nontender, nondistended. Positive bowel sounds. Extremities: No clubbing, cyanosis, or edema. Neurologic: Nonfocal. Patient does have tremor. Cultures: Urine culture positive for Klebsiella pneumoniae. Blood cultures positive for Staph hominis. Assessment: 79-year-old male with: 1. Sepsis secondary to urinary tract infection and bacteremia with acute organ dysfunction, improving. 2. Hypotension secondary to sepsis and shock, improved. Continue to monitor. 3. Toxic encephalopathy secondary to above, now back to his baseline. 4. Bacteremia secondary to Staphylococcus hominis. We will continue cefazolin for total of 2 weeks. We will obtain echocardiogram to rule out any sort of vegetation. 5. Acute cystitis without hematuria secondary to Klebsiella pneumoniae. Continue with IV antibiotics. 6. Gastric ulcer 3 mm. Continue with IV PPI. Appreciate GI, Dr. Rousseau's input. 7. Acute blood loss anemia secondary to gastrointestinal bleed, status post 2 units of PRBCs. We will continue to monitor H and H and transfuse as needed. 8. Upper gastrointestinal bleed. Continue PPI, status post scope. 9. Acute kidney injury, normalized. 10. Atrial fibrillation, chronic. Poor candidate for oral anticoagulation due to dementia, ulcers, and fall risk. Continue rate control. 11. Large hiatal hernia. 12. Diabetes mellitus type 2 with hyperglycemia. We will continue with sliding scale insulin. Patient does not require insulin at home. Continue to monitor blood glucose levels. 13. Essential hypertension. Blood pressure still on the low side. We will continue to monitor. Hold medications. 14. Mixed hyperlipidemia, stable. 15. Enlarged prostate with history of prostate cancer. Follow up outpatient with Urology. 16. Deep venous thrombosis prophylaxis. SCDs. No chemical anticoagulation due to bleeding ulcer. Plan: Discharge to SNF once accepted. PICC line has been placed for IV antibiotic therapy. Appreciate Dr. Guerin's input as well. /SANDRA Voice ID: [id number] Report ID: [id number] [email or web address]
[2019-08-04] MEDS: levETIRAcetam 500 MG TAB PO SCH (21:26)
[2019-08-04] MEDS: ATORVASTATIN 20 MG TAB PO SCH (21:26)
[2019-08-05] MEDS: CEFAZOLIN/SWI 1gm 1 GM/10 ML SYR IV SCH ×4 (00:56→23:58)
[2019-08-05] MEDS: ALBUTEROL 2.5 MG/3 ML NEB SOL NEB SCH ×4 (01:20→19:40)
[2019-08-05] MEDS: IPRATROPIUM BROM 0.5MG/2.5ML NEB SCH ×4 (01:20→19:40)
[2019-08-05 06:18] LABS: Absolute Lymphocytes (CBC) 0.6 K/uL (0.7-4.9); Basophils % 0.2 % (0-1.3); Hematocrit 25.7 % (39.6-49.0); Lymphocytes % 18.4 % (15.3-44.8); MPV 7.4 fL (7.6-11.3); RBC Red Blood Cell Count 3.11 M/uL (4.33-5.43)
[2019-08-05 06:30] LABS: Potassium 3.5 mmol/L (3.5-5.1)
[2019-08-05] MEDS: lisinopriL 20 MG TAB PO SCH (08:16)
[2019-08-05] MEDS: DONEPEZIL HCL 5 MG TAB PO SCH ×2 (08:16→21:01)
[2019-08-05] MEDS: glipiZIDE 5 MG TAB PO SCH (08:17)
[2019-08-05] MEDS: AMLODIPINE 5 MG TAB PO SCH (08:17)
[2019-08-05] MEDS: TAMSULOSIN 0.4 MG SR CAP PO SCH (08:18)
[2019-08-05] MEDS: hydroCHLOROthiazide 25 MG TAB PO SCH (08:18)
[2019-08-05] MEDS: ASPIRIN 81 MG CHEWABLE TABLET PO SCH (08:18)
[2019-08-05] MEDS: PANTOPRAZOLE 40 MG INJ IVP SCH (08:18)
[2019-08-05] MEDS: MEMANTINE HCL 10 MG TABLET PO SCH ×2 (08:18→21:01)
[2019-08-05] MEDS: PARoxetine HCl 10 MG TAB PO SCH (08:19)
--- NOTE | 2019-08-05 16:08 | PN ---
Date of Progress Note: 08/05/2019 Subjective: Patient is seen and examined. Chart reviewed and case discussed with RN. Patient is do ing well. No acute events overnight. Medications: List reviewed. Physical Examination: Vital Signs: Temperature 97.5, heart rate 56, blood pressure 135/59, respirations 18, O2 sat 98% on room air. General: Awake, alert, and oriented x2. Elderly male, stable. CV: S1, S2, irregularly irregular. Peripheral pulses present. Respiratory: Moving air well bilaterally. No wheezing or stridor. Gastrointestinal: Abdomen is soft, nontender, nondistended. Positive bowel sounds. Extremities: No clubbing, cyanosis, or edema. Neurologic: Nonfocal. Laboratory Data: Sodium 144, potassium 3.5, chloride 110, CO2 of 30, BUN 22, creatinine 1.11, glucos e 110, calcium 7.6. WBC 3.5, H and H of 8.6 and 25.7, platelets 124, neutrophils 69%. Blood culture s positive for Staphylococcus hominis and urine culture positive for Klebsiella pneumoniae. Echocard iogram, normal left ventricular EF 64%, dilated left and right atrium, mild mitral and tricuspid regu rg, mild pulmonary hypertension. Assessment And Plan: A 79-year-old male with: 1.Sepsis secondary to urinary tract infection and bacteremia with acute organ dysfunction, resolving . 2.Hypertension improved secondary to sepsis and shock. 3.Toxic encephalopathy, now back to baseline. 4.Bacteremia secondary to Staphylococcus hominis. Continue cefazolin for a total of 2 weeks. Echo did not show any abnormal vegetation on valves. 5.Acute cystitis without hematuria secondary to Klebsiella pneumonia. Continue IV antibiotics. 6.Gastric ulcer, 3 mm. Continue PPI. Appreciate GI input. 7.Acute blood loss anemia secondary to gastrointestinal bleed, status post 2 units of PRBCs. Contin ue to monitor and transfuse as needed. 8.Upper gastrointestinal bleed. We will continue PPI, status post EGD. 9.Acute kidney injury, normalized. 10.Atrial fibrillation, chronic, permanent, not a good candidate for anticoagulation. 11.Large hiatal hernia. 12.Diabetes mellitus type 2 with hyperglycemia. We will continue sliding scale insulin. Monitor bl ood glucose levels. 13.Essential hypertension. Blood pressure currently on the low to normal side. Home medications fo r now. 14.Mixed hyperlipidemia, stable. 15.Enlarged prostate. Patient has history of prostate cancer. We will follow up with Urology as ou tpatient. 16.Deep venous thrombosis prophylaxis, SCDs. No chemical anticoagulation due to bleed. Disposition: Discharged to SNF with long-term IV antibiotics once accepted. /SANDRA Voice ID: [id number] Report ID: [id number]
[2019-08-05] MEDS: levETIRAcetam 500 MG TAB PO SCH (21:01)
[2019-08-05] MEDS: ATORVASTATIN 20 MG TAB PO SCH (21:02)
[2019-08-06] MEDS: IPRATROPIUM BROM 0.5MG/2.5ML NEB SCH ×4 (01:15→20:20)
[2019-08-06] MEDS: ALBUTEROL 2.5 MG/3 ML NEB SOL NEB SCH ×4 (01:15→20:20)
[2019-08-06] MEDS: CEFAZOLIN/SWI 1gm 1 GM/10 ML SYR IV SCH ×2 (07:47→16:36)
[2019-08-06] MEDS: AMLODIPINE 5 MG TAB PO SCH (07:48)
[2019-08-06] MEDS: hydroCHLOROthiazide 25 MG TAB PO SCH (07:48)
[2019-08-06] MEDS: DONEPEZIL HCL 5 MG TAB PO SCH ×2 (07:48→20:49)
[2019-08-06] MEDS: ASPIRIN 81 MG CHEWABLE TABLET PO SCH (07:48)
[2019-08-06] MEDS: TAMSULOSIN 0.4 MG SR CAP PO SCH (07:48)
[2019-08-06] MEDS: MEMANTINE HCL 10 MG TABLET PO SCH ×2 (07:49→20:49)
[2019-08-06] MEDS: lisinopriL 20 MG TAB PO SCH (07:49)
[2019-08-06] MEDS: PARoxetine HCl 10 MG TAB PO SCH (07:49)
[2019-08-06] MEDS: glipiZIDE 5 MG TAB PO SCH (07:49)
[2019-08-06] MEDS: PANTOPRAZOLE 40 MG INJ IVP SCH (07:51)
[2019-08-06] MEDS ORDERED: WATER FOR INJ,STERILE 10 ML ONE (07:53)
--- NOTE | 2019-08-06 11:17 | P.PN ---
Subjective Date of Service: 08/06/19 Primary Care Provider: PCP Chief Complaint: UTI and toxic encephalopathy, sepsis, anemia Subjective: Improving (He is without complaint. EGD revealed a large hiatal hernia 5 cm, and Amos erosions and one Amos ulcer at diaphragmatic edge of hiatal hernia.) Review of Systems 10-point ROS is otherwise unremarkable General: Weakness Neurological: Other (dementia) Physical Examination - Vital Signs Temperature: 97.2 F Blood Pressure: 129/68 Pulse: 58 Respirations: 18 Pulse Ox (%): 100 - Physical Exam General: Alert, In no apparent distress, Cooperative HEENT: Atraumatic, Normocephalic, PERRLA, EOMI Neck: Supple Respiratory: Normal air movement Gastrointestinal: Soft and benign, No tenderness, No rebound, No guarding - Studies Medications List Reviewed: Yes Assessment And Plan - Current Problems (Diagnosis) (1) Anemia Current Visit: Yes Status: Acute (2) Sepsis associated hypotension Current Visit: Yes Status: Acute (3) Toxic encephalopathy Current Visit: Yes Status: Acute (4) UTI (urinary tract infection) Current Visit: Yes Status: Acute Qualifiers: Urinary tract infection type: acute cystitis Hematuria presence: without hematuria Qualified Code(s): N30.00 - Acute cystitis without hematuria (5) Atrial fibrillation Current Visit: No Status: Acute (6) Alzheimer's dementia Current Visit: No Status: Chronic Qualifiers: (7) Diabetes Current Visit: No Status: Chronic Qualifiers: (8) HTN (hypertension) Current Visit: No Status: Chronic Qualifiers: Hypertension type: essential hypertension (9) Hyperlipidemia Current Visit: No Status: Chronic Qualifiers: (10) Gastric erosions Current Visit: Yes Status: Acute - Plan REC: 1) continue PPI bid for 2 months and then to qAM dosing. 2) GI clinic f/u
--- NOTE | 2019-08-06 16:11 | PN ---
Date of Progress Note: 08/06/2019 Subjective: Patient is seen and examined. Chart reviewed and case discussed with RN. No acute even ts overnight. Medications: List reviewed. Physical Examination: Vital Signs: Temperature 97.2, heart rate 58, blood pressure 129/68, respirations 18. O2 100% on 2 L via nasal cannula. General: Awake, alert, oriented x2. No acute distress, elderly male. CVS: S1, S2, irregularly irregular. Peripheral pulses present. Respiratory: Somewhat diminished breath sounds on the bases, otherwise no wheezing or stridor. Gastrointestinal: Abdomen is soft, nontender, nondistended. Positive bowel sounds. Extremities: No clubbing, cyanosis, or edema. Neurologic: Nonfocal. The patient does have a resting tremor. Laboratory Data: Sodium 144, potassium 3.5, chloride 110, CO2 of 30. Blood cultures growing out Sta ph hominis and urine culture growing out klebsiella. Assessment: A 79-year-old male with: 1.Sepsis secondary to urinary tract infection and bacteremia with acute organ dysfunction, resolving . 2.Hypotension, improved, was secondary to sepsis and shock. 3.Toxic encephalopathy, now back to baseline. Patient does have dementia. 4.Bacteremia secondary to Staphylococcus hominis. Continue with IV antibiotics for a total of 2 wee ks. 5.Acute cystitis without hematuria secondary to Klebsiella pneumoniae, treated with IV antibiotics. 6.Gastric ulcer, 3 mm. Continue PPI. Appreciate GI input. 7.Acute blood loss anemia secondary to gastrointestinal bleed, status post 2 units of PRBCs. We vince l continue to monitor. Transfuse as needed. 8.Upper gastrointestinal bleed. Continue PPI, status post EGD. 9.Acute kidney injury, normalized. We will continue to monitor. Avoid NSAIDs. 10.Atrial fibrillation, chronic, permanent, not a good candidate for anticoagulation secondary to hi s dementia, fall risk, and recent GI bleed. 11.Large hiatal hernia. 12.Diabetes mellitus type 2 with hyperglycemia. Continue sliding scale insulin and monitor blood gl ucose levels. 13.Essential hypertension, stable. 14.Mixed hyperlipidemia, stable. 15.Enlarged prostate and history of prostate cancer. The patient to follow up with Urology. 16.Alzheimer dementia, moderate. No behavioral disturbance. 17.Essential tremor. 18.Deep venous thrombosis prophylaxis with SCDs. No chemical anticoagulation due to GI bleed. Plan: For transfer to [facility] once accepted for long-term IV antibiotics. /SANDRA Voice ID: [id number] Report ID: [id number]
[2019-08-06] MEDS: ACETAMINOPHEN 500 MG TAB PO PRN (16:42)
--- NOTE | 2019-08-06 16:56 | CON ---
Date of Consultation: 08/02/2019 Reason For Consultation: Anemia with hemoglobin of 7.3 and sepsis. History Of Present Illness: The patient is a 79-year-old male with history of hypertension, diabetes, hyperlipidemia, and also Alzheimer disease. Patient presented to hospital with urinary tr act infection and toxic encephalopathy. Patient found to have a low hemoglobin of 7.3, had a colonos copy in 2019 with the really small colon polyp noted. EGD in 2018 with esophageal stricture and dila tation as per family at outside facility, thought to be possibly a [facility] in [place], [place]. Past Medical History: Significant for diabetes, hypertension, hyperlipidemia, Alzheimer disease, gas tric reflux disease, benign prostatic hypertrophy, prostate cancer and seizure. Medications: Amlodipine, aspirin, Lipitor, benazepril, memantine, metformin, Paxil, Protonix, Tamsul osin, glipizide, hydrochlorothiazide, lisinopril. Allergies: IODINE. Social History: , 1 daughter. No tobacco. No alcohol. Family History: Father , unknown reasons. Mother in a motor vehicle accident. Review of Systems: Patient had worsening mental status, but no hematochezia, hematemesis, coffee-ground emesis, hematuri a, dysuria, polydipsia, chest pain, short of breath, seizure, syncope, muscle aches, joint aches, yoli kaches, lower extremity edema. No nausea, vomiting, fever, chills, night sweats, melena. No depress ion anxiety. Physical Examination: Vital Signs: The patient is 5 foot 6 inch, 159 pounds. BMI of 26 kg/sq m, temperature of 98.4 degre es Fahrenheit, pulse 64, respirations 16, blood pressure 140/66, O2 saturation 100%. General: He is an elderly male, lying in bed, in no acute distress. HEENT: Normocephalic, atraumatic. Anicteric. Pupils are equal, round, and reactive to light. EOMs intact. Oropharynx is clear. Neck: Supple. No masses. Respirations: Clear to auscultation bilaterally. Cardiac: Regular rate and rhythm. Gastrointestinal: Positive bowel sounds. Soft, nontender, nondistended. No hepatosplenomegaly. Extremities: No clubbing, cyanosis, or edema. 2+ pulses. Neuro: Alert, oriented possibly to 1, able to move all extremities. Sensation appears to be intact. Laboratory Data: The patient had a white count yesterday of 2.8, hemoglobin of 8.7, which was down t o 7.3 on the 5th. Hematocrit the next day of 26, MCV of 81, platelet count of a 108, polys of 78%, l ymphocytes 11%, monocytes 11%, PT of 13.9, INR of 1.2. Yesterday patient had sodium 141, potassium 3 .3, chloride 108, bicarb 26, BUN of 22, creatinine of 1.3, glucose 64, calcium is 7.7, TSH of 2.6. I gely on the 5th, the iron saturation of 4.2%, ferritin was normal at 46. Imaging: CT abdomen and pelvis: Findings consistent with acute cystitis, otherwise negative. Impression: 1.Anemia. Hemoglobin 7.3 with heme-positive stool noted as iron saturation noted at 4.6 consistent with iron-deficiency anemia. Colonoscopy in 2019 revealed only a very small polyp as per family, at the GI Center and also had EGD in 2018, revealed esophageal stricture status post dilatation as per robbie weathers. 2.History of sepsis with blood cultures positive for Klebsiella and Staphylococcus hominis. 3.History of hypertension, diabetes, hyperlipidemia, and Alzheimer disease. Recommendation: 1.Continue IV fluids, IV antibiotics. 2.Continue serial H and Hs, and transfuse p.r.n. 3.PPI therapy. 4.EGD. 5.Keep patient n.p.o. CLEMENTINA/SANDRA Voice ID: [id number] Report ID: [id number]
[2019-08-06] MEDS: levETIRAcetam 500 MG TAB PO SCH (20:49)
[2019-08-06] MEDS: ATORVASTATIN 20 MG TAB PO SCH (20:50)
[2019-08-07] MEDS: CEFAZOLIN/SWI 1gm 1 GM/10 ML SYR IV SCH ×3 (01:11→16:02)
[2019-08-07] MEDS: IPRATROPIUM BROM 0.5MG/2.5ML NEB SCH ×4 (02:35→20:13)
[2019-08-07] MEDS: ALBUTEROL 2.5 MG/3 ML NEB SOL NEB SCH ×4 (02:35→20:13)
[2019-08-07] MEDS ORDERED: WATER FOR INJ,STERILE 10 ML ONE (07:23)
[2019-08-07] MEDS: lisinopriL 20 MG TAB PO SCH (08:11)
[2019-08-07] MEDS: PARoxetine HCl 10 MG TAB PO SCH (08:12)
[2019-08-07] MEDS: hydroCHLOROthiazide 25 MG TAB PO SCH (08:12)
[2019-08-07] MEDS: ASPIRIN 81 MG CHEWABLE TABLET PO SCH (08:12)
[2019-08-07] MEDS: AMLODIPINE 5 MG TAB PO SCH (08:12)
[2019-08-07] MEDS: MEMANTINE HCL 10 MG TABLET PO SCH ×2 (08:13→21:03)
[2019-08-07] MEDS: DONEPEZIL HCL 5 MG TAB PO SCH ×2 (08:13→21:03)
[2019-08-07] MEDS: glipiZIDE 5 MG TAB PO SCH (08:13)
[2019-08-07] MEDS: TAMSULOSIN 0.4 MG SR CAP PO SCH (08:13)
[2019-08-07] MEDS: PANTOPRAZOLE 40 MG INJ IVP SCH (08:13)
--- NOTE | 2019-08-07 10:22 | EKG ---
Test Date: 2019-08-07 Test Time: 08:48:24 Single End Sewer: REGINALD MEASUREMENT RESULTS: Intervals: Rate: 65 NM: 166 QRSD: 76 QT: 458 QTc: 476 [place]: P: 87 NM: 166 QRS: 17 T: 30 INTERPRETIVE STATEMENTS: Sinus rhythm with premature atrial complexes Nonspecific ST and T wave abnormality Prolonged QT Abnormal ECG Compared to ECG 08/06/2019 21:13:09 Atrial premature complex(es) now present Prolonged QT interval now present Atrial fibrillation no longer present ST (T wave) deviation still present Electronically Signed On 08-07-19 10:21:38 PRODUCTION QUALITY ANALYST by Claudio Claudio
--- NOTE | 2019-08-07 10:24 | EKG ---
Test Date: 2019-08-06 Test Time: 21:13:09 Hatchery Helper: WANDY MEASUREMENT RESULTS: Intervals: Rate: 56 UT: QRSD: 78 QT: 468 QTc: 451 [place]: P: UT: QRS: -2 T: 22 INTERPRETIVE STATEMENTS: Atrial fibrillation with slow ventricular response Nonspecific ST abnormality, probably digitalis effect Abnormal ECG Compared to ECG 07/30/2019 13:18:27 No significant changes Electronically Signed On 08-07-19 10:23:59 BRAND ENGINEER by Claudio Claudio
--- NOTE | 2019-08-07 11:49 | CON ---
Identification: 79-year-old man. Reason For Consult: AFib. History Of Present Illness: Mr. Castillo is 79. He apparently goes in and out of AFib without any sym ptoms. He was in AFib here. His heart rate was 77. In sinus rhythm right now, his heart rate is 62 . He does not seem to be in any distress when he is in AFib. He is not a candidate for anticoagulat ion. He has severe dementia, bedridden status almost all the time. He is in the hospital for worsen ing dementia due to his sepsis. He is going to intermediate care or fpc bed for IV antibiot ics and after that probably fpc placement will be permanent because of his severe dementia, disability. Physical Examination: General: The patient awakens. He listens to speech, but he does not seem to understand or respond t o speech or gestures. The and daughter as well confirmed that. Lungs: Clear. Heart: Regular rate and rhythm. No gallop or murmur. Abdomen: Soft. Extremities: Trace edema. Plan And Recommendation: Is that we not give any new medications for AFib, neither anticoagulant nor antiarrhythmic drugs. His present medications can be continued. We do not need anything to reduce his heart rate that can be continued. CHIQUITA/SANDRA Voice ID: [id number] Report ID: [id number]
--- NOTE | 2019-08-07 19:13 | PN ---
Subjective: Patient lying in bed, opens eyes spontaneously, not in any distress. Objective: Vital Signs: Temperature 98.6, pulse 59, respirations 18, blood pressure 115/53. Lungs: Clear to auscultation. Heart: S1, S2. Regular. Abdomen: Soft, nontender. Bowel sounds present. Extremities: No edema. Assessment And Plan: Staphylococcus hominis bacteremia, pancytopenia. Continue cefazolin. We will follow patient as needed. NF/MODL Voice ID: [id number] Report ID: [id number]
[2019-08-07] MEDS: levETIRAcetam 500 MG TAB PO SCH (21:03)
[2019-08-07] MEDS: ATORVASTATIN 20 MG TAB PO SCH (21:03)
--- NOTE | 2019-08-08 00:25 | DS ---
Consultants: 1.Dr. Rousseau with GI. 2.Dr. Guerin with Infectious Disease. Procedures: Endoscopy on 08/02/2019. Diagnoses: Large hiatal hernia, multiple linear erosions in the body of the stomach along the diaphr agmatic edge of hiatal hernia, Amos's erosions 3 mm linear ulcer with dark heme in the body of the stomach along the diaphragmatic edge of the hiatal hernia. Recommended to be on acid suppression th erapy. Biopsy specimen shows no Helicobacter pylori organisms, mild chronic inactive gastritis, no e vidence of malignancy. Admitting Diagnoses: 1.Urinary tract infection. 2.Toxic encephalopathy. 3.Atrial fibrillation. 4.Generalized tonic-clonic seizures. 5.Alzheimer dementia. 6.Diabetes. 7.Hypertension. 8.Hyperlipidemia. Discharge Diagnoses: 1.Sepsis secondary to bacteremia and urinary tract infection. 2.Hypotension, improved. 3.Toxic encephalopathy. 4.Bacteremia secondary to Staphylococcus hominis. 5.Acute cystitis without hematuria secondary to Klebsiella pneumonia. 6.Gastric ulcer 3 mm with heme. 7.Acute blood loss anemia secondary to gastrointestinal bleed, status post 2 units of PRBCs. 8.Amos's erosions. 9.Upper gastrointestinal bleed. 10.Large hiatal hernia. 11.Acute kidney injury, normalized. 12.Atrial fibrillation, chronic, permanent. 13.Diabetes mellitus type 2 with hyperglycemia. 14.Essential hypertension. 15.Mixed hyperlipidemia. 16.Enlarged prostate with history of prostate cancer. 17.Alzheimer's dementia, moderate, without behavioral disturbance. 18.Essential tremor. Hospital Course: Patient is an elderly male 79-year-old with complicated past medical history includ ing hypertension, diabetes, dementia, hyperlipidemia, GERD, BPH, history of prostate cancer, comes in with altered mental status and UTI. Patient was started on IV antibiotics. Cultures were obtained. His blood cultures were also positive for Staph hominis. Infectious Disease, Dr. Guerin, was consu lted. Patient was then switched over to cefazolin and he was recommended to have IV antibiotics for 2 weeks. PICC line was placed. Echocardiogram was done to rule out any vegetations due to gram-posi tive bacteremia. Echo was normal. Patient has a history of atrial fibrillation, but is not on any c hronic anticoagulation due to his fall risk, his tremors, and dementia. Patient's mental status impr marlon slowly as his infection got better. Patient was also anemic and required blood transfusions. H is Hemoccult was positive. Therefore, GI was consulted. Dr. Rousseau performed endoscopy as mentioned above. He was found to have ulcer and Amos's erosions and large hiatal hernia. Patient was star teodoro on acid suppression therapy. He will need to be on Protonix b.i.d. for 1 month and then switched to daily. Overall, patient did well. He was then referred to [facility] for long-term IV antibiot ics. He will be discharged to [facility] once accepted. Medications: As per medication reconciliation list. Followup: Follow up with PCP in 2-3 days. Follow up with GI, Dr. Rousseau, in 2 weeks. Follow up wit h Infectious Disease, Dr. Guerin in 2 weeks. Return to ER for worsening condition. Diet: Diabetic. Activity: Fall precautions, ambulate with assist. Patient to also follow up with Urology for his pr ostate cancer and Neurology as scheduled for his dementia and tremors. Physical Examination: General: Awake, alert, and oriented x2, elderly male, not in any acute distress. CV: S1, S2. Irregularly irregular. Respiratory: Moving air well bilaterally. No wheezing or stridor. Gastrointestinal: Abdomen is soft, nontender, nondistended. Positive bowel sounds. Extremities: No clubbing, cyanosis, or edema. Neurologic: Nonfocal. SA/MODL Voice ID: [id number] Report ID: [id number]
[2019-08-08] MEDS: CEFAZOLIN/SWI 1gm 1 GM/10 ML SYR IV SCH ×3 (00:37→16:48)
[2019-08-08] MEDS: ALBUTEROL 2.5 MG/3 ML NEB SOL NEB SCH ×4 (02:18→20:25)
[2019-08-08] MEDS: IPRATROPIUM BROM 0.5MG/2.5ML NEB SCH ×4 (02:18→20:25)
[2019-08-08] MEDS: MEMANTINE HCL 10 MG TABLET PO SCH ×2 (08:47→20:01)
[2019-08-08] MEDS: lisinopriL 20 MG TAB PO SCH (08:47)
[2019-08-08] MEDS: PANTOPRAZOLE 40 MG INJ IVP SCH (08:47)
[2019-08-08] MEDS: PARoxetine HCl 10 MG TAB PO SCH (08:47)
[2019-08-08] MEDS: TAMSULOSIN 0.4 MG SR CAP PO SCH (08:47)
[2019-08-08] MEDS: DONEPEZIL HCL 5 MG TAB PO SCH ×2 (08:49→20:01)
[2019-08-08] MEDS: hydroCHLOROthiazide 25 MG TAB PO SCH (08:49)
[2019-08-08] MEDS: AMLODIPINE 5 MG TAB PO SCH (08:50)
[2019-08-08] MEDS: glipiZIDE 5 MG TAB PO SCH (08:50)
[2019-08-08] MEDS: ASPIRIN 81 MG CHEWABLE TABLET PO SCH (08:50)
--- NOTE | 2019-08-08 13:36 | P.PN ---
Subjective Date of Service: 08/08/19 Primary Care Provider: PCP Chief Complaint: UTI and toxic encephalopathy, sepsis, anemia Family at bedside. Still awaiting placement Physical Examination - Vital Signs Temperature: 97.6 F Blood Pressure: 107/61 Pulse: 82 Respirations: 18 Pulse Ox (%): 96 - Physical Exam General: Demented HEENT: Atraumatic, Normocephalic Neck: Supple, JVD not distended Respiratory: Clear to auscultation bilaterally, Normal air movement Cardiovascular: Regular rate/rhythm, Normal S1 S2 Gastrointestinal: Normal bowel sounds, No tenderness Musculoskeletal: No tenderness Integumentary: No rashes Neurological: Other - Studies Reviewed Medications List Reviewed: Yes Assessment And Plan - Plan 1. Sepsis secondary to urinary tract infection and bacteremia with acute organ dysfunction, resolving. 2. Hypotension, improved, was secondary to sepsis and shock. 3. Toxic encephalopathy, now back to baseline. Patient does have dementia. 4. Bacteremia secondary to Staphylococcus hominis. Continue with IV antibiotics for a total of 2 weeks. 5. Acute cystitis without hematuria secondary to Klebsiella pneumoniae, treated with IV antibiotics. 6. Gastric ulcer, 3 mm. Continue PPI. Appreciate GI input. 7. Acute blood loss anemia secondary to gastrointestinal bleed, status post 2 units of PRBCs. We will continue to monitor. Transfuse as needed. 8. Upper gastrointestinal bleed. Continue PPI, status post EGD. 9. Acute kidney injury, normalized. We will continue to monitor. Avoid NSAIDs. 10. Atrial fibrillation, chronic, permanent, not a good candidate for anticoagulation secondary to his dementia, fall risk, and recent GI bleed. 11. Large hiatal hernia. 12. Diabetes mellitus type 2 with hyperglycemia. Continue sliding scale insulin and monitor blood glucose levels. 13. Essential hypertension, stable. 14. Mixed hyperlipidemia, stable. 15. Enlarged prostate and history of prostate cancer. The patient to follow up with Urology. 16. Alzheimer dementia, moderate. No behavioral disturbance. 17. Essential tremor. 18. Deep venous thrombosis prophylaxis with SCDs. No chemical anticoagulation due to GI bleed. Plan: For transfer to [facility] once accepted for long-term IV antibiotics.
[2019-08-08 13:51] LABS: Absolute Lymphocytes (CBC) 0.5 K/uL (0.7-4.9); Basophils % 0.6 % (0-1.3); Hematocrit 28.8 % (39.6-49.0); MPV 7.2 fL (7.6-11.3); RBC Red Blood Cell Count 3.54 M/uL (4.33-5.43)
--- NOTE | 2019-08-08 14:02 | PN ---
Subjective: Patient lying in bed. by the bedside, opens eyes spontaneously, not in any acute d istress at this point. Objective: Vital Signs: Temperature 97.6, pulse 82, respirations 18, blood pressure 107/61. No kerri nges in examination. Laboratory Data: Shows WBC 3.5, hemoglobin 8.6, platelets 124. No new chemistry available at this t estevan. Assessment And Plan: Patient is currently on cefazolin 1 g q.8 hours for bacteremia and urinary trac t infection. Continue antibiotic and supportive care. Awaiting bed. We will follow the patient as needed. Total course of 2 weeks. We will repeat CBC, BMP, and blood culture. NF/MODL Voice ID: [id number] Report ID: [id number]
[2019-08-08 14:04] LABS: Potassium 4.1 mmol/L (3.5-5.1)
[2019-08-08] MEDS: ATORVASTATIN 20 MG TAB PO SCH (20:00)
[2019-08-08] MEDS: ACETAMINOPHEN 500 MG TAB PO PRN (20:00)
[2019-08-08] MEDS: levETIRAcetam 500 MG TAB PO SCH (20:01)
--- NOTE | 2019-08-08 21:26 | PN ---
Date of Progress Note: 08/08/2019 Mr. Castillo is 79, has been admitted with altered mental status. He has been in and out of atrial fib rillation. He has severe dementia, sepsis which has worsened his dementia. There is a plan to send him to a group home on IV antibiotics. Today he is in sinus rhythm. We do not suggest any beta-bl ocker secondary to his blood pressure and he definitely is not a candidate for anticoagulation. We w ill sign off his case for now. We will be available for questions if the need arises. GINNY/SANDRA Voice ID: [id number] Report ID: [id number]
[2019-08-09] MEDS: CEFAZOLIN/SWI 1gm 1 GM/10 ML SYR IV SCH ×3 (00:42→18:10)
[2019-08-09] MEDS: ALBUTEROL 2.5 MG/3 ML NEB SOL NEB SCH ×4 (01:45→20:25)
[2019-08-09] MEDS: IPRATROPIUM BROM 0.5MG/2.5ML NEB SCH ×4 (01:45→20:25)
[2019-08-09] MEDS: PANTOPRAZOLE 40 MG INJ IVP SCH (08:25)
[2019-08-09] MEDS: hydroCHLOROthiazide 25 MG TAB PO SCH (08:34)
[2019-08-09] MEDS: TAMSULOSIN 0.4 MG SR CAP PO SCH (08:34)
[2019-08-09] MEDS: ASPIRIN 81 MG CHEWABLE TABLET PO SCH (08:34)
[2019-08-09] MEDS: DONEPEZIL HCL 5 MG TAB PO SCH ×2 (08:35→21:31)
[2019-08-09] MEDS: MEMANTINE HCL 10 MG TABLET PO SCH ×2 (08:35→21:31)
[2019-08-09] MEDS: lisinopriL 20 MG TAB PO SCH (08:35)
[2019-08-09] MEDS: AMLODIPINE 5 MG TAB PO SCH (08:35)
[2019-08-09] MEDS: glipiZIDE 5 MG TAB PO SCH (08:35)
[2019-08-09] MEDS: PARoxetine HCl 10 MG TAB PO SCH (08:36)
--- NOTE | 2019-08-09 12:02 | P.PN ---
Subjective Date of Service: 08/09/19 Primary Care Provider: PCP Chief Complaint: UTI and toxic encephalopathy, sepsis, anemia Family at bedside. Still awaiting placement Physical Examination - Vital Signs Temperature: 97.6 F Blood Pressure: 140/69 Pulse: 67 Respirations: 16 Pulse Ox (%): 97 - Physical Exam General: Demented, Confused HEENT: EOMI Neck: Supple, JVD not distended Respiratory: Clear to auscultation bilaterally, Normal air movement Cardiovascular: Regular rate/rhythm, Normal S1 S2 Gastrointestinal: Normal bowel sounds, No tenderness Musculoskeletal: No tenderness Integumentary: No rashes Lymphatics: No axilla or inguinal lymphadenopathy - Studies Medications List Reviewed: Yes Assessment And Plan - Plan 1. Sepsis secondary to urinary tract infection and bacteremia with acute organ dysfunction, resolving. 2. Hypotension, improved, was secondary to sepsis and shock. 3. Toxic encephalopathy, now back to baseline. Patient does have dementia. 4. Bacteremia secondary to Staphylococcus hominis. Continue with IV antibiotics for a total of 2 weeks. End date is 08/13/2019 5. Acute cystitis without hematuria secondary to Klebsiella pneumoniae, treated with IV antibiotics. 6. Gastric ulcer, 3 mm. Continue PPI. Appreciate GI input. 7. Acute blood loss anemia secondary to gastrointestinal bleed, status post 2 units of PRBCs. We will continue to monitor. Transfuse as needed. 8. Upper gastrointestinal bleed. Continue PPI, status post EGD. 9. Acute kidney injury, normalized. We will continue to monitor. Avoid NSAIDs. 10. Atrial fibrillation, chronic, permanent, not a good candidate for anticoagulation secondary to his dementia, fall risk, and recent GI bleed. 11. Large hiatal hernia. 12. Diabetes mellitus type 2 with hyperglycemia. Continue sliding scale insulin and monitor blood glucose levels. 13. Essential hypertension, stable. 14. Mixed hyperlipidemia, stable. 15. Enlarged prostate and history of prostate cancer. The patient to follow up with Urology. 16. Alzheimer dementia, moderate. No behavioral disturbance. 17. Essential tremor. 18. Deep venous thrombosis prophylaxis with SCDs. No chemical anticoagulation due to GI bleed. Plan: For transfer to [facility] once accepted for long-term IV antibiotics.
--- NOTE | 2019-08-09 13:27 | P.PN ---
Subjective Date of Service: 08/10/19 Primary Care Provider: PCP Chief Complaint: UTI and toxic encephalopathy, sepsis, anemia Subjective: Improving (Eating lunch without complaint. Receiving IV antibiotics.) Review of Systems 10-point ROS is otherwise unremarkable General: Weakness (Improved.), Malaise (Improved.) Physical Examination - Vital Signs Temperature: 97.6 F Blood Pressure: 140/69 Pulse: 67 Respirations: 16 Pulse Ox (%): 97 - Physical Exam General: Alert, In no apparent distress, Oriented x2 HEENT: Atraumatic, Normocephalic, PERRLA, EOMI Neck: Supple Respiratory: Normal air movement Cardiovascular: Normal pulses Gastrointestinal: Soft and benign, No tenderness, No rebound, No guarding Neurological: Normal speech, Normal strength at 5/5 x4 extr - Studies Medications List Reviewed: Yes Assessment And Plan - Current Problems (Diagnosis) (1) Anemia Current Visit: Yes Status: Acute (2) Sepsis associated hypotension Current Visit: Yes Status: Acute (3) Toxic encephalopathy Current Visit: Yes Status: Acute (4) UTI (urinary tract infection) Current Visit: Yes Status: Acute Qualifiers: Urinary tract infection type: acute cystitis Hematuria presence: without hematuria Qualified Code(s): N30.00 - Acute cystitis without hematuria (5) Atrial fibrillation Current Visit: No Status: Acute (6) Alzheimer's dementia Current Visit: No Status: Chronic Qualifiers: (7) Diabetes Current Visit: No Status: Chronic Qualifiers: (8) HTN (hypertension) Current Visit: No Status: Chronic Qualifiers: Hypertension type: essential hypertension Qualified Code(s): I10 - Essential (primary) hypertension (9) Hyperlipidemia Current Visit: No Status: Chronic Qualifiers: (10) Gastric erosions Current Visit: Yes Status: Acute - Plan REC: 1) continue PPI bid for 2 months and then to qAM dosing. 2) GI clinic f/u
[2019-08-09] MEDS: SODIUM CHLORIDE 0.9% 10ML INJ IV PRN (18:10)
[2019-08-09] MEDS: levETIRAcetam 500 MG TAB PO SCH (21:31)
[2019-08-09] MEDS: ATORVASTATIN 20 MG TAB PO SCH (21:32)
[2019-08-10] MEDS: CEFAZOLIN/SWI 1gm 1 GM/10 ML SYR IV SCH ×3 (00:17→17:00)
[2019-08-10] MEDS: IPRATROPIUM BROM 0.5MG/2.5ML NEB SCH ×3 (02:03→14:05)
[2019-08-10] MEDS: ALBUTEROL 2.5 MG/3 ML NEB SOL NEB SCH ×3 (02:03→14:05)
[2019-08-10] MEDS: lisinopriL 20 MG TAB PO SCH (09:32)
[2019-08-10] MEDS: PANTOPRAZOLE 40 MG INJ IVP SCH (09:32)
[2019-08-10] MEDS: TAMSULOSIN 0.4 MG SR CAP PO SCH (09:33)
[2019-08-10] MEDS: hydroCHLOROthiazide 25 MG TAB PO SCH (09:33)
[2019-08-10] MEDS: AMLODIPINE 5 MG TAB PO SCH (09:33)
[2019-08-10] MEDS: MEMANTINE HCL 10 MG TABLET PO SCH (09:33)
[2019-08-10] MEDS: ASPIRIN 81 MG CHEWABLE TABLET PO SCH (09:33)
[2019-08-10] MEDS: DONEPEZIL HCL 5 MG TAB PO SCH (09:33)
[2019-08-10] MEDS: PARoxetine HCl 10 MG TAB PO SCH (09:33)
[2019-08-10] MEDS: glipiZIDE 5 MG TAB PO SCH (09:34)
--- NOTE | 2019-08-10 12:29 | P.DS ---
Admission Date: 07/30/19 Discharge Date: 08/11/19 Primary Care Provider: PCP Disposition: TRANSFER TO SNF Discharge Condition: FAIR Reason for Admission: UTI and toxic encephalopathy, sepsis, anemia Procedures: Endoscopy - Problems (1) Sepsis associated hypotension Status: Acute (2) Toxic encephalopathy Status: Acute (3) Anemia Status: Acute (4) Gastric erosions Status: Acute (5) UTI (urinary tract infection) Status: Acute Qualifiers: Urinary tract infection type: acute cystitis Hematuria presence: without hematuria Qualified Code(s): N30.00 - Acute cystitis without hematuria (6) Alzheimer's dementia Status: Chronic Qualifiers: (7) Diabetes Status: Chronic Qualifiers: (8) HTN (hypertension) Status: Chronic Qualifiers: Hypertension type: essential hypertension Qualified Code(s): I10 - Essential (primary) hypertension (9) Hyperlipidemia Status: Chronic Qualifiers: Hospital Course: Mr. Castillo is a 79-year-old gentleman who was brought into the ER for worsened confusion & AMS. Patient has a history of prostate dementia and Parkinson's disease. Initial evaluation in the ER found urinalysis to be strongly positive suggestive of UTI. Urine culture grew Klebsiella pneumonia. Blood culture grew staphyloccocus hominis which the source was likely pressure ulcer. Repeat blood culture showed no growth. He will continue antibiotics, to be completed on 2019. Due to severe sepsis, he had MARY, now resolved. Patient had upper GI bleed while inpatient, received 2 units PRBC. He underwent endoscopy with gastric erosions noted. He has been initiated on ppi and now tolerating po intake. His mental status have improved to baseline. Patient has advanced dementia. He remained hemodynamically stable to dc to SNF and [facility]. Vital Signs/Physical Exam: Temp Pulse Resp BP Pulse Ox 97.6 F 67 16 140/69 97 08/10/19 12:09 08/10/19 12:09 08/10/19 12:09 08/10/19 12:09 08/10/19 12:09 Laboratory Data at Discharge: WBC 5.2 K/uL (4.3-10.9) D 08/08/19 13:40 Hgb 9.5 g/dL (13.6-17.9) L 08/08/19 13:40 Hct 28.8 % (39.6-49.0) L 08/08/19 13:40 Plt Count 194 K/uL (152-406) D 08/08/19 13:40 PT 13.9 SECONDS (9.5-12.5) H 07/31/19 04:35 INR 1.19 07/31/19 04:35 APTT 25.8 SECONDS (24.3-36.9) 07/28/19 19:59 Sodium 139 mmol/L (136-145) 08/08/19 13:40 Potassium 4.1 mmol/L (3.5-5.1) 08/08/19 13:40 BUN 16 mg/dL (7-18) 08/08/19 13:40 Creatinine 1.15 mg/dL (0.55-1.3) 08/08/19 13:40 Glucose 192 mg/dL (74-106) H 08/08/19 13:40 Phosphorus 2.9 mg/dL (2.5-4.9) 07/31/19 04:35 Magnesium 2.3 mg/dL (1.8-2.4) 08/03/19 03:43 Total Bilirubin 0.5 mg/dL (0.2-1.0) 07/30/19 06:13 AST 29 U/L (15-37) 07/30/19 06:13 ALT 18 U/L (12-78) 07/30/19 06:13 Alkaline Phosphatase 73 U/L (45-117) 07/30/19 06:13 Lipase 143 U/L (73-393) 07/28/19 19:59 Home Medications: Amlodipine Besylate 5 mg PO DAILY 11/03/18 Aspirin 81 mg PO DAILY 11/03/18 Atorvastatin Calcium [Lipitor*] 20 mg PO BEDTIME 11/03/18 Donepezil HCl 10 mg PO BID 11/03/18 Memantine HCl 10 mg PO BID 11/03/18 Metformin HCl 500 mg PO DAILY 11/03/18 PARoxetine HCl [Paxil*] 10 mg PO DAILY 11/03/18 Tamsulosin HCl 0.4 mg PO DAILY 11/03/18 glipiZIDE [Glucotrol*] 5 mg PO DAILY 11/03/18 hydroCHLOROthiazide [Hydrochlorothiazide] 50 mg PO DAILY 11/03/18 lisinopriL [Lisinopril] 40 mg PO DAILY 11/03/18 Pantoprazole Sodium 40 mg PO BID #60 tablet. 08/07/19 Cephalexin [Keflex] 500 mg PO Q6HR 3 Days cap 08/10/19 New Medications: Cephalexin [Keflex] 500 mg PO Q6HR 3 Days cap Pantoprazole Sodium 40 mg PO BID #60 tablet. Patient Discharge Instructions: f/up w PCP in 2-3 days. f/up w GI Dr. Rousseau in 2 weeks. f/up w ID Dr. Guerin in 2 weeks. Return to ER for worsening condition Diet: ADA Activity: Fall precautions Followup: Khai Guerin MD [ACTIVE - CAN ADMIT] - 1-2 Weeks (Infectious disease doctor - call to schedule an appointment) Twin Rousseau MD [ASSOCIATE-ACTIVE - CAN ADMIT] - 1-2 Weeks (GI doctor- call to schedule an appointment )
[2019-08-10 16:01] VITALS: O2SAT 94
[2019-08-10 17:33] VITALS: BP 126/85; TEMP 97.8
--- NOTE | 2019-08-10 20:49 | PN ---
Subjective: Patient is lying in bed. No new acute event. Chart reviewed. Objective: Vital Signs: Temperature 97, pulse 80, respirations 16, blood pressure 110/70. Lungs: Clear to auscultation. Heart: S1, S2. Regular. Abdomen: Soft, nontender. Bowel sounds present. Extremities: No edema. Medications: Patient is currently on cefazolin. Assessment And Plan: Bacteremia and urinary tract infection. Currently being treated with cefazolin . Awaiting bed. Continue supportive care and we will follow patient as needed. Pancytopenia has im proved. White count is now 5.2, platelets are 194. We will follow the patient as needed. NF/MODL Voice ID: [id number] Report ID: [id number]
== END 2019-08-10 18:32 | DRG 871 ==
LOC: ER 17:00 → ERHOLD 07-29 00:40 → 4TH 07-29 01:03 → OBSVTOIN 07-30 14:15
PROVIDERS: ADMIT Internal Medicine; ATTEND Hospitalist
PROC: 30233N1 Transfusion of Nonautologous Red Blood Cells into Peripheral Vein, Percutaneous Approach (ICD-10-PCS; 2019-07-30)
PROC: 30233N1 Transfusion of Nonautologous Red Blood Cells into Peripheral Vein, Percutaneous Approach (ICD-10-PCS; 2019-07-30)
PROC: 0DB68ZX Excision of Stomach, Via Natural or Artificial Opening Endoscopic, Diagnostic (ICD-10-PCS; principal; 2019-08-02 10:00)
DX: A41.1 Sepsis due to other specified staphylococcus (principal); R65.21 Severe sepsis with septic shock; G92 Toxic encephalopathy; K25.4 Chronic or unspecified gastric ulcer with hemorrhage; N30.00 Acute cystitis without hematuria; D62 Acute posthemorrhagic anemia; D61.818 Other pancytopenia; B96.1 Klebsiella pneumoniae [K. pneumoniae] as the cause of diseases classified elsewhere; G30.9 Alzheimer's disease, unspecified; F02.80 Dementia in other diseases classified elsewhere, unspecified severity, without behavioral disturbance, psychotic disturbance, mood disturbance, and anxiety; G20 Parkinson's disease; E78.00 Pure hypercholesterolemia, unspecified; Z66 Do not resuscitate; K21.9 Gastro-esophageal reflux disease without esophagitis; I48.91 Unspecified atrial fibrillation; E87.6 Hypokalemia; E78.2 Mixed hyperlipidemia; K44.9 Diaphragmatic hernia without obstruction or gangrene
CPT/HCPCS: 36415; 36430; 70450; 71045; 74177; 80048; 80053; 80076; 80202; 81001; 82274; 82533; 82550; 82553; 82728; 82947; 83540; 83605; 83690; 83735; 84100; 84132; 84145; 84439; 84443; 84466; 84484; 85018; 85025; 85044; 85610; 85730; 86850; 86900; 86901; 87040; 87070; 87077; 87081; 87086; 87088; 87186; 87205; 87804; 88305; 88312; 93005; 93306; 94640; 96361; 96365; 96375; 97161; 97530; 99285; C9113; G0378; J0690; J0696; J1200; J1650; J2543; J2704; J3480; J7030; P9016; P9047; Q9967

== ENCOUNTER 2020-04-17 17:00 | Emergency (ER) | payer OTHER ==
--- OUTSIDE RECORDS SUMMARY | 2020-04-17 17:02 | XMS REPORT | Continuity of Care Document ---
:1940 Author Organization [facility] t Address [address] [place] [address] Care Team Providers Name Role Phone Miladys Attending Clinician Moody Wise Attending Clinician Opal Robles Attending Clinician Tim Turcios Attending Clinician Opal Robles Admitting Clinician Problems Condition Condition Condition Status Onset Resolution Last Treating Co mments Source Name Details Category Date Date Treatment Clinician Date R31.0 Diagnosis Active 2015-08-08 [facility] GROSS 1-08 16:01:00 l HEMATURIA R31.0 00:00: K[place] n GROSS 00 HEMATURIA Active 08/02/2015 [facility] COPD Diagnosis Active 2014-072015-06-24 Mem oria 08-17 17:18:00 l COPD 00:00: [place] 00 Active 06/17/2015 [facility] MEMORY Diagnosis Active 2014-072015-05-13 Mem oria DISTURBANC 0-14 17:45:00 l E MEMORY 00:00: [place] DISTURBANC 00 E Active 05/08/2015 [facility] 185 Diagnosis Active 2014-01-31 Mem oria - 07:34:00 l 185 00:00: [place] 00 Active 01/31/2014 [facility] UNSPECIFIE Diagnosis Active 2015-05-13 Memoria D DEMENTIA 17:45:00 l WITHOUT Thony BEHAVIORAL UNSPECIFIE D DEMENTIA WITHOUT BEHAVIORAL Active [facility] CHRONIC Diagnosis Active 2015-06-24 Me moria OBSTRUCTIV 17:18:00 l E CHRONIC [place] PULMONARY OBSTRUCTIV DISEASE, U E PULMONARY DISEASE, U Active [facility] GROSS Diagnosis Active 2015-08-08 Mem oria HEMATURIA 16:01:00 l GROSS [place] HEMATURIA Active [facility] Allergies, Adverse Reactions, Alerts This patient has no known allergies or adverse reactions. Social History Social Habit Start Date Stop Date Quantity Comments Source Social History 2015-08-09 2015-08-09 [facility] 05:59:00 05:59:00 Medications Ordered Filled Start Stop Current Ordering Indication Dosage Frequency Signature Comments Components Source Medication Medication Date Date Medication? Clinician (SIG) Name Name Guerrero No Notes: Silvia fitch 300 1-15 (Same l 01:00: as:Torie Thony 00 ue 300). Vital Signs Vital Name Observation Time Observation Value Comments Source BMI Calculated 2015-06-24 18:05:00 Silvia Stapleton Height 2015-06-24 18:05:00 167.64 cm Jennifer Bhandari Weight 2015-06-24 18:05:00 [facility] Thony Procedures This patient has no known procedures. Encounters Start End Encounter Admission Attending Care Care Encounter Source Date/Time Date/Time Type Type Clinicians Facility Department ID 2015-08-08 2015-08-08 Outpatient Miladys [facility] [id number] 16:00:00 23:59:00 Johnathan 02 2015-06-24 2015-06-24 Outpatient Frandy [facility] [id number] 11:25:00 23:59:00 Tripp 2015-05-13 2015-05-13 Outpatient Margaret [facility] [id number] 13:45:00 23:59:00 Bryant M 00 2014-01-01 2014-01-30 Outpatient Tam [facility] [id number] 11:31:00 23:59:00 Maurice Dumont Results Test Description Test Time Test Comments Results Result Comments Source CHEM PANEL 2015-08-09 74 [facility] 00:01:00 CHEM PANEL 2015-08-09 1.0 [facility] 00:01:00
--- OUTSIDE RECORDS SUMMARY | 2020-04-17 17:02 | XMS REPORT | Continuity of Care Document ---
:1940 Author Organization [email or web address] Care Team Providers Name Role Phone [email or web address] Unavailable Un available Problems Problem Status Onset Classification Date Comments Sourc e Date Reported R31.0 GROSS Active [facility] HEMATURIA 6 [place] COPD Active [facility] 5 [place] MEMORY Active [facility] DISTURBANCE 5 [place] 185 Active [facility] 4 [place] UNSPECIFIED Active [facility] DEMENTIA [place] WITHOUT BEHAVIORAL CHRONIC Active [facility] PULMONARY DISEASE, U GROSS HEMATURIA Active [facility] reater [facility] Medications Medication Details Route Status Patient Ordering Order Source Instructions Provider Date Omnipaque 300 Notes: Inactive 08/09/19 MH (Same 16 Greater as:Omnipaq [place] ue 300). Allergies, Adverse Reactions, Alerts No Known Medication Allergies Immunizations No Data Provided for This Section Results Order Results Value Reference Date Interpretation Comments Source Name Range CHEM eGFR 74 08/09/ Result PANEL 2016 Comment: The Greater eGFR is Heights calculated using the CKD-EPI formula. In most young, healthy individuals the eGFR will be >90 mL/min/1.73m2. The eGFR declines with age. An eGFR of 60-89 may be normal in some populations, particularly the elderly, for whom the CKD-EPI formula has not been extensively validated. Use of the eGFR is not recommended in the following populations:<b r/>
Indivi duals with unstable creatinine concentrations , including patients and those with serious co-morbid conditions.

Patient s with extremes in muscle mass or diet.

The data above are obtained from the National Kidney Disease Education Program (NKDEP) which additionally recommends that when the eGFR is used in patients with extremes of body mass index for purposes of drug dosing, the eGFR should be multiplied by the estimated BMI. CHEM POC 1.0 0.5 - 1.4 08/09/ PANEL Creatinine 2016 [facility] Pathology Reports No Data Provided for This Section Diagnostic Reports Report Value Date Source Abdomen/Pelvis w/wo CT ABDOMEN AND PELVIS WITH AND WITHOUT CONTR AST. 08/08/2015 [facility] IV contrast CT INDICATION: Hematuria, dysuria. Axial images with sagittal a nd coronal reconstructions were obtained following intestinal contrast and prior to and following nonionic venous contrast as requested, Omnipaque 100 cc. The lung bases are clear. There is fatty infiltration of the liver. A small enhancing right lobe hepatic lesion is consistent with hemangioma. The gallbladder and common duct and spleen appear normal. No renal mass, calculus, hyd ronephrosis or perinephric stranding is noted. There is a tiny right renal cortical cyst and there are small left parapelvic cysts. The adrenals and pancreas appear normal. There is slight circumferent ial mural thickening of the distal esophagus and there is a possible small hiatal hernia. Extensive diverticular changes involve the sigmoid and there is mild constipation. There is circumferential mur al thickening of the undistended urinary bladder. The prostate is not enlarged. No adenopathy or ascites is seen. Minor atherosclerosis and moderate spondylosis a re noted. IMPRESSION: 1. Small volume bladder wall thickening. 2. No upper urinary tract pathology. 3. Fatty liver with probable small right lobe he mangioma. 4. Mural thickening of the distal esophagus poss ible small hiatal hernia. 5. Sigmoid diverticulosis and constipation. SL: 12 Brain w/wo contrast MR BRAIN WITHOUT AND WITH CONTRAST 5 [facility] MRI HISTORY: F03.90 Unspecified dementia without behavioral disturbance COMPARISON: None FINDINGS: Axial T1-weighted images reveal no evidence of subacute hemorrhage. There is no evidence of intracranial mass or shift of midline structures. Axial FLAIR images show minimal periventricular an d subcortical white matter c hanges consistent with small vessel ischemic disease.. Axial diffusion weighted images reveal no recent infarct. Axial Gradient echo images show reveal no eviden ce of prior hemorrhage. Axial T2 images show normal flow-voids in the major vascular structures. There is prominence of ventricles and sulci in a fashion consistent with generalized cerebral atrophy. The paranasal sinuses and mastoid air cells are clear. Postcontrast views include a xial, coronal and sagittal sequences with T1- weighting and reveal no evidence of enhancing lesion or vascular malformation. IMPRESSION: 1. Mild generalized cerebral atrophy and chronic small vessel ischemic change. 2. No definite acute abnormality identified. SL: 12 Consultation Notes No Data Provided for This Section Discharge Summaries No Data Provided for This Section History and Physicals No Data Provided for This Section Vital Signs Vital Sign Value Date Comments Source BMI Calculated 25.88 06/24/2015 [facility] [place] Height 167.64 cm 06/24/2015 [facility] Weight 72.727 06/24/2015 [facility] Encounters Location Location Encounter Encounter Reason Attending ADM DC Stat us Source Details Type Number For Provider Date Date Visit [facility] OP [id number] Maurice 01/01 01/31 Thony Turcios /2013 [facility] Outpatient [id number] Bryant 05/13 05/14 Thony Robles /2014 [facility] Outpatient [id number] Ty 06/24 06/25 Thony Wise /2014 [facility] Outpatient [id number] Gabriela 08/08 08/09 Thony Hook /2015 [facility] Outpatient [id number] GABRIELA 09/09 [facility] Thony Procedures No Data Provided for This Section Assessment and Plan No Data Provided for This Section Plan of Care No Data Provided for This Section Social History Social History Date Source No data available for this 08/09/2015 [facility] [place] ights section Family History No Data Provided for This Section Advance Directives No Data Provided for This Section Functional Status No Data Provided for This Section
[2020-04-17 17:52] LABS: Absolute Lymphocytes (CBC) 0.6 K/uL (0.7-4.9); Hematocrit 12.6 % (39.6-49.0); Lymphocytes % 17.2 % (15.3-44.8); MPV 7.7 fL (7.6-11.3); RBC Red Blood Cell Count 1.81 M/uL (4.33-5.43)
[2020-04-17 17:53] LABS: Protime INR 1.11
--- NOTE | 2020-04-17 17:54 | RAD REPORT ---
EXAM DESCRIPTION: RAD - Chest Single View - 04/17/2020 5:48 pm CLINICAL HISTORY: weakness Chest pain. COMPARISON: Chest Single View dated 08/04/2019; Chest Single View dated 07/30/2019; Chest Single View d ated 07/29/2019; Chest Single View dated 07/28/2019 FINDINGS: Portable technique limits examination quality. Mild interstitial pulmonary edema is seen. Trace bilateral pleural effusions evident. Mild right uppe r lobe opacity is present which could be the superimposed developing infiltrate. The heart is moderat morenita enlarged in size. No displaced fractures. IMPRESSION: Mild CHF. Superimposed mild right upper lobe developing infiltrate/pneumonia is possible.
[2020-04-17 17:59] LABS: Blood Morphology Comment NOTED (NOT SEEN); Hypochromasia 2+; Platelet Estimate ADEQ; White Blood Cell Scan OK (OK)
[2020-04-17 18:10] LABS: ALT/SGPT 13 U/L (12-78); AST/SGOT 5 U/L (15-37); Albumin 3.1 g/dL (3.4-5.0); Alkaline Phosphatase 82 U/L (45-117); BUN Blood Urea Nitrogen 23 mg/dL (7-18); Bicarbonate 25 mmol/L (21-32); Bilirubin Direct 0.1 mg/dL (0-0.2); Bilirubin Total 0.3 mg/dL (0.2-1.0); Glucose Level 104 mg/dL (74-106); Magnesium 2.1 mg/dL (1.8-2.4); NT PRO-BNP 2089 pg/mL (<450); Potassium 3.9 mmol/L (3.5-5.1); Protein, Total 5.8 g/dL (6.4-8.2); Sodium Level 138 mmol/L (136-145); Troponin (Emerg Dept Use Only) < 0.02 ng/mL (0.0-0.045)
--- NOTE | 2020-04-17 18:29 | ER ---
Nurse's Notes [facility] Name: Gabriel Castillo Age: 79 yrs Sex: Male : 1940 Arrival Date: 04/17/2020 Time: 17:06 Bed 3 Private MD: Twin Atkinson E Diagnosis: Anemia, unspecified;Gastrointestinal hemorrhage, unspecified;Parkinson's disease;Dementia in other diseases classified elsewhere;Atrial fibrillation and flutter;Other pneumonia, unspecified organism;Unspecified combined systolic (congestive) and diastolic (congestive) heart failure;Pleural effusion in conditions classified elsewhere;Constipation Presentation: 04/17 17:08 Chief complaint: EMS states: Pt from [facility], staff states that last week pt was ph noted to be pale in appearance so ordered labs on Wednesday, returned today w/ Hgb 4.2 and Hct 14. Hx of advanced dementia and Parkinson's, A\T\O x 0, VSS, HR 70, BP 102/51, unable to obtain BGL d/t low Hct. Coronavirus screen: Client denies travel out of the [place] in the last 14 days. At this time, the client does not indicate any symptoms associated with coronavirus-19. Ebola Screen: No symptoms or risks identified at this time. Initial Sepsis Screen: Does the patient meet any 2 criteria? No. Patient's initial sepsis screen is negative. Does the patient have a suspected source of infection? No. Patient's initial sepsis screen is negative. Risk Assessment: Do you want to hurt yourself or someone else? Patient reports no desire to harm self or others. Onset of symptoms was April 17, 2020. 17:08 Method Of Arrival: EMS: [facility] ph 17:08 Acuity: DAVID 2 ph Historical: - Allergies: 17:46 Iodine; ph - Home Meds: 17:46 amlodipine 5 mg tab 1 tab once daily [Active]; aspirin 81 mg Oral chew 1 tab once daily ph [Active]; atorvastatin 20 mg Oral tab 1 tab once daily [Active]; hydrochlorothiazide 50 mg Oral tab 1 tab once daily [Active]; donepezil 10 mg oral tab 1 tab twice a day [Active]; metformin 500 mg Oral Tb24 1 tab 2 times per day [Active]; lisinopril 40 mg Oral tab 1 tab once daily [Active]; paroxetine HCl 10 mg oral tab 1 tab once daily [Active]; tamsulosin 0.4 mg oral cp24 1 cap once daily [Active]; omeprazole 40 mg Oral cpDR 1 cap 2 times per day [Active]; - PMHx: 17:46 Dementia; Diabetes - NIDDM; High Cholesterol; Hypertension; Parkinsons; tremors; ph - Immunization history:: Adult Immunizations up to date. - Social history:: Smoking status: unknown. - Family history:: not pertinent. Screenin:39 Abuse screen: Denies threats or abuse. Denies injuries from another. Nutritional ph screening: No deficits noted. Tuberculosis screening: No symptoms or risk factors identified. Fall Risk None identified. Assessment: 17:46 General: Appears in no apparent distress. uncomfortable, ill, Behavior is cooperative, ph flat, quiet. Pain: Unable to use pain scale. Patient is disoriented. Neuro: Level of Consciousness is awake, alert, obeys commands, Oriented to person. Neuro: Level of Consciousness is awake, obeys commands, Oriented to person, tremors noted to upper extremities . Cardiovascular:. Cardiovascular: Capillary refill is sluggish in bilateral fingers Rhythm is regular. Respiratory: Airway is patent Respiratory effort is even, unlabored, Respiratory pattern is regular, symmetrical. GI: Abdomen is non-distended. Derm: Skin is intact, is fragile, is thin, Skin is pale. Musculoskeletal: Circulation, motion, and sensation intact. 19:00 Reassessment: Patient appears in no apparent distress at this time. No changes from ph previously documented assessment. Patient and/or family updated on plan of care and expected duration. Pain level reassessed. SO at bedside. 21:00 Reassessment: Patient appears in no apparent distress at this time. mg2 22:00 Reassessment: Patient appears in no apparent distress at this time. family informed mg2 about the need for transfer. family agreed. 23:00 Reassessment: Patient appears in no apparent distress at this time. Patient and/or mg2 family updated on plan of care and expected duration. Pain level reassessed. 04/18 01:00 Reassessment: tremors noted with the patient. mg2 02:42 Reassessment: spoke with Rosa at the transfer center who requests updates on POC and sg the patients ability to care for himself, Rosa RN with transfer center informed of my observations and speaking with the pt spouse who states this patient is a resident at [facility] and has a member of staff available to assist him and she is there daily with him in the [place]. 02:52 Reassessment: Rosa OLSEN with Transfer center requesting an update on the pt COVID 19 sg screening results, informed what was documented by ER staff when the patient arrived yesterday, still remains a negative screening result today. Rosa OLSEN stated understanding, awaiting a bed assignment/ transfer acceptance status pending at this time, Primary RN Pooja notified of pt status. 03:11 Reassessment: Rosa OLSEN from the transfer center would like to notify the pt family that sg they will not be allowed to be with the patient this morning until visiting hours begin at 0800. Visiting hours are from [id number] per Rosa OLSEN. pt family reports that they had called the after hours line for visitor information and were instructed of the visiting hours. Primary nurse Rigoberto notified. 03:29 Reassessment: report given to PRETTY Mortensen of [facility] ICU. mg2 03:58 Reassessment: report given to EMS. patient in stable condition, V/S normal with mg2 Ongoing protonix drip. Vital Signs: 04/17 17:08 BP 96 / 48; Pulse 79; Resp 18; Temp 97.2; Pulse Ox 98% on R/A; ph 17:49 BP 93 / 51; Pulse 76; Resp 16; Pulse Ox 98% on R/A; ph 18:30 BP 117 / 105; Pulse 71; Resp 18; Pulse Ox 98% on R/A; ph 19:00 BP 108 / 58; Pulse 70; Resp 16; Pulse Ox 99% on R/A; ph 20:00 BP 105 / 80; Pulse 78; Resp 18; Temp 98.8; Pulse Ox 100% on 2 lpm NC; mg2 21:00 BP 147 / 71; Pulse 87; Resp 18; Temp 98.8; Pulse Ox 100% on 2 lpm NC; mg2 22:00 BP 129 / 53; Pulse 84; Resp 18; Temp 98.7; Pulse Ox 100% on 2 lpm NC; mg2 23:40 BP 126 / 76; Pulse 90; Resp 18; Temp 99.3; Pulse Ox 100% on 2 lpm NC; mg2 04/18 01:50 BP 144 / 76; Pulse 92; Resp 18; Temp 99.6; Pulse Ox 100% on 3 lpm NC; mg2 03:16 BP 131 / 73; Pulse 76; Resp 17; Temp 99.3(C); Pulse Ox 100% 3 lpm ; mg2 ED Course: 04/17 17:06 Patient arrived in ED. em1 17:08 Mounika Wilkerson, RN is Primary Nurse. ph 17:11 eGnaro Briggs MD is Attending Physician. kdr 17:13 Triage completed. ph 17:39 Initial lab(s) drawn, by ED staff, sent to lab. T\T\S collected, blood band applied to ph patient. Inserted saline lock: 20 gauge in right forearm, using aseptic technique. Blood collected. 17:39 Patient has correct armband on for positive identification. Placed in gown. Bed in low ph position. Call light in reach. Side rails up X2. desk monitor on. Pulse ox on. NIBP on. Warm blanket given. Verbal reassurance given. 17:39 Arm band placed on Patient placed in an exam room, on a stretcher, on security monitor, ph on pulse oximetry. 17:47 XRAY Chest (1 view) In Process Unspecified. EDMS 17:48 EKG done, by ED staff, reviewed by Genaro Briggs MD. 3 18:08 Attending Physician role handed off by Genaro Briggs MD [facility] 18:08 Yair Easley MD is Attending Physician. kerri 18:50 initiated a transfer with Nevaeh Gonzalez from [facility]. mw2 19:[address] Vences the GI specialist network contract manager for [facility] with Dr. Easley for 2 patient transfer consultation. 19:29 CT Chest Abdomen Pelvis W/O Contrast: no iv , no oral In Process Unspecified. EDMS 19:30 Inserted saline lock: 20 gauge in left forearm, using aseptic technique. mg2 19:[address] Canseco the hospitalist network contract manager for [facility] with Dr. Easley for 2 patient transfer consultation. 21:00 No provider procedures requiring assistance completed. mg2 21:00 Toussaint cath inserted, using sterile technique, 16 Fr., by az, balloon inflated. mg2 21:00 Repositioned patient. Cleaned of incontinence. mg2 04/18 00:09 covid swab sent. Patient transferred, IV remains in place. mg2 01:[address] Mosqueda the hospitalist network contract manager for [facility] with Dr. Easley for [facility] patient transfer consultation. 02:30 Rosa Marinelli the transfer operator from [facility] called back and mwEugenio was told by her Leasing Specialist that they are going to have to wait till the morning to give the patient a bed because right now we don't have a bed close to the nurses station or a sitter to sit with him since he is non verbal. 02:45 Twin Atkinson MD is Private Physician. 03:01 administrative approval given by Rosa Marinelli RN/ patient has been accepted to [address] bed 1461/ Dr. Mosqueda has accepted the patient in transfer/ report to be called to [phone]. Administered Medications: 04/17 19:50 Drug: ProTONIX 80 mg Route: IVP; Site: right forearm; mg2 20:30 Follow up: Response: No adverse reaction mg2 19:55 Drug: Benadryl 12.5 mg Route: IVP; Site: right forearm; mg2 22:05 Follow up: Response: No adverse reaction mg2 19:55 Drug: Tylenol Suppository 650 mg Route: NM; mg2 20:30 Follow up: Response: No adverse reaction mg2 20:21 Drug: Zosyn 3.375 grams Route: IVPB; Infused Over: 60 mins; Site: left forearm; mg2 21:30 Follow up: Response: No adverse reaction; IV Status: Completed infusion mg2 21:20 Drug: ProTONIX 8 mg/hr Route: IV; Rate: 25 ml/hr; Site: left forearm; mg2 04/18 03:30 Follow up: Response: No adverse reaction; IV Status: Infusion continued upon transfer mg2 Medication: 03:00 Blood products: PRBCs X 3 units given. See transfusion record. mg2 Outcome: 04/17 18:29 ER care complete, transfer ordered by [facility] 04/18 03:59 Transferred by ground EMS to [facility], Transfer form completed. mg2 Condition: stable Instructed on the need for transfer, Demonstrated understanding of instructions. 03:59 Patient left the ED. mg2 Addendum: 04/19/2020 14:39 Addendum: COVID-19 Result: Negative result given to RN to notify pt. Contacted by: baldo Boland RN . Notified pt of negative COVID 19 swab results. Pt advised that even with a negative test result they should remain in isolation until symptom free for 3 days without medication. Pt also advised to return to the ED for worsening symptoms. Signatures: Dispatcher [employer] Balbina Corley RN RN sv Gay, Steven, RN RN sg Anderson, Corey, MD MD cha Rittger, Kevin, MD MD kdr Martinez, Eric 1 Mounika Wilkerson RN RN Mely Garcia [facility] Herrera Louise 2 Rigoberto Henderson RN RN mg2
--- NOTE | 2020-04-17 18:30 | EDPHYS ---
Physician Documentation [facility] Name: Gabriel Castillo Age: 79 yrs Sex: Male : 1940 Arrival Date: 04/17/2020 Time: 17:06 Bed 3 Private MD: Twin Atkinson E ED Physician Yair Easley HPI: 04/17 18:22 This 79 yrs old Male presents to ER via EMS with complaints of anemia and kerri pale. 18:22 The patient presents to the emergency department with rectal bleeding, unknown. Onset: kerri The symptoms/episode began/occurred 2 day(s) ago. Abdominal pain: none is appreciated. Modifying factors: The symptoms are alleviated by nothing, the symptoms are aggravated by nothing. hgb low. Associated signs and symptoms: The patient has no apparent associated signs or symptoms. Onset: The symptoms/episode began/occurred at an unknown time. Severity of symptoms: At their worst the symptoms were mild in the emergency department the symptoms are unchanged. The patient has experienced similar episodes in the past, several times. Historical: - Allergies: 17:46 Iodine; ph - Home Meds: 17:46 amlodipine 5 mg tab 1 tab once daily [Active]; aspirin 81 mg Oral chew 1 tab once daily ph [Active]; atorvastatin 20 mg Oral tab 1 tab once daily [Active]; hydrochlorothiazide 50 mg Oral tab 1 tab once daily [Active]; donepezil 10 mg oral tab 1 tab twice a day [Active]; metformin 500 mg Oral Tb24 1 tab 2 times per day [Active]; lisinopril 40 mg Oral tab 1 tab once daily [Active]; paroxetine HCl 10 mg oral tab 1 tab once daily [Active]; tamsulosin 0.4 mg oral cp24 1 cap once daily [Active]; omeprazole 40 mg Oral cpDR 1 cap 2 times per day [Active]; - PMHx: 17:46 Dementia; Diabetes - NIDDM; High Cholesterol; Hypertension; Parkinsons; tremors; ph - Immunization history:: Adult Immunizations up to date. - Social history:: Smoking status: unknown. - Family history:: not pertinent. ROS: 18:22 Constitutional: Negative for fever, chills, and weight loss, Eyes: Negative for injury, kerri pain, redness, and discharge, ENT: Negative for injury, pain, and discharge, Neck: Negative for injury, pain, and swelling, Cardiovascular: Negative for chest pain, palpitations, and edema, Respiratory: Negative for shortness of breath, cough, wheezing, and pleuritic chest pain, Back: Negative for injury and pain, : Negative for injury, bleeding, discharge, and swelling, MS/Extremity: Negative for injury and deformity, Skin: Negative for injury, rash, and discoloration, Neuro: Negative for headache, weakness, numbness, tingling, and seizure, Psych: Negative for depression, anxiety, suicide ideation, homicidal ideation, and hallucinations, Allergy/Immunology: Negative for hives, rash, and allergies, Endocrine: Negative for neck swelling, polydipsia, polyuria, polyphagia, and marked weight changes, Hematologic/Lymphatic: Negative for swollen nodes, abnormal bleeding, and unusual bruising. 18:22 Abdomen/GI: Positive for constipation, Negative for abdominal pain, nausea and vomiting, black/tarry stool, rectal pain, rectal bleeding. 18:22 Skin: Positive for pallor. Exam: 18:22 Constitutional: This is a well developed, well nourished patient who is awake, alert, kerri and in no acute distress. Head/Face: Normocephalic, atraumatic. Eyes: Pupils equal round and reactive to light, extra-ocular motions intact. Lids and lashes normal. Conjunctiva and sclera are non-icteric and not injected. Cornea within normal limits. Periorbital areas with no swelling, redness, or edema. ENT: Nares patent. No nasal discharge, no septal abnormalities noted. Tympanic membranes are normal and external auditory canals are clear. Oropharynx with no redness, swelling, or masses, exudates, or evidence of obstruction, uvula midline. Mucous membranes moist. Neck: Trachea midline, no thyromegaly or masses palpated, and no cervical lymphadenopathy. Supple, full range of motion without nuchal rigidity, or vertebral point tenderness. No Meningismus. Chest/axilla: Normal chest wall appearance and motion. Nontender with no deformity. No lesions are appreciated. Cardiovascular: Regular rate and rhythm with a normal S1 and S2. No gallops, murmurs, or rubs. Normal PMI, no JVD. No pulse deficits. Respiratory: Lungs have equal breath sounds bilaterally, clear to auscultation and percussion. No rales, rhonchi or wheezes noted. No increased work of breathing, no retractions or nasal flaring. Back: No spinal tenderness. No costovertebral tenderness. Full range of motion. Male : Normal genitalia with no discharge or lesions. MS/ Extremity: Pulses equal, no cyanosis. Neurovascular intact. Full, normal range of motion. Neuro: Awake and alert, GCS 15, oriented to person, place, time, and situation. Cranial nerves II-XII grossly intact. Motor strength 5/5 in all extremities. Sensory grossly intact. Cerebellar exam normal. Normal gait. Psych: Awake, alert, with orientation to person, place and time. Behavior, mood, and affect are within normal limits. 18:22 Abdomen/GI: Inspection: abdomen appears normal, Bowel sounds: normal, active, all quadrants, Palpation: abdomen is soft and non-tender, in all quadrants, Rectal exam: Prostate: normal, rectal tone normal, Stool: guaiac positive, trace positive. Vital Signs: 17:08 BP 96 / 48; Pulse 79; Resp 18; Temp 97.2; Pulse Ox 98% on R/A; ph 17:49 BP 93 / 51; Pulse 76; Resp 16; Pulse Ox 98% on R/A; ph 18:30 BP 117 / 105; Pulse 71; Resp 18; Pulse Ox 98% on R/A; ph 19:00 BP 108 / 58; Pulse 70; Resp 16; Pulse Ox 99% on R/A; ph 20:00 BP 105 / 80; Pulse 78; Resp 18; Temp 98.8; Pulse Ox 100% on 2 lpm NC; mg2 21:00 BP 147 / 71; Pulse 87; Resp 18; Temp 98.8; Pulse Ox 100% on 2 lpm NC; mg2 22:00 BP 129 / 53; Pulse 84; Resp 18; Temp 98.7; Pulse Ox 100% on 2 lpm NC; mg2 23:40 BP 126 / 76; Pulse 90; Resp 18; Temp 99.3; Pulse Ox 100% on 2 lpm NC; mg2 04/18 01:50 BP 144 / 76; Pulse 92; Resp 18; Temp 99.6; Pulse Ox 100% on 3 lpm NC; mg2 03:16 BP 131 / 73; Pulse 76; Resp 17; Temp 99.3(C); Pulse Ox 100% 3 lpm ; mg2 MDM: 04/17 18:08 Patient medically screened. kerri 18:25 Differential diagnosis: gastritis, diverticulitis, hemorrhoids. Differential Diagnosis kerri altered mental status. Data reviewed: vital signs, nurses notes, lab test result(s), EKG, radiologic studies, CT scan, plain films. Data interpreted: child monitor: rate is 76 beats/min, rhythm is atrial fibrillation, Pulse oximetry: on room air is 98 %. Test interpretation: by ED physician or midlevel provider: ECG, plain radiologic studies. Counseling: I had a detailed discussion with the patient and/or guardian regarding: the historical points, exam findings, and any diagnostic results supporting the discharge/admit diagnosis, lab results, radiology results. 04/17 17:19 Order name: Basic Metabolic Panel; Complete Time: 18:15 [facility] 04/17 17:19 Order name: CBC with Diff; Complete Time: 18:15 [facility] 04/17 17:19 Order name: LFT's; Complete Time: 18:15 [facility] 04/17 17:19 Order name: Magnesium; Complete Time: 18:15 [facility] 04/17 17:19 Order name: NT PRO-BNP; Complete Time: 18:15 [facility] 04/17 17:19 Order name: PT-INR; Complete Time: 18:15 [facility] 04/17 17:19 Order name: Troponin (emerg Dept Use Only); Complete Time: 18:15 [facility] 04/17 17:20 Order name: PRBC [facility] 04/17 17:21 Order name: ABO/RH typing [facility] 04/17 17:21 Order name: Antibody Screen [facility] 04/17 17:59 Order name: CBC Smear Scan; Complete Time: 18:15 [facility] 04/17 18:20 Order name: Blood Culture Adult (2) [facility] 04/17 17:19 Order name: XRAY Chest (1 view); Complete Time: 18:15 [facility] 04/17 17:19 Order name: EKG; Complete Time: 17:20 [facility] 04/17 17:19 Order name: Cardiac monitoring; Complete Time: 17:42 [facility] 04/17 17:19 Order name: EKG - Nurse/Tech; Complete Time: 17:46 [facility] 04/17 17:19 Order name: IV Saline Lock; Complete Time: 17:42 [facility] 04/17 18:20 Order name: Lactate; Complete Time: 00:48 [facility] 04/17 18:21 Order name: CT Chest Abdomen Pelvis W/O Contrast: no iv , no oral; Complete Time: 21:54 kerri 04/17 19:18 Order name: CBC with Diff: after 2nd unit [facility] 04/17 21:17 Order name: Urine Dipstick--Ancillary (enter results); Complete Time: 00:48 ds4 04/17 23:15 Order name: COVID-19 mg2 04/18 00:32 Order name: CBC Smear Scan EDMS 04/17 17:19 Order name: Labs collected and sent; Complete Time: 17:42 kdr 04/17 17:19 Order name: O2 Per Protocol; Complete Time: 17:42 kdr 04/17 17:19 Order name: O2 Sat Monitoring; Complete Time: 17:42 kdr 04/17 18:20 Order name: Transfuse; Complete Time: 20:21 [facility] 04/17 18:30 Order name: IV Saline Lock - Large Bore; Complete Time: 20:20 [facility] 04/17 18:34 Order name: Toussaint; Complete Time: 21:11 [facility] Administered Medications: 19:50 Drug: ProTONIX 80 mg Route: IVP; Site: right forearm; mg2 20:30 Follow up: Response: No adverse reaction mg2 19:55 Drug: Benadryl 12.5 mg Route: IVP; Site: right forearm; mg2 22:05 Follow up: Response: No adverse reaction mg2 19:55 Drug: Tylenol Suppository 650 mg Route: NM; mg2 20:30 Follow up: Response: No adverse reaction mg2 20:21 Drug: Zosyn 3.375 grams Route: IVPB; Infused Over: 60 mins; Site: left forearm; mg2 21:30 Follow up: Response: No adverse reaction; IV Status: Completed infusion mg2 21:20 Drug: ProTONIX 8 mg/hr Route: IV; Rate: 25 ml/hr; Site: left forearm; mg2 04/18 03:30 Follow up: Response: No adverse reaction; IV Status: Infusion continued upon transfer mg2 Disposition: 04/17/20 18:29 Transfer ordered to [facility]. Diagnosis are Anemia, unspecified, Gastrointestinal hemorrhage, unspecified, Parkinson's disease, Dementia in other diseases classified elsewhere, Atrial fibrillation and flutter, Other pneumonia, unspecified organism, Unspecified combined systolic (congestive) and diastolic (congestive) heart failure, Pleural effusion in conditions classified elsewhere, Constipation. - Reason for transfer: Higher level of care. - Accepting physician is to [facility]. - Condition is Fair. - Problem is new. - Symptoms have improved. Signatures: Dispatcher [employer] EDPA Yair Easley MD MD cha Rittger, Kevin, MD MD kdr Hall, Patricia, RN RN Rigoberto Henderson RN RN mg2 Corrections: (The following items were deleted from the chart) 04/17 17:40 17:20 TYPE AND SCREEN+[id number].LAB.BRZ ordered. [facility] EDPA 18:34 18:29 04/17/2020 18:29 Transfer ordered to [facility]. kerri Diagnosis is Anemia, unspecified; Gastrointestinal hemorrhage, unspecified; Parkinson's disease; Dementia in other diseases classified elsewhere; Atrial fibrillation and flutter. Reason for transfer: Higher level of care. Accepting physician is to [facility]. Condition is Fair. Problem is new. Symptoms have improved. [facility] 18:40 17:47 TYPE AND SCREEN+BB.LAB.BRZ ordered. [facility] 21:55 18:34 04/17/2020 18:29 Transfer ordered to [facility]. kerri Diagnosis is Anemia, unspecified; Gastrointestinal hemorrhage, unspecified; Parkinson's disease; Dementia in other diseases classified elsewhere; Atrial fibrillation and flutter; Other pneumonia, unspecified organism; Unspecified combined systolic (congestive) and diastolic (congestive) heart failure. Reason for transfer: Higher level of care. Accepting physician is to [facility]. Condition is Fair. Problem is new. Symptoms have improved. [facility] 21:55 21:55 04/17/2020 18:29 Transfer ordered to [facility]. kerri Diagnosis is Anemia, unspecified; Gastrointestinal hemorrhage, unspecified; Parkinson's disease; Dementia in other diseases classified elsewhere; Atrial fibrillation and flutter; Other pneumonia, unspecified organism; Unspecified combined systolic (congestive) and diastolic (congestive) heart failure; Pleural effusion in conditions classified elsewhere. Reason for transfer: Higher level of care. Accepting physician is to [facility]. Condition is Fair. Problem is new. Symptoms have improved. kerri 04/18 03:59 04/17 21:55 04/17/2020 18:29 Transfer ordered to [facility]. mg2 Diagnosis is Anemia, unspecified; Gastrointestinal hemorrhage, unspecified; Parkinson's disease; Dementia in other diseases classified elsewhere; Atrial fibrillation and flutter; Other pneumonia, unspecified organism; Unspecified combined systolic (congestive) and diastolic (congestive) heart failure; Pleural effusion in conditions classified elsewhere; Constipation. Reason for transfer: Higher level of care. Accepting physician is to [facility]. Condition is Fair. Problem is new. Symptoms have improved. kerri
--- NOTE | 2020-04-17 19:39 | RAD REPORT ---
EXAM DESCRIPTION: CT - Chest Abd Pelvis Wo Con - 04/17/2020 7:29 pm CLINICAL HISTORY: Chest and abdomen pain. Abdominal distention;Cough COMPARISON: No comparisons TECHNIQUE: A limited noncontrast study was performed. All CT scans are performed using dose optimization technique as appropriate and may include automated exposure control or mA/KV adjustment according to patient size. FINDINGS: Small infiltrate is seen posterior right upper lobe. Small moderate bilateral pleural effu sions with atelectasis in both lung bases.Moderate hiatal hernia. Mild cardiomegaly.No intrathoracic adenopathy. The liver, spleen, pancreas, adrenal glands and kidneys are within normal limits. No bowel obstruction, free air, free fluid or abscess. Normal appendix. Sigmoid diverticulosis coli w ithout diverticulitis. Moderate fecal retention in the rectum. No pathologic lymphadenopathy in the a bdomen or pelvis. No worrisome osseous finding. IMPRESSION: Moderate retained stool in the rectum. Bilateral pleural effusions with atelectasis in both lung bases. Small infiltrate or focus of aspirat ion noted posterior right upper lobe.
[2020-04-17] MEDS ORDERED: PIPER/TAZO/NS 3.375gm 3.375 GM/100 ML BAG ONE (20:00)
[2020-04-17] MEDS ORDERED: ACETAMINOPHEN 325 MG TABLET ONE (20:00)
[2020-04-17] MEDS ORDERED: DIPHENHYDRAMINE 50 MG/ML VIAL ONE (20:00)
[2020-04-17] MEDS ORDERED: PANTOPRAZOLE 40 MG INJ ONE (20:00)
[2020-04-17] MEDS ORDERED: NA CHLORIDE 0.9% 250 ML ONE (20:00)
[2020-04-17 22:02] LABS: Urine Blood NEGATIVE (NEG); Urine Glucose NEGATIVE (NEG); Urine Protein NEGATIVE (NEG); Urine pH 5.5 (5.0-7.0)
[2020-04-17] MEDS ORDERED: ACETAMINOPHEN 650MG/RECT SUPP PR ONE (22:43)
[2020-04-18 00:28] LABS: Absolute Lymphocytes (CBC) 0.5 K/uL (0.7-4.9); Basophils % 0.3 % (0-1.3); Lymphocytes % 6.6 % (15.3-44.8); MPV 7.7 fL (7.6-11.3); RBC Red Blood Cell Count 2.71 M/uL (4.33-5.43)
[2020-04-18] MEDS ORDERED: NA CHLORIDE 0.9% 250 ML ONE (00:28)
[2020-04-18 00:31] LABS: Hematocrit 20.6 % (39.6-49.0)
[2020-04-18 01:02] LABS: Anisocytosis 2+; Blood Morphology Comment NOTED (NOT SEEN); Hypochromasia 1+; Platelet Estimate ADEQ; White Blood Cell Scan OK (OK)
[2020-04-18 04:16] VITALS: O2SAT 100
[2020-04-18 04:23] VITALS: BP 131/73; TEMP 99.3
--- NOTE | 2020-04-18 08:44 | EKG ---
Test Date: 2020-04-17 Test Time: 17:48:37 [employer]: LU MEASUREMENT RESULTS: Intervals: Rate: 65 IN: QRSD: 72 QT: 678 QTc: 705 Strum: P: IN: QRS: 16 T: 32 INTERPRETIVE STATEMENTS: Atrial fibrillation Nonspecific ST and T wave abnormality, probably digitalis effect Prolonged QT Abnormal ECG Compared to ECG 08/07/2019 08:48:24 Sinus rhythm no longer present Atrial premature complex(es) no longer present ST (T wave) deviation still present Electronically Signed On 04-18-20 08:43:14 CDT by Maxwell Meza
== END 2020-04-18 03:59 | disposition short-term general hospital (02) ==
LOC: ER 17:00
PROC: 30233N1 Transfusion of Nonautologous Red Blood Cells into Peripheral Vein, Percutaneous Approach (ICD-10-PCS; principal; 2020-04-18)
DX: D64.9 Anemia, unspecified (principal); J18.8 Other pneumonia, unspecified organism; I50.40 Unspecified combined systolic (congestive) and diastolic (congestive) heart failure; K59.00 Constipation, unspecified; J91.8 Pleural effusion in other conditions classified elsewhere; I48.91 Unspecified atrial fibrillation; I48.92 Unspecified atrial flutter; G20 Parkinson's disease; F02.80 Dementia in other diseases classified elsewhere, unspecified severity, without behavioral disturbance, psychotic disturbance, mood disturbance, and anxiety; E78.00 Pure hypercholesterolemia, unspecified; E11.9 Type 2 diabetes mellitus without complications; Z20.828 Contact with and (suspected) exposure to other viral communicable diseases; Z79.82 Long term (current) use of aspirin; Z91.048 Other nonmedicinal substance allergy status
CPT/HCPCS: 96365; 96368; 93005; 87040 ×2; 85025 ×2; 80048; 36415; 86900; 83735; 86850; 85610; 86901; 80076; 83605; 81003; 84484; 83880; 71250; 74176; 71045; 36430; 51702; 96375; 99285; 96366; U0002; J1200; C9113; J2543; P9016 ×3; J7050 ×2

== ENCOUNTER 2021-04-16 08:56 | Emergency (ER) | payer OTHER ==
--- NOTE | 2021-04-16 09:42 | RAD REPORT ---
EXAM DESCRIPTION: CT - Head Brain Wo Cont - 04/16/2021 9:35 am CLINICAL HISTORY: CONFUSED Headache, drowsiness COMPARISON: Head Brain Wo Cont dated 07/28/2019; Head Brain Wo Cont dated 11/03/2018 TECHNIQUE: All CT scans are performed using dose optimization technique as appropriate and may inclu de automated exposure control or mA/KV adjustment according to patient size. FINDINGS: No intracranial hemorrhage, hydrocephalus or extra-axial fluid collection.Advanced brain a trophy is present.No areas of brain edema or evidence of midline shift. The paranasal sinuses and mastoids are clear. The calvarium is intact. IMPRESSION: No acute intracranial abnormality. Advanced brain atrophy.
--- NOTE | 2021-04-16 10:25 | RAD REPORT ---
EXAM DESCRIPTION: RAD - Chest Single View - 04/16/2021 9:54 am CLINICAL HISTORY: anemia Chest pain. COMPARISON: Chest Single View dated 04/17/2020; Chest Single View dated 08/04/2019; Chest Single View dated 07/30/2019; Chest Single View dated 07/29/2019 FINDINGS: Portable technique limits examination quality. Moderately severe bilateral pulmonary opacities are present which may represent pulmonary edema or in fection/pneumonia. The heart is moderately enlarged in size. No displaced fractures.
[2021-04-16 10:36] LABS: Absolute Lymphocytes (CBC) 0.5 K/uL (0.7-4.9); Basophils % 0.7 % (0-1.3); Hematocrit 16.4 % (39.6-49.0); Lymphocytes % 9.8 % (15.3-44.8); MPV 6.9 fL (7.6-11.3); Protime INR 1.2; RBC Red Blood Cell Count 2.25 M/uL (4.33-5.43)
[2021-04-16 10:57] LABS: ALT/SGPT 18 U/L (12-78); AST/SGOT 4 U/L (15-37); Albumin 3.1 g/dL (3.4-5.0); Alkaline Phosphatase 109 U/L (45-117); BUN Blood Urea Nitrogen 22 mg/dL (7-18); Bicarbonate 25 mmol/L (21-32); Bilirubin Direct 0.2 mg/dL (0-0.2); Bilirubin Total 0.5 mg/dL (0.2-1.0); Glucose Level 192 mg/dL (74-106); Magnesium 2.4 mg/dL (1.8-2.4); NT PRO-BNP 2151 pg/mL (<450); Potassium 3.8 mmol/L (3.5-5.1); Protein, Total 7.1 g/dL (6.4-8.2); Sodium Level 140 mmol/L (136-145); Troponin (Emerg Dept Use Only) < 0.02 ng/mL (0.0-0.045)
[2021-04-16] MEDS ORDERED: NA CHLORIDE 0.9% 1,000 ML ONE (10:58)
--- NOTE | 2021-04-16 11:36 | EDPHYS ---
Physician Documentation [facility] Name: Gabriel Castillo Age: 80 yrs Sex: Male : 1940 Arrival Date: 04/16/2021 Time: 09:06 Bed 8 Private MD: ED Physician China Ambriz HPI: 04/16 09:48 This 80 yrs old Male presents to ER via EMS with complaints of ams. ma2 09:48 The patient presents with decreased mental status. Onset: The symptoms/episode ma2 began/occurred gradually, 1 day(s) ago. Associated signs and symptoms: Pertinent negatives: ataxia, confusion, diarrhea, dizziness. Current symptoms: In the emergency department the patient's symptoms are unchanged from the initial presentation. The patient has experienced similar episodes in the past. Patient was brought here for decreased level of consciousness, he does have dementia at baseline but he is usually alert and oriented, today he has not been verbal, and he is sleepy. He also reports a low hemoglobin at the halfway. No active GI bleeding.. Historical: - Allergies: 09:13 Iodine; bp - Home Meds: :13 donepezil 10 mg Oral tab 1 tab twice a day [Active]; amlodipine 5 mg tab 1 tab once bp daily [Active]; aspirin 81 mg Oral chew 1 tab once daily [Active]; atorvastatin 20 mg Oral tab 1 tab once daily [Active]; hydrochlorothiazide 50 mg Oral tab 1 tab once daily [Active]; tamsulosin 0.4 mg Oral cp24 1 cap once daily [Active]; paroxetine HCl 10 mg Oral tab 1 tab once daily [Active]; pantoprazole 40 mg Oral TbEC 1 tab once daily [Active]; omeprazole 40 mg Oral cpDR 1 cap 2 times per day [Active]; metformin 500 mg Oral Tb24 1 tab 2 times per day [Active]; lisinopril 40 mg Oral tab 1 tab once daily [Active]; - PMHx: 09:13 Dementia; Diabetes - NIDDM; High Cholesterol; tremors; Hypertension; Parkinsons; bp - Immunization history:: Adult Immunizations unknown. - Social history:: Smoking status: Patient denies any tobacco usage or history of. - Family history:: not pertinent. ROS: 09:48 Constitutional: Negative for fever, chills, and weight loss. ma2 09:48 All other systems are negative. 09:48 Unable to obtain ROS due to altered mental status. ma2 Exam: 09:48 Constitutional: This is a well developed, well nourished patient who is awake, alert, ma2 and in no acute distress. Chest/axilla: Normal chest wall appearance and motion. Nontender with no deformity. No lesions are appreciated. Cardiovascular: Regular rate and rhythm with a normal S1 and S2. No gallops, murmurs, or rubs. Normal PMI, no JVD. No pulse deficits. Respiratory: Lungs have equal breath sounds bilaterally, clear to auscultation and percussion. No rales, rhonchi or wheezes noted. No increased work of breathing, no retractions or nasal flaring. Abdomen/GI: Soft, non-tender, with normal bowel sounds. No distension or tympany. No guarding or rebound. No evidence of tenderness throughout. 09:48 Head/Face: Normocephalic, atraumatic. Eyes: Pupils equal round and reactive to light, ma2 extra-ocular motions intact. Lids and lashes normal. Conjunctiva and sclera are non-icteric and not injected. Cornea within normal limits. Periorbital areas with no swelling, redness, or edema. ENT: Nares patent. No nasal discharge, no septal abnormalities noted. Tympanic membranes are normal and external auditory canals are clear. Oropharynx with no redness, swelling, or masses, exudates, or evidence of obstruction, uvula midline. Mucous membranes moist. Neck: Trachea midline, no thyromegaly or masses palpated, and no cervical lymphadenopathy. Supple, full range of motion without nuchal rigidity, or vertebral point tenderness. No Meningismus. Back: No spinal tenderness. No costovertebral tenderness. Full range of motion. Skin: Warm, dry with normal turgor. Normal color with no rashes, no lesions, and no evidence of cellulitis. MS/ Extremity: Pulses equal, no cyanosis. Neurovascular intact. Full, normal range of motion. Neuro: Awake and alert, however he is somnolent, arousable to verbal stimuli, unable to complete neuro exam due to patient is nonverbal. He seems confused and disoriented. He has a tremor, rigidity, moving all extremities, however unable to do complete neuro exam due to patient AMS Vital Signs: 09:07 BP 130 / 70; Pulse 75; Resp 18; Temp 97.3; Pulse Ox 100% ; Weight 81.65 kg; Height 5 bp ft. 10 in. (177.80 cm); 10:31 BP 116 / 69; Pulse 72; Resp 17 S; Pulse Ox 98% on R/A; jd3 11:16 BP 126 / 81; Pulse 75; Resp 20 S; Pulse Ox 100% on R/A; jd3 12:30 BP 139 / 67; Pulse 69; Resp 17; Pulse Ox 98% on R/A; ld1 13:30 BP 140 / 55; Pulse 78; Resp 22; Pulse Ox 96% on R/A; ld1 14:00 BP 121 / 86; Pulse 88; Resp 18; Pulse Ox 99% on R/A; ld1 14:30 BP 114 / 62; Pulse 70; Resp 18; Pulse Ox 98% on R/A; ld1 15:00 BP 123 / 74; Pulse 72; Resp 18; Pulse Ox 99% on R/A; ld1 15:30 BP 131 / 75; Pulse 70; Resp 18; Pulse Ox 99% on R/A; ld1 16:00 BP 134 / 80; Pulse 72; Resp 18; Pulse Ox 99% on R/A; ld1 16:45 BP 116 / 102; Pulse 82; Resp 18; Pulse Ox 96% on R/A; ld1 17:23 BP 137 / 68; Pulse 78; Resp 18; Pulse Ox 98% on R/A; ld1 09:07 Body Mass Index 25.83 (81.65 kg, 177.80 cm) bp MDM: 09:10 Patient medically screened. ma2 09:48 Differential Diagnosis: electrolyte abnormality, hypoglycemia, intracranial bleed, ma2 pneumonia, UTI, volume depletion. 11:25 Data reviewed: vital signs, nurses notes. Counseling: I had a detailed discussion with ma2 the patient and/or guardian regarding: the historical points, exam findings, and any diagnostic results supporting the discharge/admit diagnosis, the presence of at least one elevated blood pressure reading (>120/80) during this emergency department visit, the need for outpatient follow up. Response to treatment: the patient's symptoms have markedly improved after treatment. ED course: Patient has hemoglobin less than 7, there is no active GI bleeding at this time, however he had prior GI bleeding. He will be given transfusion of 2 units packed RBC, the rest of blood components are unremarkable. Patient needs a GI evaluation, we do not have the service here patient will be transferred to higher level of care for GI consult.. 11:35 ED course: Discussed with GI Dr. Mcdonald at [facility] in [place], she ma2 accepted the patient as a consult. Patient to be admitted to hospitalist at their hospital.. 11:51 ED course: dr. Garcia accepted the patient . 04/16 09:25 Order name: Basic Metabolic Panel; Complete Time: 11:07 04/16 09:25 Order name: CBC with Diff; Complete Time: 11:04/16 09:25 Order name: LFT's; Complete Time: 11:04/16 09:25 Order name: Magnesium; Complete Time: 11:04/16 09:25 Order name: NT PRO-BNP; Complete Time: 11:07 04/16 09:25 Order name: PT-INR; Complete Time: 11:04/16 09:25 Order name: Troponin (emerg Dept Use Only); Complete Time: 11:04/16 09:25 Order name: AMMONIA; Complete Time: 11:07 ia04/16 11:16 Order name: Type And Screen jd3 04/16 11:16 Order name: Type and Screen EDMS 04/16 11:22 Order name: Bb Add On bd 04/16 11:23 Order name: Packed RBC Leukored EDMS 04/16 12:16 Order name: SARS-COV-2 RT PCR; Complete Time: 13:16 EDMS 04/16 09:25 Order name: XRAY Chest (1 view); Complete Time: 11:07 04/16 09:25 Order name: EKG; Complete Time: :04/16 09:25 Order name: Cardiac monitoring; Complete Time: :04/16 09:25 Order name: EKG - Nurse/Tech; Complete Time: : ia04/16 09:25 Order name: IV Saline Lock; Complete Time: 10:28 ia04/16 09:25 Order name: Labs collected and sent; Complete Time: :04/16 09:25 Order name: O2 Per Protocol; Complete Time: 09:35 ma2 04/16 09:25 Order name: O2 Sat Monitoring; Complete Time: 09:35 2 04/16 09:25 Order name: Urine Dipstick-Ancillary (obtain specimen); Complete Time: 11:17 2 04/16 09:25 Order name: CT Head Brain wo Cont; Complete Time: 09:43 ma2 04/16 11:12 Order name: Abdomen 1 View (KUB) XRAY ma2 Administered Medications: 10:41 Drug: NS 0.9% 1000 ml Route: IV; Rate: 125 ml/hr; Site: left forearm; jd3 11:34 Not Given (n/aa): Octreotide Infusion (50 mcg/hr) - (Octreotide 500 mcg, NS 0.9% 500 ma2 ml) IV at 50 ml/hr continuous 11:35 Not Given (n/aa): Pantoprazole 8 mg/hr IV at 25 ml/hr continuous; (Standard dilution is ma2 80 mg in 250 mL NS) 11:40 Drug: Pantoprazole 80 mg Route: IVP; Site: left antecubital; oh 11:45 Drug: Rocephin (cefTRIAXone) 1 grams Route: IV; Rate: calculated rate; Site: left oh antecubital; Disposition: 11:27 Critical Care:. ma2 Disposition Summary: 04/16/21 11:35 Transfer Ordered Transfer Location: [facility] ma2 Reason: Higher level of care ma2 Condition: Stable ma2 Problem: new ma2 Symptoms: are unchanged ma2 Accepting Physician: dr. mcdonald(04/16/21 17:36) ld1 Diagnosis - Anemia, unspecified ma2 Forms: - Medication Reconciliation Form ma2 - SBAR form ma2 Critical care time excluding procedures: 11:27 Critical care time: Bedside Care: 20 minutes, Consultation: 20 minutes, Family ma2 Intervention: 5 minutes. Total time: 45 minutes Signatures: Dispatcher [employer] Tommy Henry RN RN jd3 Peltier, Brian, RN RN bp Alzahri, Mohammad, MD MD ma2 Dibbern, Lauren, RN RN ld1 Cheryl Bacon RN RN oh Corrections: (The following items were deleted from the chart) 11:07 09:48 CORONAVIRUS+MR.LAB.BRZ ordered. EDMS EDMS 17:36 11:35 dr. mcdonald ma2 ld1
--- NOTE | 2021-04-16 11:36 | ER ---
Nurse's Notes [facility] Name: Gabriel Castillo Age: 80 yrs Sex: Male : 1940 Arrival Date: 04/16/2021 Time: 09:06 Bed 8 Private MD: Diagnosis: Anemia, unspecified Presentation: 04/16 09:07 Chief complaint: EMS states: MORE ALTERED THAN USUAL AND LOW HEMOGLOBIN, PER CA STAFF. bp Coronavirus screen: At this time, the client does not indicate any symptoms associated with coronavirus-19. Ebola Screen: No symptoms or risks identified at this time. Initial Sepsis Screen: Does the patient meet any 2 criteria? Altered Mental Status. Yes Does the patient have a suspected source of infection? No. Patient's initial sepsis screen is negative. Risk Assessment: Do you want to hurt yourself or someone else? Patient reports no desire to harm self or others. Onset of symptoms is unknown. Care prior to arrival: Glucose check: 181. 09:07 Method Of Arrival: EMS: [facility] bp 09:07 Acuity: DAVID 3 bp Triage Assessment: 09:13 General: Appears distressed, uncomfortable, Behavior is agitated, uncooperative. Pain: bp Denies pain. EENT: No deficits noted. Neuro: Level of Consciousness is listless, Oriented to none. Cardiovascular: Rhythm is atrial flutter. Respiratory: Airway is patent Respiratory effort is even, shallow, GI: No signs and/or symptoms were reported involving the gastrointestinal system. : No signs and/or symptoms were reported regarding the genitourinary system. Derm: No signs and/or symptoms reported regarding the dermatologic system. Musculoskeletal: No deficits noted. Historical: - Allergies: 09: Iodine; bp - Home Meds: :13 donepezil 10 mg Oral tab 1 tab twice a day [Active]; amlodipine 5 mg tab 1 tab once bp daily [Active]; aspirin 81 mg Oral chew 1 tab once daily [Active]; atorvastatin 20 mg Oral tab 1 tab once daily [Active]; hydrochlorothiazide 50 mg Oral tab 1 tab once daily [Active]; tamsulosin 0.4 mg Oral cp24 1 cap once daily [Active]; paroxetine HCl 10 mg Oral tab 1 tab once daily [Active]; pantoprazole 40 mg Oral TbEC 1 tab once daily [Active]; omeprazole 40 mg Oral cpDR 1 cap 2 times per day [Active]; metformin 500 mg Oral Tb24 1 tab 2 times per day [Active]; lisinopril 40 mg Oral tab 1 tab once daily [Active]; - PMHx: 09:13 Dementia; Diabetes - NIDDM; High Cholesterol; tremors; Hypertension; Parkinsons; bp - Immunization history:: Adult Immunizations unknown. - Social history:: Smoking status: Patient denies any tobacco usage or history of. - Family history:: not pertinent. Screenin:30 Abuse screen: no signs of abuse noted. Nutritional screening: No deficits noted. jd3 Tuberculosis screening: No symptoms or risk factors identified. Fall Risk IV access (20 points). Ambulatory Aid- None/Bed Rest/Nurse Assist (0 pts). Gait- Normal/Bed Rest/Wheelchair (0 pts) Mental Status- Overestimates/Forgets Limitations (15 pts.). Total Garcia Fall Scale indicates Low Risk Score (25-44 pts). Fall prevention measures have been instituted. Side Rails Up X 2 Placed close to Nursing Station Frequent Obs/Assesments occuring Family Present and informed to notify staff if they need to leave bedside. Assessment: 10:29 General: Appears in no apparent distress. comfortable, Behavior is calm, cooperative, jd3 appropriate for age. Pain: Unable to use pain scale. Does not appear to understand pain scale. FLACC scale score is 0 out of 10. Neuro: Level of Consciousness is awake, confused, Oriented to none. Cardiovascular: Capillary refill < 3 seconds Patient's skin is warm and dry. Rhythm is atrial fibrillation. Respiratory: Airway is patent Respiratory effort is even, unlabored, Respiratory pattern is regular, symmetrical, Denies cough, shortness of breath. GI: No signs and/or symptoms were reported involving the gastrointestinal system. : No signs and/or symptoms were reported regarding the genitourinary system. EENT: No signs and/or symptoms were reported regarding the EENT system. Derm: Skin is intact, Skin is dry, Skin is pale, Skin temperature is warm. Musculoskeletal: No signs and/or symptoms reported regarding the musculoskeletal system. 11:17 Reassessment: Patient appears in no apparent distress at this time. No changes from jd3 previously documented assessment. Patient and/or family updated on plan of care and expected duration. Pain level reassessed. 13:30 Reassessment: Patient appears in no apparent distress at this time. No changes from ld1 previously documented assessment. Patient and/or family updated on plan of care and expected duration. Pain level reassessed. at bedside. RR 17. 14:45 Reassessment: Patient appears in no apparent distress at this time. Patient and/or ld1 family updated on plan of care and expected duration. Pain level reassessed. 16:00 Reassessment: Patient appears in no apparent distress at this time. No changes from ld1 previously documented assessment. Patient and/or family updated on plan of care and expected duration. Pain level reassessed. 17:04 Reassessment: Patient appears in no apparent distress at this time. No changes from ld1 previously documented assessment. Patient and/or family updated on plan of care and expected duration. Pain level reassessed. Vital Signs: 09:07 BP 130 / 70; Pulse 75; Resp 18; Temp 97.3; Pulse Ox 100% ; Weight 81.65 kg; Height 5 bp ft. 10 in. (177.80 cm); 10:31 BP 116 / 69; Pulse 72; Resp 17 S; Pulse Ox 98% on R/A; jd3 11:16 BP 126 / 81; Pulse 75; Resp 20 S; Pulse Ox 100% on R/A; jd3 12:30 BP 139 / 67; Pulse 69; Resp 17; Pulse Ox 98% on R/A; ld1 13:30 BP 140 / 55; Pulse 78; Resp 22; Pulse Ox 96% on R/A; ld1 14:00 BP 121 / 86; Pulse 88; Resp 18; Pulse Ox 99% on R/A; ld1 14:30 BP 114 / 62; Pulse 70; Resp 18; Pulse Ox 98% on R/A; ld1 15:00 BP 123 / 74; Pulse 72; Resp 18; Pulse Ox 99% on R/A; ld1 15:30 BP 131 / 75; Pulse 70; Resp 18; Pulse Ox 99% on R/A; ld1 16:00 BP 134 / 80; Pulse 72; Resp 18; Pulse Ox 99% on R/A; ld1 16:45 BP 116 / 102; Pulse 82; Resp 18; Pulse Ox 96% on R/A; ld1 17:23 BP 137 / 68; Pulse 78; Resp 18; Pulse Ox 98% on R/A; ld1 09:07 Body Mass Index 25.83 (81.65 kg, 177.80 cm) bp ED Course: 09:06 Patient arrived in ED. iw 09:10 China Ambriz MD is Attending Physician. ma2 09:12 Triage completed. bp 09:35 Tommy Murray, RN is Primary Nurse. jd3 09:35 CT Head Brain wo Cont In Process Unspecified. EDMS 09:54 XRAY Chest (1 view) In Process Unspecified. EDMS 10:29 Inserted saline lock: 20 gauge in left forearm, using aseptic technique. Blood jd3 collected. 10:29 AMMONIA Sent. oh 10:29 Arm band placed on. EKG completed in triage. Results shown to MD. jd3 10:31 Patient has correct armband on for positive identification. Bed in low position. Call jd3 light in reach. Side rails up X2. Adult w/ patient. cardiac monitor on. Pulse ox on. NIBP on. 11:17 Straight cath inserted, using sterile technique, 16 Fr. Specimen obtained. Returned jd3 clear yellow urine. Patient tolerated well. 12:26 initiated transfer to [facility]. bd 13:13 Abdomen 1 View (KUB) XRAY In Process Unspecified. EDMS 14:05 spoke with Shakira at [facility], they are waiting on a bed to become bd availble. 17:35 No provider procedures requiring assistance completed. Patient transferred, IV remains ld1 in place. intact, bleeding controlled, No redness/swelling at site. Administered Medications: 10:41 Drug: NS 0.9% 1000 ml Route: IV; Rate: 125 ml/hr; Site: left forearm; jd3 11:34 Not Given (n/aa): Octreotide Infusion (50 mcg/hr) - (Octreotide 500 mcg, NS 0.9% 500 ma2 ml) IV at 50 ml/hr continuous 11:35 Not Given (n/aa): Pantoprazole 8 mg/hr IV at 25 ml/hr continuous; (Standard dilution is ma2 80 mg in 250 mL NS) 11:40 Drug: Pantoprazole 80 mg Route: IVP; Site: left antecubital; oh 11:45 Drug: Rocephin (cefTRIAXone) 1 grams Route: IV; Rate: calculated rate; Site: left oh antecubital; Outcome: 11:35 ER care complete, transfer ordered by . ma2 17:36 Transferred by ground EMS to [facility]. ld1 17:36 Condition: stable 17:36 Instructed on the need for transfer. 17:36 Patient left the ED. ld1 Signatures: Dispatcher [employer] EDMS Joyce Serrato Irene, RN RN iw Davies, Jonathon, RN RN jNish Byers RN RN bp Alzahri, Mohammad, MD MD ma2 Dibbern, Lauren, RN RN ld1 Cheryl Bacon RN RN oh Corrections: (The following items were deleted from the chart) 11:07 10:29 CORONAVIRUS+ drawn and sent. ms EDGA 11:17 11:17 Reassessment: Patient appears in no apparent distress at this time. No changes jd3 from previously documented assessment. Patient and/or family updated on plan of care and expected duration. Pain level reassessed. Patient is alert, oriented x 3, equal unlabored respirations, skin warm/dry/pink. jd3
[2021-04-16] MEDS ORDERED: CEFTRIAXONE/SWI 1gm 1 GM/10 ML SYR ONE (11:57)
[2021-04-16] MEDS ORDERED: PANTOPRAZOLE 40 MG INJ ONE (11:59)
--- NOTE | 2021-04-16 13:21 | RAD REPORT ---
EXAM DESCRIPTION: RAD - Abdomen 1 View (KUB) - 04/16/2021 1:13 pm CLINICAL HISTORY: ABD PAIN COMPARISON: Chest Single View dated 04/16/2021 FINDINGS: Nonobstructive bowel gas pattern. No acute osseous abnormality.No abnormal calcifications. Radiopaque foreign body in the epigastrium may be external to the patient. This was not present on t he same-day chest radiograph. Mild to moderate stool in the colon. Distended but nondilated small bow el. There is some suspected small bowel wall full thickening . IMPRESSION: The bowel gas pattern is nonobstructive. Question small bowel fold thickening that could represent an enteritis.
[2021-04-16] MEDS ORDERED: NA CHLORIDE 0.9% 250 ML ONE (16:54)
[2021-04-16 17:52] VITALS: TEMP 97.3
[2021-04-16 18:05] VITALS: BP 137/68; O2SAT 98
[2021-04-23 09:46] LABS: Urine Blood Negative (Negative); Urine Glucose Negative (Negative); Urine Protein Negative (Negative); Urine Specific Gravity 1.015 (1.005-1.030)
== END 2021-04-16 17:36 | disposition short-term general hospital (02) ==
LOC: ER 08:56
PROC: 30233N1 Transfusion of Nonautologous Red Blood Cells into Peripheral Vein, Percutaneous Approach (ICD-10-PCS; principal; 2021-04-16)
DX: D64.9 Anemia, unspecified (principal); F03.90 Unspecified dementia, unspecified severity, without behavioral disturbance, psychotic disturbance, mood disturbance, and anxiety; E11.9 Type 2 diabetes mellitus without complications; E78.00 Pure hypercholesterolemia, unspecified; I10 Essential (primary) hypertension; G20 Parkinson's disease; F02.80 Dementia in other diseases classified elsewhere, unspecified severity, without behavioral disturbance, psychotic disturbance, mood disturbance, and anxiety
CPT/HCPCS: 93005; 85025; 80048; 36415; 82140; 86900; 83735; 86850; 85610; 86901; 80076; 81003; 84484; 83880; 70450; 74018; 71045; 51702; 96375; 96374; 99285; 36430; U0003; C9113; J0696; P9016 ×2; J7050; J7030

== ENCOUNTER 2022-01-17 18:00 | Emergency (ER) | payer OTHER ==
--- OUTSIDE RECORDS SUMMARY | 2022-01-17 18:03 | XMS REPORT | Continuity of Care Document ---
:1940 Author Organization [facility] t Address [address] [place] [address] Care Team Providers Name Role Phone ROSLYN MAYFIELD Attending Clinician Unavailable SILVIO PINA Attending Clinician Unavailable Darian-Nnacy_J_AH Attending Clinician Unavailable ROSLYN MAYFIELD Admitting Clinician Unavailable SILVIO PINA Admitting Clinician Unavailable ALISHAOPHELIA Admitting Clinician Unavailable Ana WILSON Admitting Clinician Unavailable Shay_Chaz_AH Admitting Clinician Unavailable Payers Payer Name Policy Type Policy Number Effective Date Expiration Date S rhoda MEDICARE A B [id number] 2007 00:00:00 MEDICAID [employer] [id number] 2020 00:00:00 [facility] [place] - [id number] [employer] (MEDICARE 00:00:00 REPLACEMENT/ADVANTA GE - HMO) Problems Condition Condition Condition Status Onset Resolution Last Treating Co mments Source Name Details Category Date Date Treatment Clinician Date R31.0 Diagnosis Active 2015-08-08 Mem oria GROSS -08 16:01:00 l HEMATURIA R31.0 00:00: [place] n GROSS 00 HEMATURIA Active 08/02/2015 [facility] COPD Diagnosis Active 2014-072015-06-24 Mem oria 08-17 17:18:00 l COPD 00:00: [place] 00 Active 06/17/2015 [facility] MEMORY Diagnosis Active 2014-072015-05-13 Mem oria DISTURBANC -14 17:45:00 l E MEMORY 00:00: [place] DISTURBANC 00 E Active 05/08/2015 [facility] 185 Diagnosis Active 2014-01-31 Mem oria 01-31 07:34:00 l 185 00:00: [place] 00 Active 01/31/2014 [facility] 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 [facility] CHRONIC Diagnosis Active 2015-06-24 Me moria OBSTRUCTIV 17:18:00 l E CHRONIC [place] PULMONARY OBSTRUCTIV DISEASE, U E PULMONARY DISEASE, U Active [facility] GROSS Diagnosis Active 2015-08-08 Mem oria HEMATURIA 16:01:00 l GROSS [place] HEMATURIA Active [facility] Allergies, Adverse Reactions, Alerts Allergy Allergy Status Severity Reaction(s) Onset Inactive Treating Comm ents Source Name Type Date Date Clinician IODINE Allergy [facility] NG PRODUCTS Medications Ordered Filled Start Stop Current Ordering Indication Dosage Frequency Signature Comments Components Source Medication Medication Date Date Medication? Clinician (SIG) Name Name Omnipaque No Notes: Memori a 300 1-15 (Same l 01:00: as:Omnipaq [place] 00 ue 300). Vital Signs Vital Name Observation Time Observation Value Comments Source BMI [facility] 2015-06[facility]24 [facility] Height 2015-06-24 18:05:00 167.64 cm [facility] Weight 2015-06-24 18:05:00 [facility] Procedures This patient has no known procedures. Encounters Start End Encounter Admission Attending Care Care Encounter Source Date/Time Date/Time Type Type Clinicians Facility Department ID 2021-05-04 Inpatient ER [facility] Gastro [id number] SLE 13:29:25 TAYO 2020-04-18 Inpatient ER [facility] Gastro [id number] SLE 05:05:00 IGNACIA 2019-10-23 2019-10-23 Outpatient [place] VFP VFP [phone] [facility] 11:24:00 11:24:00 _J_AH [id number] Family Practic e 2019-10-23 2019-10-23 Outpatient [place] VFP VFP [phone] [facility] 11:24:00 11:24:00 _J_AH 19719 Family Practic e 2016-09-09 2016-09-09 Outpatient MHIE MHIE [id number] Memoria 09:45:00 09:45:00 00 l Th[place] 2015-08-08 2015-08-09 [facility] [id number] Memoria 22:00:00 05:59:00 r [place] 02 l [facility] 2015-06-24 2015-06-25 Outpatient nullFlavo [facility] [id number] Memoria 17:25:00 05:59:00 r [place] 01 l [facility] 2015-05-13 2015-05-14 [facility] [id number] Memoria 18:45:00 04:59:00 r [place] 00 l [facility] 2014-01-01 2014-01-31 OP [facility] [id number] Memoria 16:31:00 04:59:00 Recurring r [place] 01 l [facility] Results Test Description Test Time Test Comments Results Result Comments Source HEMOGLOBIN AND HEMATOCRIT 2021-04-17 18:03:21 Test Item Value Reference Range Interpretation Comme nts HEMOGLOBIN (BEAKER) (test code = 410) 9.0 GM/DL 13.7-17.5 L HEMATOCRIT (BEAKER) (test code = 411) 29.3 % 40.1-51.0 L Memorial Marker Designer ID - [id number] 11:12:07 Test Item Value Reference Range Interpretation Comments FERRITIN (BEAKER) (test code = 16.49 ng/mL 5.00-275.00 361) Memorial Marker Designer ID - NANCY, TIBC, % SAT. (WITHOUT FERRITIN)2021-04-17 10:52:15 Test Item Value Reference Range Interpretation Comments IRON (BEAKER) (test code = 547) 33.0 ug/dL 40.0-160.0 L TOTAL IRON BINDING CAPACITY 280 ug/dL 250-450 (BEAKER) (test code = 769) IRON % SATURATION (2) (BEAKER) 12 % 20-55 L (test code = 2590) Memorial Marker Designer ID - SWETHABASIC METABOLIC [id number] 10:15:24 Test Item Value Reference Range Interpretation Comments SODIUM (BEAKER) 138 meq/L 136-145 (test code = 381) POTASSIUM (BEAKER) 3.6 meq/L 3.5-5.1 (test code = 379) CHLORIDE (BEAKER) 111 meq/L 98-107 H (test code = 382) CO2 (BEAKER) (test 20 meq/L 22-29 L code = 355) BLOOD UREA NITROGEN 14 mg/dL 7-21 (BEAKER) (test code = 354) CREATININE (BEAKER) 0.93 mg/dL 0.57-1.25 (test code = 358) GLUCOSE RANDOM 96 mg/dL 70-105 (BEAKER) (test code = 652) CALCIUM (BEAKER) 7.2 mg/dL 8.4-10.2 L (test code = 697) EGFR (BEAKER) (test 79 mL/min/1.73 ESTIMA JEFF GFR IS code = 1092) sq m NOT ACCURATE CREATININE CLEARANCE IN PREDICTING GLOMERULAR FILTRATION RATE . ESTIMATED GFR I S NOT APPLICABLE FOR DIALYSIS PATIEN TS. Memorial Marker Designer ID Ye SORENSEN [id number] 09:53:07 Test Item Value Reference Range Interpretation Comments MAGNESIUM (BEAKER) (test code = 2.0 mg/dL 1.6-2.6 627) Memorial Marker Designer ID Ye SORENSEN LCBC W/PLT COUNT & AUTO [id number] 09:13:36 Test Item Value Reference Range Interpretation Comments WHITE BLOOD CELL COUNT (BEAKER) 4.9 K/ L 3.5-10.5 (test code = 775) RED BLOOD CELL COUNT (BEAKER) 2.85 M/ L 4.63-6.08 L (test code = 761) HEMOGLOBIN (BEAKER) (test code = 6.8 GM/DL 13.7-17.5 L 410) HEMATOCRIT (BEAKER) (test code = 23.2 % 40.1-51.0 L 411) MEAN CORPUSCULAR VOLUME (BEAKER) 81.4 fL 79.0-92.2 (test code = 753) MEAN CORPUSCULAR HEMOGLOBIN 23.9 pg 25.7-32.2 L (BEAKER) (test code = 751) MEAN CORPUSCULAR HEMOGLOBIN CONC 29.3 GM/DL 32.3-36.5 L (BEAKER) (test code = 752) RED CELL DISTRIBUTION WIDTH 16.0 % 11.6-14.4 H (BEAKER) (test code = 412) PLATELET COUNT (BEAKER) (test 172 K/CU MM 150-450 code = 756) MEAN PLATELET VOLUME (BEAKER) 8.8 fL 9.4-12.4 L (test code = 754) NUCLEATED RED BLOOD CELLS 0 /100 WBC 0-0 (BEAKER) (test code = 413) NEUTROPHILS RELATIVE PERCENT 76 % (BEAKER) (test code = 429) LYMPHOCYTES RELATIVE PERCENT 11 % (BEAKER) (test code = 430) MONOCYTES RELATIVE PERCENT 9 % (BEAKER) (test code = 431) EOSINOPHILS RELATIVE PERCENT 3 % (BEAKER) (test code = 432) BASOPHILS RELATIVE PERCENT 1 % (BEAKER) (test code = 437) NEUTROPHILS ABSOLUTE COUNT 3.70 K/ L 1.78-5.38 (BEAKER) (test code = 670) LYMPHOCYTES ABSOLUTE COUNT 0.51 K/ L 1.32-3.57 L (BEAKER) (test code = 414) MONOCYTES ABSOLUTE COUNT (BEAKER) 0.43 K/ L 0.30-0.82 (test code = 415) EOSINOPHILS ABSOLUTE COUNT 0.16 K/ L 0.04-0.54 (BEAKER) (test code = 416) BASOPHILS ABSOLUTE COUNT (BEAKER) 0.03 K/ L 0.01-0.08 (test code = 417) IMMATURE GRANULOCYTES-RELATIVE 1 % 0-1 PERCENT (BEAKER) (test code = 2801) SARS-COV2/RT-PCR ([facility])2021-04-17 07:56:12 Test Item Value Reference Range Interpretation Comments SARS-COV2/RT-PCR Negative Negative The SARS-Co V-2 target (test code = nucleic acids a re not [id number]) detected in thi s specimen. Negative result s do not preclude SARS-C oV-2 infection and s hould not be used as the yeimy e basis for patient managem ent decisions. Nega tive results must be combine d with clinical observ ations, patient history , and epidemiological information. A false negativ e result may occur if a spec imen is improperly josh ected, transported or handled. This SARS CoV-2 test is a rapid, real-cedric e RT-PCR test intended for th e qualitative detection of nu cleic acid from SARS-CoV-2 in a nasopharyngeal swab specimen collected from individuals suspected of CO VID-19 by their healthcar e provider. This test has been authorized by FDA under an EUA for use by authorized laboratories. This test is only authorized for the duration of the declaration that circumstances exist justifying the authorization of emergency use of in vitro diagnostic tests for detection and/or diagnosis of COVID-19 under Section 564(b)(1) of the Federal Food, Drug and Cosmetic Act, 21 U.S.C. 360bbb- 3(b)(1), unless the authorization is terminated or revoked sooner. Fact Sheet for Healthcare Providers: https://www.[employer]Tempered Mind/Documents/Xpert%20Xpress%20SARS%20CoV-2/Fact%20Sheets/302-3802%20SARS-COV -2%20HEALTHCARE%20PROVIDERS%20FACT%20SHEET.pdf Fact Sheet for Healthcare Patients: https://www.[employer]/Documents/Xpert %20Xpress%20SARS%20CoV-2/Fact%20Sheets/302-3801%58LMUX-WEO-8%20PATIENT%20FACT%20 SHEET.pdfB-TYPE NATRIURETIC FACTOR (BNP)2021-04-17 00:35:57 Test Item Value Reference Range Interpretation Comments B-TYPE NATRIURETIC PEPTIDE (BEAKER) 335 pg/mL 0-100 H (test code = 700) Memorial Marker Designer ID - BSCOMPREHENSIVE METABOLIC [id number] 00:30:06 Test Item Value Reference Range Interpretation Comments TOTAL PROTEIN 6.4 gm/dL 6.0-8.3 (BEAKER) (test code = 770) ALBUMIN (BEAKER) 3.3 g/dL 3.5-5.0 L (test code = 1145) ALKALINE PHOSPHATASE 98 U/L 40-150 (BEAKER) (test code = 346) BILIRUBIN TOTAL 1.1 mg/dL 0.2-1.2 (BEAKER) (test code = 377) SODIUM (BEAKER) (test 137 meq/L 136-145 code = 381) POTASSIUM (BEAKER) 4.1 meq/L 3.5-5.1 (test code = 379) CHLORIDE (BEAKER) 107 meq/L 98-107 (test code = 382) CO2 (BEAKER) (test 25 meq/L 22-29 code = 355) BLOOD UREA NITROGEN 17 mg/dL 7-21 (BEAKER) (test code = 354) CREATININE (BEAKER) 1.10 mg/dL 0.57-1.25 (test code = 358) GLUCOSE RANDOM 120 mg/dL 70-105 H (BEAKER) (test code = 652) CALCIUM (BEAKER) 7.9 mg/dL 8.4-10.2 L (test code = 697) AST (SGOT) (BEAKER) 11 U/L 5-34 (test code = 353) ALT (SGPT) (BEAKER) 12 U/L 6-55 (test code = 347) EGFR (BEAKER) (test 65 mL/min/1.73 ESTIMA JEFF GFR IS code = 1092) sq m NOT ACCURATE CREATININE CLEARANCE IN PREDICTING GLOMERULAR FILTRATION RATE . ESTIMATED GFR I S NOT APPLICABLE FOR DIALYSIS PATIEN TS. Memorial Marker Designer ID - [id number] 00:28:52 Test Item Value Reference Range Interpretation Comments MAGNESIUM (BEAKER) (test code = 2.2 mg/dL 1.6-2.6 627) Memorial Marker Designer ID - BSLACTIC ACID, [id number] 00:22:53 Test Item Value Reference Range Interpretation Comments LACTATE BLOOD VENOUS (2) (BEAKER) 0.68 mmol/L 0.50-2.20 (test code = 2872) Memorial Marker Designer ID - [id number] 00:19:55 Test Item Value Reference Range Interpretation Comments PARTIAL THROMBOPLASTIN TIME 36.3 seconds 22.5-36.0 H (BEAKER) (test code = 760) PROTHROMBIN TIME/[id number] 00:19:12 Test Item Value Reference Range Interpretation Comments PROTIME (BEAKER) 15.4 seconds 11.9-14.2 H (test code = 759) INR (BEAKER) (test 1.24 See_Comment [Automat ed message] code = 370) The system [employer] generated this result transmitted ref erence range: <=5.90. The reference range was not used to int erpret this result as normal/abnormal . RECOMMENDED COUMADIN/WARFARIN INR THERAPY RANGESSTANDARD DOSE: 2.0 - 3.0 Includes: PROPHYLAXIS forvenous thrombosis, systemic embolization; TREATMENT for venous thrombosis and/or pulmonary embolus.HIGH RISK: Target INR is 2.5-3.5 for patients with mechanical heart valves.CBC W/PLT COUNT & AUTO DIFFERENTIAL 2021-04-17 00:15:41 Test Item Value Reference Range Interpretation Comments WHITE BLOOD CELL COUNT (BEAKER) 5.4 K/ L 3.5-10.5 (test code = 775) RED BLOOD CELL COUNT (BEAKER) 2.71 M/ L 4.63-6.08 L (test code = 761) HEMOGLOBIN (BEAKER) (test code = 6.3 GM/DL 13.7-17.5 L 410) HEMATOCRIT (BEAKER) (test code = 22.1 % 40.1-51.0 L 411) MEAN CORPUSCULAR VOLUME (BEAKER) 81.5 fL 79.0-92.2 (test code = 753) MEAN CORPUSCULAR HEMOGLOBIN 23.2 pg 25.7-32.2 L (BEAKER) (test code = 751) MEAN CORPUSCULAR HEMOGLOBIN CONC 28.5 GM/DL 32.3-36.5 L (BEAKER) (test code = 752) RED CELL DISTRIBUTION WIDTH 16.1 % 11.6-14.4 H (BEAKER) (test code = 412) PLATELET COUNT (BEAKER) (test 187 K/CU MM 150-450 code = 756) MEAN PLATELET VOLUME (BEAKER) 9.5 fL 9.4-12.4 (test code = 754) NUCLEATED RED BLOOD CELLS 0 /100 WBC 0-0 (BEAKER) (test code = 413) NEUTROPHILS RELATIVE PERCENT 78 % (BEAKER) (test code = 429) LYMPHOCYTES RELATIVE PERCENT 9 % (BEAKER) (test code = 430) MONOCYTES RELATIVE PERCENT 9 % (BEAKER) (test code = 431) EOSINOPHILS RELATIVE PERCENT 3 % (BEAKER) (test code = 432) BASOPHILS RELATIVE PERCENT 1 % (BEAKER) (test code = 437) NEUTROPHILS ABSOLUTE COUNT 4.25 K/ L 1.78-5.38 (BEAKER) (test code = 670) LYMPHOCYTES ABSOLUTE COUNT 0.51 K/ L 1.32-3.57 L (BEAKER) (test code = 414) MONOCYTES ABSOLUTE COUNT (BEAKER) 0.46 K/ L 0.30-0.82 (test code = 415) EOSINOPHILS ABSOLUTE COUNT 0.15 K/ L 0.04-0.54 (BEAKER) (test code = 416) BASOPHILS ABSOLUTE COUNT (BEAKER) 0.03 K/ L 0.01-0.08 (test code = 417) IMMATURE GRANULOCYTES-RELATIVE 1 % 0-1 PERCENT (BEAKER) (test code = 2801) POCT-GLUCOSE [id number] 17:51:00 Test Item Value Reference Range Interpretation Comments POC-GLUCOSE METER 123 mg/dL 70-110 H : TESTED A T [facility] 6720 (BEAKER) (test code = [facility], 1538) 11910: Memorial Marker Designer/Techni effie ID = [id number] for KENZIE EUNICE BEL POCT-GLUCOSE [id number] 12:33:00 Test Item Value Reference Range Interpretation Comments POC-GLUCOSE METER 132 mg/dL 70-110 H : TESTED A T [facility] 6720 (BEAKER) (test code = [facility], 1538) 59708: Memorial Marker Designer/Techni effie ID = [id number] for KENZIE, EUNICE BEL POCT-GLUCOSE [id number] 08:26:00 Test Item Value Reference Range Interpretation Comments POC-GLUCOSE METER 96 mg/dL 70-110 : TESTED A T [facility] 6720 (BEAKER) (test code = [facility], 1538) 79965: Memorial Marker Designer/Techni effie ID = [id number] for HARVINDER CHURCHILLYOSudarshan ERNESTINA TSH/FREE T4 IF [id number] 07:11:00 Test Item Value Reference Range Interpretation Comments THYROID STIMULATING HORMONE 1.081 uIU/mL 0.350-4.940 (BEAKER) (test code = 772) Memorial Marker Designer ID - EDASIVITAMIN B12 AND [id number] 07:11:00 Test Item Value Reference Range Interpretation Comments VITAMIN B12 (BEAKER) (test code = 259 pg/mL 213-816 774) FOLATE (BEAKER) (test code = 362) 8.80 ng/mL >=7.00 Memorial Marker Designer ID - EDASIIRON, TIBC, % SAT. (WITHOUT FERRITIN)2020-04-19 07:03:00 Test Item Value Reference Range Interpretation Comments IRON (BEAKER) (test code = 547) 31.0 ug/dL 40.0-160.0 L TOTAL IRON BINDING CAPACITY 380 ug/dL 250-450 (BEAKER) (test code = 769) IRON % SATURATION (2) (BEAKER) 8 % 20-55 L (test code = 2590) Memorial Marker Designer ID - [id number] 06:46:00 Test Item Value Reference Range Interpretation Comments MAGNESIUM (BEAKER) (test code = 1.9 mg/dL 1.6-2.6 627) Memorial Marker Designer ID - EDASIBASIC METABOLIC [id number] 06:46:00 Test Item Value Reference Range Interpretation Comments SODIUM (BEAKER) (test 140 meq/L 136-145 code = 381) POTASSIUM (BEAKER) 3.5 meq/L 3.5-5.1 (test code = 379) CHLORIDE (BEAKER) 107 meq/L 98-107 (test code = 382) CO2 (BEAKER) (test 26 meq/L 22-29 code = 355) BLOOD UREA NITROGEN 16 mg/dL 7-21 (BEAKER) (test code = 354) CREATININE (BEAKER) 1.06 mg/dL 0.57-1.25 (test code = 358) GLUCOSE RANDOM 95 mg/dL 70-105 (BEAKER) (test code = 652) CALCIUM (BEAKER) 7.8 mg/dL 8.4-10.2 L (test code = 697) EGFR (BEAKER) (test INSUFFIC IENT CLINICAL code = 1092) DATA TO CALCULA TE ESTIMATED GFR. Memorial Marker Designer ID - EDASICBC W/PLT COUNT & AUTO [id number] 05:51:00 Test Item Value Reference Range Interpretation Comments WHITE BLOOD CELL COUNT (BEAKER) 5.4 K/ L 3.5-10.5 (test code = 775) RED BLOOD CELL COUNT (BEAKER) 3.29 M/ L 4.63-6.08 L (test code = 761) HEMOGLOBIN (BEAKER) (test code = 8.2 GM/DL 13.7-17.5 L 410) HEMATOCRIT (BEAKER) (test code = 26.9 % 40.1-51.0 L 411) MEAN CORPUSCULAR VOLUME (BEAKER) 81.8 fL 79.0-92.2 (test code = 753) MEAN CORPUSCULAR HEMOGLOBIN 24.9 pg 25.7-32.2 L (BEAKER) (test code = 751) MEAN CORPUSCULAR HEMOGLOBIN CONC 30.5 GM/DL 32.3-36.5 L (BEAKER) (test code = 752) RED CELL DISTRIBUTION WIDTH 17.8 % 11.6-14.4 H (BEAKER) (test code = 412) PLATELET COUNT (BEAKER) (test 122 K/CU MM 150-450 L code = 756) MEAN PLATELET VOLUME (BEAKER) 9.4 fL 9.4-12.4 (test code = 754) NUCLEATED RED BLOOD CELLS 0 /100 WBC 0-0 (BEAKER) (test code = 413) NEUTROPHILS RELATIVE PERCENT 67 % (BEAKER) (test code = 429) LYMPHOCYTES RELATIVE PERCENT 17 % (BEAKER) (test code = 430) MONOCYTES RELATIVE PERCENT 14 % (BEAKER) (test code = 431) EOSINOPHILS RELATIVE PERCENT 1 % (BEAKER) (test code = 432) BASOPHILS RELATIVE PERCENT 1 % (BEAKER) (test code = 437) NEUTROPHILS ABSOLUTE COUNT 3.65 K/ L 1.78-5.38 (BEAKER) (test code = 670) LYMPHOCYTES ABSOLUTE COUNT 0.91 K/ L 1.32-3.57 L (BEAKER) (test code = 414) MONOCYTES ABSOLUTE COUNT (BEAKER) 0.77 K/ L 0.30-0.82 (test code = 415) EOSINOPHILS ABSOLUTE COUNT 0.05 K/ L 0.04-0.54 (BEAKER) (test code = 416) BASOPHILS ABSOLUTE COUNT (BEAKER) 0.03 K/ L 0.01-0.08 (test code = 417) IMMATURE GRANULOCYTES-RELATIVE 0 % 0-1 PERCENT (BEAKER) (test code = 2801) POCT-GLUCOSE [id number] 05:26:00 Test Item Value Reference Range Interpretation Comments POC-GLUCOSE METER 96 mg/dL 70-110 : TESTED A T [facility] 6720 (BEAKER) (test code = [facility], 1538) 14824: Memorial Marker Designer/Techni effie ID = [id number] for GARC IA, NIA POCT-GLUCOSE [id number] 01:41:00 Test Item Value Reference Range Interpretation Comments POC-GLUCOSE METER 118 mg/dL 70-110 H : TESTED A T [facility] 6720 (BEAKER) (test code [facility], = 1538) 79721: Memorial Marker Designer/Techni effie ID = [id number] for GARC IA, NIA POCT-GLUCOSE [id number] 21:08:00 Test Item Value Reference Range Interpretation Comments POC-GLUCOSE METER 118 mg/dL 70-110 H : TESTED A T [facility] 6720 (BEAKER) (test code = D[facility]IS Heaton [facility], 1538) 84510: Memorial Marker Designer/Techni effie ID = [id number] for MARY CARMEN PABLO POCT-GLUCOSE [id number] 12:41:00 Test Item Value Reference Range Interpretation Comments POC-GLUCOSE METER 108 mg/dL 70-110 : TESTED A T [facility] 6720 (BEAKER) (test code MITZI [facility], = 1538) 04164: Memorial Marker Designer/Techni effie ID = [id number] for LUCÍA SCHULTE SARS-COV2/RT-PCR ([facility])2020-04-18 12:24:00 Test Item Value Reference Range Interpretation Comments SARS-COV2/RT-PCR (test Negative Not Detected, Negative, code = 3389412) See external report for linked test SARS-COV-2 PERFORMING LAB [facility] (test code = 4452103) Negative result for this test determines that SARS-CoV-2 RNA was not present in the specimen above the Limit of Detection (LOD). However, Negative results do not preclude SARS-CoV-2 infection and should not be used as the sole basis for treatment or patient management decisions. Negative results mustbe combined with clinical observations, patient history, and epidemiological information. A false negative result may occur if a specimen is improperly collected, transported or handled. A false negative result should be considered if patient's recent exposures or clinical presentation indicate that COVID-19 (SARS-CoV-2) is likely and diagnostic tests for other causes of illness are negative. Re-testing should be considered in cases of suspected false negatives.The limit of detection for this assay is 800 copies/mL.This SARS CoV-2 test is a real-time RT-PCR test intended for the qualitative detection of nucleic acid from SARS-CoV-2 in a nasopharyngeal swab specimen collected from individuals susp ected of COVID-19 by their healthcare provider.This test has not been Food and Drug Administration (FDA) cleared or approved. This is a modified version of an approved Emergency Use Authorization (EUA) and is in the process of review by the FDA. Once authorized by the FDA, the issued EUA will be effective until the declaration that circumstances exist justifying the authorization of the emergency use of in vitro diagnostic tests for detection and/or diagnosis of COVID-19 is terminated under Section 564(b)(2) of the Act or the EUA is revoked under Section 564(g) of the Act.Fact Sheet for Healthcare Providers:https://www.[employer]./sites/default/files/product/documents/Fact_Shee m_GL_Jdcwwmlew_Ptqm_LNZX-LtX-2.pdfFact Sheet for Healthcare Patients:https://www.UB./sites/default/files/product/ documents/Sbnx_Yrohm_Nosfbkal_Jxny_YVVL-FtF-2.pdfPerforming Laboratory:[place] [id number], [place] [address]ZDDP-CYEDPEE METER 2020-04-18 09:02:00 Test Item Value Reference Range Interpretation Comments POC-GLUCOSE METER 111 mg/dL 70-110 H : Notified RN/MD: TESTED (BEAKER) (test code AT [facility] 67 MITZI = 1538) [facility], [facility] 30: Memorial Marker Designer/Techni effie ID = [id number] for LUCÍA SCHULTE BASIC METABOLIC [id number] 08:09:00 Test Item Value Reference Range Interpretation Comments SODIUM (BEAKER) (test 139 meq/L 136-145 code = 381) POTASSIUM (BEAKER) 3.8 meq/L 3.5-5.1 (test code = 379) CHLORIDE (BEAKER) 107 meq/L 98-107 (test code = 382) CO2 (BEAKER) (test 24 meq/L 22-29 code = 355) BLOOD UREA NITROGEN 19 mg/dL 7-21 (BEAKER) (test code = 354) CREATININE (BEAKER) 1.01 mg/dL 0.57-1.25 (test code = 358) GLUCOSE RANDOM 105 mg/dL 70-105 (BEAKER) (test code = 652) CALCIUM (BEAKER) 7.7 mg/dL 8.4-10.2 L (test code = 697) EGFR (BEAKER) (test INSUFFIC IENT CLINICAL code = 1092) DATA TO CALCULA TE ESTIMATED GFR. Memorial Marker Designer ID - GERALD [id number] 07:55:00 Test Item Value Reference Range Interpretation Comments MAGNESIUM (BEAKER) (test code = 1.9 mg/dL 1.6-2.6 627) Memorial Marker Designer ID - GERALD MHEPATIC FUNCTION [id number] 07:55:00 Test Item Value Reference Range Interpretation Comments TOTAL PROTEIN (BEAKER) (test code = 5.7 gm/dL 6.0-8.3 L 770) ALBUMIN (BEAKER) (test code = 1145) 3.5 g/dL 3.5-5.0 BILIRUBIN TOTAL (BEAKER) (test code 1.3 mg/dL 0.2-1.2 H = 377) BILIRUBIN DIRECT (BEAKER) (test 0.7 mg/dL 0.1-0.5 H code = 706) ALKALINE PHOSPHATASE (BEAKER) (test 75 U/L 40-150 code = 346) AST (SGOT) (BEAKER) (test code = 8 U/L 5-34 353) ALT (SGPT) (BEAKER) (test code = 11 U/L 6-55 347) Memorial Marker Designer ID - GERALD MPOCT-GLUCOSE [id number] 06:42:00 Test Item Value Reference Range Interpretation Comments POC-GLUCOSE METER 114 mg/dL 70-110 H : [facility] ([facility]ER) (test code [facility], = 1538) [address]: Memorial Marker Designer/Techni effie ID = [id number] for NIA MEGN PROTHROMBIN [id number] 06:41:00 Test Item Value Reference Range Interpretation Comments PROTIME (BEAKER) (test code = 15.5 seconds 11.9-14.2 H 759) INR (BEAKER) (test code = 370) 1.26 <=5.90 Effective 12/21/2018: PT Reference Range ChangeNew: 11.9-14.2 Previous: 11.7- 14.7RECOMMENDED COUMADIN/WARFARIN INR THERAPY RANGESSTANDARD DOSE: 2.0-3.0 Includes: PROPHYLAXIS for venous thrombosis, systemic embolization; TREATMENT for venous thrombosis and/or pulmonary embolus.HIGH RISK: Target INR is2.5-3.5 for patients wiht mechanical heart valves.CBC W/PLT COUNT & AUTO [id number] 06:32:00 Test Item Value Reference Range Interpretation Comments WHITE BLOOD CELL COUNT (BEAKER) 7.7 K/ L 3.5-10.5 (test code = 775) RED BLOOD CELL COUNT (BEAKER) 2.82 M/ L 4.63-6.08 L (test code = 761) HEMOGLOBIN (BEAKER) (test code = 6.9 GM/DL 13.7-17.5 L 410) HEMATOCRIT (BEAKER) (test code = 22.9 % 40.1-51.0 L 411) MEAN CORPUSCULAR VOLUME (BEAKER) 81.2 fL 79.0-92.2 (test code = 753) MEAN CORPUSCULAR HEMOGLOBIN 24.5 pg 25.7-32.2 L (BEAKER) (test code = 751) MEAN CORPUSCULAR HEMOGLOBIN CONC 30.1 GM/DL 32.3-36.5 L (BEAKER) (test code = 752) RED CELL DISTRIBUTION WIDTH 17.6 % 11.6-14.4 H (BEAKER) (test code = 412) PLATELET COUNT (BEAKER) (test 132 K/CU MM 150-450 L code = 756) MEAN PLATELET VOLUME (BEAKER) 10.0 fL 9.4-12.4 (test code = 754) NUCLEATED RED BLOOD CELLS 0 /100 WBC 0-0 (BEAKER) (test code = 413) NEUTROPHILS RELATIVE PERCENT 85 % (BEAKER) (test code = 429) LYMPHOCYTES RELATIVE PERCENT 5 % (BEAKER) (test code = 430) MONOCYTES RELATIVE PERCENT 9 % (BEAKER) (test code = 431) EOSINOPHILS RELATIVE PERCENT 0 % (BEAKER) (test code = 432) BASOPHILS RELATIVE PERCENT 0 % (BEAKER) (test code = 437) NEUTROPHILS ABSOLUTE COUNT 6.49 K/ L 1.78-5.38 H (BEAKER) (test code = 670) LYMPHOCYTES ABSOLUTE COUNT 0.38 K/ L 1.32-3.57 L (BEAKER) (test code = 414) MONOCYTES ABSOLUTE COUNT (BEAKER) 0.70 K/ L 0.30-0.82 (test code = 415) EOSINOPHILS ABSOLUTE COUNT 0.01 K/ L 0.04-0.54 L (BEAKER) (test code = 416) BASOPHILS ABSOLUTE COUNT (BEAKER) 0.02 K/ L 0.01-0.08 (test code = 417) IMMATURE GRANULOCYTES-RELATIVE 1 % 0-1 PERCENT (BEAKER) (test code = 2801) CHEM [id number] 00:01:00 Test Item Value Reference Range Interpretation Comments eGFR (test code = eGFR) 74 [id number]00 Test Item Value Reference Range Interpretation Comments POC Creatinine (test code = POC 1.0 0.5-1.4 Creatinine) [facility]
--- NOTE | 2022-01-17 19:35 | RAD REPORT ---
EXAM DESCRIPTION: CT - Ct Stroke Brain Wo Cont - 01/17/2022 7:24 pm CLINICAL HISTORY: drawsy COMPARISON: Head Brain Wo Cont dated 04/16/2021; Head Brain Wo Cont dated 07/28/2019 TECHNIQUE: All CT scans are performed using dose optimization technique as appropriate and may inclu de automated exposure control or mA/KV adjustment according to patient size. FINDINGS: No intracranial hemorrhage, hydrocephalus or extra-axial fluid collection.No areas of brai n edema or evidence of midline shift. Age advanced cerebral atrophy. Mild chronic small vessel ischem ic changes. Ex vacuo dilatation of the ventricles. . The paranasal sinuses and mastoids are clear. The calvarium is intact. IMPRESSION: No acute intracranial abnormality. Age advanced cerebral atrophy.
[2022-01-17 19:56] LABS: Absolute Lymphocytes (CBC) 0.8 K/uL (0.7-4.9); Lymphocytes % 8.7 % (15.3-44.8); MPV 7.3 fL (7.6-11.3); RBC Red Blood Cell Count 3.94 M/uL (4.33-5.43)
[2022-01-17 20:00] LABS: Protime INR 1.07
--- NOTE | 2022-01-17 20:06 | RAD REPORT ---
EXAM DESCRIPTION: RAD - Chest Single View - 01/17/2022 7:47 pm CLINICAL HISTORY: CONGESTION COMPARISON: Abdomen 1 View (KUB) dated 04/16/2021; Chest Single View dated 04/16/2021; Chest Single Vi ew dated 04/17/2020; Chest Single View dated 08/04/2019 FINDINGS: Lines: None. Lungs: No evidence of edema or pneumonia. Pleural: No significant pleural effusions or pneumothorax. Cardiac: Cardiomegaly. Bones: No acute fractures. Other: IMPRESSION: No acute cardiopulmonary disease.
[2022-01-17 20:08] LABS: Albumin 3.2 g/dL (3.4-5.0); Bilirubin Direct 0.1 mg/dL (0-0.2); Bilirubin Total 0.4 mg/dL (0.2-1.0); Magnesium 1.9 mg/dL (1.8-2.4); Potassium 3.9 mmol/L (3.5-5.1)
[2022-01-17 21:01] LABS: Urine Blood Trace-intact (Negative); Urine Glucose 1+ (Negative); Urine Protein Negative (Negative); Urine Specific Gravity >=1.030 (1.005-1.030)
[2022-01-17] MEDS ORDERED: NA CHLORIDE 0.9% 500 ML ONE (21:25)
[2022-01-17 21:36] LABS: Urine Bacteria <20 /HPF (NONE SEEN); Urine RBC <5 /HPF (NONE SEEN)
[2022-01-17] MEDS ORDERED: INSULIN -REGULAR HUMAN 50 UNIT/0.5 ML ML ONE (21:41)
--- NOTE | 2022-01-17 23:02 | ER ---
Nurse's Notes [facility] Name: Gabriel Castillo Age: 81 yrs Sex: Male : 1940 Arrival Date: 01/17/2022 Time: 18:03 Bed 18 Private MD: Diagnosis: Unspecified dementia with behavioral disturbance;Other specified diabetes mellitus with hyperglycemia Presentation: 01/17 18:19 Chief complaint: EMS states: From [facility]. EMS was called due to ww possible CVA. Patient was sitting in chair eating dinner and was leaning to the left side. EMS states once they arrived and sat patient up his deficits were normal. Staff told EMS he is more drowsy today than normal. Coronavirus screen: Client denies travel out of the [place] in the last 14 days. Ebola Screen: Patient denies travel to an Ebola-affected area in the 21 days before illness onset. Initial Sepsis Screen: Does the patient meet any 2 criteria? No. Patient's initial sepsis screen is negative. Does the patient have a suspected source of infection? No. Patient's initial sepsis screen is negative. Risk Assessment: Do you want to hurt yourself or someone else? Unable to obtain. Onset of symptoms was January 17, 2022. 18:19 Method Of Arrival: EMS: [facility] ww 18:19 Acuity: DAVID 3 ww Triage Assessment: 18:21 General: Appears in no apparent distress. Behavior is quiet, uncooperative. Pain: ww Unable to use pain scale. Patient appears confused, quiet. Neuro: Level of Consciousness is awake, confused, Facial symmetry appears normal, unable to test due to patient not participating. Cardiovascular: Patient's skin is warm and dry. Respiratory: Airway is patent Respiratory effort is even, unlabored, Respiratory pattern is regular, symmetrical. GI: No signs and/or symptoms were reported involving the gastrointestinal system. Derm: No signs and/or symptoms reported regarding the dermatologic system. Historical: - Allergies: 18:21 Iodine; ww - Home Meds: 18:21 amlodipine 5 mg tab 1 tab once daily [Active]; aspirin 81 mg Oral chew 1 tab once daily ww [Active]; atorvastatin 20 mg Oral tab 1 tab once daily [Active]; donepezil 10 mg Oral tab 1 tab twice a day [Active]; hydrochlorothiazide 50 mg Oral tab 1 tab once daily [Active]; lisinopril 40 mg Oral tab 1 tab once daily [Active]; omeprazole 40 mg Oral cpDR 1 cap 2 times per day [Active]; tamsulosin 0.4 mg Oral cp24 1 cap once daily [Active]; memantine 10 mg oral tab 1 tab 2 times per day [Active]; Claritin 10 mg Oral tab 1 tab once daily [Active]; ferrous sulfate 7.5 mg iron/0.5 mL oral syrg [Active]; folic acid 1 mg Oral tab 1 tab once daily [Active]; cyanocobalamin (vitamin B-12) 500 mcg oral tab [Active]; nystatin 100,000 unit/gram Topical crea 2 times per day [Active]; - PMHx: 18:21 Diabetes - NIDDM; High Cholesterol; Hypertension; Parkinsons; tremors; Alzheimer's ww disease; Cerebrovascular accident; prostate cancer; bph; Anemia; dysphagia; - Immunization history:: Adult Immunizations unknown. - Social history:: Smoking status: unknown. Screenin:30 Abuse screen: Denies threats or abuse. Nutritional screening: unable to obtain. ww Tuberculosis screening: unable to obtain. 20:38 Fall Risk No fall in past 12 months (0 pts). Secondary diagnosis (15 points) ll3 Alzheimer's, dementia, IV access (20 points). Ambulatory Aid- None/Bed Rest/Nurse Assist (0 pts). Gait- Normal/Bed Rest/Wheelchair (0 pts) Mental Status- Overestimates/Forgets Limitations (15 pts.). Total Garcia Fall Scale indicates High Risk Score (45 or more points). Fall prevention measures have been instituted. Side Rails Up X 2 Placed Close to Nursing Station Frequent Obs/Assessments Occuring Family Present and informed to notify staff if the need to leave the bedside As available patient and family educated on Fall Prevention Program and Strategies. Assessment: 18:30 Reassessment: Patient appears in no apparent distress at this time. No changes from ww previously documented assessment. Patient and/or family updated on plan of care and expected duration. Pain level reassessed. see triage assessment. Family at bedside. 19:30 Reassessment: No changes from previously documented assessment. Patient and/or family ll3 updated on plan of care and expected duration. Pain level reassessed. Patient is alert, oriented x 3, equal unlabored respirations, skin warm/dry/pink. 20:38 Reassessment: No changes from previously documented assessment. Patient and/or family ll3 updated on plan of care and expected duration. Pain level reassessed. Patient is alert, oriented x 3, equal unlabored respirations, skin warm/dry/pink. 21:30 Reassessment: No changes from previously documented assessment. Patient and/or family ll3 updated on plan of care and expected duration. Pain level reassessed. Patient is alert, oriented x 3, equal unlabored respirations, skin warm/dry/pink. 22:30 Reassessment: No changes from previously documented assessment. Patient and/or family ll3 updated on plan of care and expected duration. Pain level reassessed. Patient is alert, oriented x 3, equal unlabored respirations, skin warm/dry/pink. 23:37 Reassessment: No changes from previously documented assessment. Patient and/or family ll3 updated on plan of care and expected duration. Pain level reassessed. Patient is alert, oriented x 3, equal unlabored respirations, skin warm/dry/pink. Vital Signs: 18:19 BP 118 / 81; Pulse 75; Resp 16; Temp 98.3; Pulse Ox 99% on R/A; Weight 99.79 kg; Height ww 5 ft. 10 in. (177.80 cm); 19:30 BP 124 / 52; Pulse 82; Resp 18; Pulse Ox 96% on R/A; ll3 20:30 BP 127 / 80; Pulse 73; Resp 16; Pulse Ox 97% on R/A; ll3 21:30 BP 139 / 88; Pulse 67; Resp 18; Pulse Ox 98% on R/A; ll3 22:30 BP 134 / 66; Pulse 69; Resp 17; Pulse Ox 98% on R/A; ll3 23:15 BP 127 / 67; Pulse 87; Resp 18; Pulse Ox 98% on R/A; ll3 18:19 Body Mass Index 31.57 (99.79 kg, 177.80 cm) ww ED Course: 18:03 Patient arrived in ED. eb 18:19 Elizabeth Moreno, RN is Primary Nurse. ww 18:21 Triage completed. ww 18:21 Arm band placed on. ww 18:30 Patient has correct armband on for positive identification. Placed in gown. Bed in low ww position. Call light in reach. Side rails up X2. Adult w/ patient. Pulse ox on. NIBP on. 19:03 Renato Malhotra MD is Attending Physician. [facility] 19:14 Primary Nurse role handed off by Elizabeth Moreno RN mw2 19:17 Inserted saline lock: 22 gauge in right wrist, using aseptic technique. zm 19:26 CT Stroke Brain w/o Contrast In Process Unspecified. EDMS 19:35 Justice Fitzpatrick RN is Primary Nurse. ll3 19:43 Ptt, Activated Sent. zm 19:43 Protime (+inr) Sent. zm 19:43 Magnesium Sent. zm 19:43 Hepatic Function Sent. zm 19:43 CBC with Diff Sent. zm 19:43 Basic Metabolic Panel Sent. zm 19:43 Amylase, Serum Sent. zm 19:48 Stroke CXR 1 View In Process Unspecified. EDMS 20:38 No provider procedures requiring assistance completed. ll3 23:36 IV discontinued, intact, bleeding controlled, No redness/swelling at site. Pressure ll3 dressing applied. Administered Medications: 21:22 Drug: NS 0.9% 500 ml Route: IV; Rate: bolus; Site: right wrist; ll3 22:49 Follow up: Response: No adverse reaction; IV Status: Completed infusion; IV Intake: ll3 500ml 21:36 Drug: Insulin Regular Human 5 units {Co-Signature: vc1 (Janet Mittal RN).} Route: ll3 IVP; Site: right wrist; 22:49 Follow up: Response: No adverse reaction; Blood sugar is lowered ll3 Medication: 20:38 VIS not applicable for this client. ll3 Point of Care Testing: Blood Glucose: 22:48 Blood Glucose: 216 mg/dL; ll3 Ranges: Intake: 22:49 IV: 500ml; Total: 500ml. ll3 Outcome: 23:02 Discharge ordered by . [facility] 23:37 Discharged to longterm. Report called to PRETTY Buciospanish translator form completed. ll3 23:37 Condition: stable 23:37 Discharge instructions given to longterm, EMS, Instructed on discharge instructions, follow up and referral plans. Demonstrated understanding of instructions, follow-up care. 23:38 Patient left the ED. ll3 Signatures: Dispatcher [employer] EDDC Herrera Louise mw2 Shakira Levi Maurice, MD MD [facility] Justice Fitzpatrick RN RN ll3 Elizabeth Moreno RN RN Kristy Mendiola RN vc1 Corrections: (The following items were deleted from the chart) 18:28 18:21 PMHx: Dementia; [facility] 22:53 22:00 Reassessment: No changes from previously documented assessment. Patient and/or ll3 family updated on plan of care and expected duration. Pain level reassessed. Patient is alert, oriented x 3, equal unlabored respirations, skin warm/dry/pink. ll3
--- NOTE | 2022-01-17 23:03 | EDPHYS ---
Physician Documentation [facility] Name: Gabriel Castillo Age: 81 yrs Sex: Male : 1940 Arrival Date: 01/17/2022 Time: 18:03 Bed 18 Private MD: ED Physician Renato Malhotra HPI: 01/17 19:20 This 81 yrs old Male presents to ER via EMS with complaints of AMS, possible stroke. mh7 19:20 The patient presents with decreased mental status, leaning to left side. Onset: The mh7 symptoms/episode began/occurred today. Possible causes: CVA or TIA. Associated signs and symptoms: Pertinent positives: confusion. Current symptoms: In the emergency department the patient's symptoms have improved, moderately. Patient's baseline: Neuro: alert but confused, orientated to person, Motor: contracted, in the lower extremities, Ambulation: unable to walk, is bedridden, uses wheelchair, Speech: the patient can speak but doesn't make sense, The patient has a previous history of Dementia. Unable to obtain HPI due to baseline dementia, Somnolent. EMS reports that [place] staff called due to patient leaning to left side while in wheelchair after eating. EMS states that he was easily arousable for them and without obvious focal neurologic deficits. Historical: - Allergies: 18:21 Iodine; ww - Home Meds: 18:21 amlodipine 5 mg tab 1 tab once daily [Active]; aspirin 81 mg Oral chew 1 tab once daily ww [Active]; atorvastatin 20 mg Oral tab 1 tab once daily [Active]; donepezil 10 mg Oral tab 1 tab twice a day [Active]; hydrochlorothiazide 50 mg Oral tab 1 tab once daily [Active]; lisinopril 40 mg Oral tab 1 tab once daily [Active]; omeprazole 40 mg Oral cpDR 1 cap 2 times per day [Active]; tamsulosin 0.4 mg Oral cp24 1 cap once daily [Active]; memantine 10 mg oral tab 1 tab 2 times per day [Active]; Claritin 10 mg Oral tab 1 tab once daily [Active]; ferrous sulfate 7.5 mg iron/0.5 mL oral syrg [Active]; folic acid 1 mg Oral tab 1 tab once daily [Active]; cyanocobalamin (vitamin B-12) 500 mcg oral tab [Active]; nystatin 100,000 unit/gram Topical crea 2 times per day [Active]; - PMHx: 18:21 Diabetes - NIDDM; High Cholesterol; Hypertension; Parkinsons; tremors; Alzheimer's ww disease; Cerebrovascular accident; prostate cancer; bph; Anemia; dysphagia; - Immunization history:: Adult Immunizations unknown. - Social history:: Smoking status: unknown. ROS: 19:20 Unable to obtain ROS due to baseline dementia, somnolent. 7 Exam: 19:20 Head/Face: Normocephalic, atraumatic. Eyes: Pupils equal round and reactive to light, mh7 extra-ocular motions intact. Lids and lashes normal. Conjunctiva and sclera are non-icteric and not injected. Cornea within normal limits. Periorbital areas with no swelling, redness, or edema. Neck: Trachea midline, no thyromegaly or masses palpated, and no cervical lymphadenopathy. Supple, full range of motion without nuchal rigidity, or vertebral point tenderness. No Meningismus. Chest/axilla: Normal chest wall appearance and motion. Nontender with no deformity. No lesions are appreciated. Cardiovascular: Regular rate and rhythm with a normal S1 and S2. No gallops, murmurs, or rubs. Normal PMI, no JVD. No pulse deficits. Respiratory: Lungs have equal breath sounds bilaterally, clear to auscultation and percussion. No rales, rhonchi or wheezes noted. No increased work of breathing, no retractions or nasal flaring. Abdomen/GI: Soft, non-tender, with normal bowel sounds. No distension or tympany. No guarding or rebound. No evidence of tenderness throughout. Skin: Warm, dry with normal turgor. Normal color with no rashes, no lesions, and no evidence of cellulitis. 19:20 Constitutional: The patient appears contracted, somnolent, arousable to tactile stimuli 19:20 Musculoskeletal/extremity: contracted lower extremities. 19:20 Neuro: Orientation: unable to test, the patient has a history of dementia, Mentation: [facility] unable to test, the patient has a history of dementia, Memory: unable to test, the patient has a history of dementia, Cranial nerves: unable to test, the patient has a history of dementia, Cerebellar function: unable to test, the patient has a history of dementia, Motor: the patient is contracted, Sensation: no obvious gross deficits, Gait: not tested. seizure activity, is not displayed by the patient, Abnormal movements: there are no abnormal movements. Vital Signs: 18:19 BP 118 / 81; Pulse 75; Resp 16; Temp 98.3; Pulse Ox 99% on R/A; Weight 99.79 kg; Height ww 5 ft. 10 in. (177.80 cm); 19:30 BP 124 / 52; Pulse 82; Resp 18; Pulse Ox 96% on R/A; ll3 20:30 BP 127 / 80; Pulse 73; Resp 16; Pulse Ox 97% on R/A; ll3 21:30 BP 139 / 88; Pulse 67; Resp 18; Pulse Ox 98% on R/A; ll3 22:30 BP 134 / 66; Pulse 69; Resp 17; Pulse Ox 98% on R/A; ll3 23:15 BP 127 / 67; Pulse 87; Resp 18; Pulse Ox 98% on R/A; ll3 18:19 Body Mass Index 31.57 (99.79 kg, 177.80 cm) ww MDM: 22:55 Differential Diagnosis: CVA, electrolyte abnormality, hypoglycemia, intracranial bleed, mh7 seizure, TIA, UTI, volume depletion. Data reviewed: vital signs, nurses notes, EMS record, [facility] records, old medical records, lab test result(s), cardiac enzymes, CBC, electrolytes, urinalysis, EKG, radiologic studies, CT scan, plain films. Data interpreted: Pulse oximetry: on room air is 98 %. Interpretation: normal. Counseling: I had a detailed discussion with the patient and/or guardian regarding: the historical points, exam findings, and any diagnostic results supporting the discharge/admit diagnosis, lab results, radiology results. Response to treatment: the patient's symptoms have resolved after treatment, the patient's blood pressure is in an acceptable range, mental status has returned to baseline, the patient no longer shows bradycardia, the patient is not short of breath, the patient is not tachycardic, the patient's pain is gone, the patient's temperature has normalized. ED course: NAD, VSS, no focal neurological deficits. Patient's and daughter have been by bedside since patient in ER. They state he has been at his baseline and have not noticed any weakness, facial drooping, change in mental status. Discussed all test results and findings they note that he is DNR and decline any treatment even if stroke was present would not want thrombolytics. They request patient return to [facility].. 23:02 Patient medically screened. [facility] 01/17 18:52 Order name: Amylase, Serum; Complete Time: 21:13 [facility] 01/17 18:52 Order name: Basic Metabolic Panel; Complete Time: 21:13 [facility] 01/17 18:52 Order name: CBC with Diff; Complete Time: 20:03 [facility] 01/17 18:52 Order name: Hepatic Function; Complete Time: 21:13 [facility] 01/17 18:52 Order name: Magnesium; Complete Time: 21:13 [facility] 01/17 18:52 Order name: Protime (+inr); Complete Time: 20:03 [facility] 01/17 18:52 Order name: Ptt, Activated; Complete Time: 20:03 [facility] 01/17 19:18 Order name: Troponin High Sensitivity; Complete Time: 20:28 [facility] 01/17 19:32 Order name: COVID-19 SARS RT PCR (Document "Date of Onset" if Symptomatic); Complete [facility] Time: 21:38 01/17 19:32 Order name: Influenza Screen (a \\T\\ B); Complete Time: 21:06 [facility] 01/17 20:26 Order name: Urine Microscopic Only; Complete Time: 21:38 6 01/17 20:35 Order name: Glucose, Ancillary Testing; Complete Time: 20:40 [facility] 01/17 21:01 Order name: Urine Dipstick-Ancillary; Complete Time: 21:06 [facility] 01/17 23:00 Order name: Glucose, Ancillary Testing; Complete Time: 23:03 [facility] 01/17 18:52 Order name: CT Stroke Brain w/o Contrast; Complete Time: 20:03 [facility] 01/17 18:52 Order name: Stroke CXR 1 View; Complete Time: 20:08 [facility] 01/17 18:52 Order name: EKG; Complete Time: 18:53 [facility] 01/17 18:52 Order name: Accucheck; Complete Time: 20:25 [facility] 01/17 18:52 Order name: Cardiac monitoring; Complete Time: 19:35 [facility] 01/17 18:52 Order name: EKG - Nurse/Tech; Complete Time: 19:35 [facility] 01/17 18:52 Order name: IV Saline Lock; Complete Time: 19:17 [facility] 01/17 18:52 Order name: Labs collected and sent; Complete Time: 19:43 [facility] 01/17 18:52 Order name: NPO; Complete Time: 19:35 [facility] 01/17 18:52 Order name: O2 Per Protocol; Complete Time: 19:36 [facility] 01/17 18:52 Order name: O2 Sat Monitoring; Complete Time: 19:36 [facility] 01/17 19:18 Order name: Urine Dipstick-Ancillary (obtain specimen); Complete Time: 21:01 [facility] 01/17 19:18 Order name: Accucheck Blood Glucose; Complete Time: 20:25 [facility] 01/17 22:42 Order name: Accucheck Blood Glucose; Complete Time: 22:49 [facility] Administered Medications: 21:22 Drug: NS 0.9% 500 ml Route: IV; Rate: bolus; Site: right wrist; 3 22:49 Follow up: Response: No adverse reaction; IV Status: Completed infusion; IV Intake: ll3 500ml 21:36 Drug: Insulin Regular Human 5 units {Co-Signature: vc1 (Janet Mittal RN).} Route: ll3 IVP; Site: right wrist; 22:49 Follow up: Response: No adverse reaction; Blood sugar is lowered ll3 Point of Care Testing: Blood Glucose: 22:48 Blood Glucose: 216 mg/dL; ll3 Ranges: Critical Glucose Levels:Adult <50 mg/dl or >400 mg/dl <40 mg/dl or >180 mg/dl Disposition Summary: 01/17/22 23:02 Discharge Ordered Location: Home [facility] Problem: an ongoing problem [facility] Symptoms: have improved [facility] Condition: Stable [facility] Diagnosis - Unspecified dementia with behavioral disturbance 7 - Other specified diabetes mellitus with hyperglycemia [facility] Followup: [facility] - With: Private Physician - When: 1 - 2 days - Reason: Worsening of condition, Recheck today's complaints, Continuance of care, Re-evaluation by your physician Discharge Instructions: - Discharge Summary Sheet 7 - Dementia 7 - Hyperglycemia, [id number] [facility] Forms: - Medication Reconciliation Form [facility] - Thank You Letter 7 - Antibiotic Education 7 - Prescription Opioid Use [facility] - SBAR form ll3 Signatures: Dispatcher [employer] EDMS Momo Cuellar, BAIT PACKER-C BAIT PACKER-Cla1 China Ambriz MD MD ma2 Renato Malhotra MD MD mh7 Paxton Warner RN RN as6 Justice Fitzpatrick RN RN ll3 Elizabeth Moreno RN RN ww Janet Mittal RN vc1 Corrections: (The following items were deleted from the chart) 18:28 18:21 PMHx: Dementia; erick su[facility]
[2022-01-17 23:52] VITALS: TEMP 98.3
[2022-01-17 23:58] VITALS: O2SAT 98
[2022-01-18 00:19] VITALS: BP 127/67
--- NOTE | 2022-01-18 19:16 | EKG ---
Test Date: 2022-01-17 Test Time: 19:36:19 Otolaryngology Teacher: VERONIQUE MEASUREMENT RESULTS: Intervals: Rate: 82 [place]: QRSD: 74 QT: 390 QTc: 455 [place]: P: IL: QRS: -18 T: -36 INTERPRETIVE STATEMENTS: Atrial fibrillation Nonspecific ST and T wave abnormality, probably digitalis effect Abnormal ECG Compared to ECG 04/16/2021 09:15:32 No significant changes Electronically Signed On 01-18-22 19:15:24 CDT by Jorge Salmeron
== END 2022-01-17 23:38 | disposition home or self-care (01) ==
LOC: ER 18:00
DX: E13.65 Other specified diabetes mellitus with hyperglycemia (principal); G30.9 Alzheimer's disease, unspecified; F02.80 Dementia in other diseases classified elsewhere, unspecified severity, without behavioral disturbance, psychotic disturbance, mood disturbance, and anxiety; G20 Parkinson's disease; I10 Essential (primary) hypertension; Z86.73 Personal history of transient ischemic attack (TIA), and cerebral infarction without residual deficits; Z20.822 Contact with and (suspected) exposure to COVID-19; Z91.048 Other nonmedicinal substance allergy status
CPT/HCPCS: 96361; 93005; 85025; 80048; 36415; 82150; 83735; 85610; 82947 ×2; 80076; 85730; 84484; 87804 ×2; 70450; 71045; 96374; 99284; U0003; J1815; J7040; 81003; 81015